=== PATIENT | female | born 1930 | race Hispanic/Latino ===

== ENCOUNTER 2017-08-02 16:44 | Inpatient (IN) | payer MEDICARE ==
--- NOTE | 2017-08-02 17:32 | ED PDOC ---
Arrival/HPI - General Chief Complaint: Eye Problem Time Seen by Provider: 08/02/17 17:23 Historian: Patient, Family - History of Present Illness Narrative History of Present Illness (Text): 87yoF, htn, mitral stenosis, cad, hl, afib on coumadin, stroke with left sided weakness and expressive aphasia but speaking well at this time and had some blurry vision transiently about 1 hr about and feels some right leg pain but otherwise no n/v/berry/dizziness/sob/chest pain/abdomen pain/numbness/tingling/ loss of limb function. 08/02/17 17:30 Time/Duration: 1 hour Symptom Onset: Sudden Symptom Course: Resolved Quality: Aching Severity Level: 1 Activities at Onset: Rest Context: Sitting Past Medical History - Provider Review Nursing Documentation Reviewed: Yes - Travel History Have you recently traveled outside [place] w/in the past 3 mons?: No - Infectious Disease Hx of Infectious Diseases: None - Cardiac Hx Cardiac Disorders: Yes (MITRAL STENOSIS) Hx Hypertension: Yes Hx Mitral Valve Prolapse: Yes - Pulmonary Hx Respiratory Disorders: Yes (PE 05-19-16,SMOKED CIGARETTES 1/2 PPD. QUIT) - Neurological Hx Neurological Disorder: Yes HX Cerebrovascular Accident: Yes (EXPRESSIVE APHASIA) - Renal Hx Renal Disorder: Yes (BLADDER CA WITH CHEMO TX.) - Musculoskeletal/Rheumatological Hx Falls: No - Genitourinary/Gynecological Hx Genitourinary Disorders: Yes Other/Comment: bladder CA - Psychiatric Hx Substance Use: No - Surgical History Hx Coronary Stent: Yes (x2) - Anesthesia Hx Anesthesia: Yes Hx Anesthesia Reactions: No Hx Malignant Hyperthermia: No Family/Social History - Physician Review Nursing Documentation Reviewed: Yes Family/Social History: No Known Family HX Smoking Status: Former Smoker Hx Alcohol Use: No Hx Substance Use: No Allergies/Home Meds Allergies/Adverse Reactions: Allergies No Known Allergies Allergy (Verified 08/02/17 17:02) Home Medications: Home Meds Medication Instructions Recorded Confirmed Atenolol [Tenormin] 50 mg PO DAILY 05/19/16 05/19/16 Atorvastatin [Lipitor] 40 mg PO DAILY 05/19/16 05/19/16 Lisinopril [Zestril] 20 mg PO DAILY 05/19/16 05/19/16 Warfarin [Coumadin] 2 mg PO 1800 05/19/16 05/19/16 amLODIPine [Norvasc] 10 mg PO DAILY 05/19/16 05/19/16 Review of Systems - Review of Systems Constitutional: Normal Eyes: Vision Changes ENT: Normal Respiratory: Normal Cardiovascular: Normal Gastrointestinal: Normal Genitourinary Female: Normal Musculoskeletal: Arthralgias Skin: Normal Neurological: Normal Endocrine: Normal Hemo/Lymphatic: Normal Psychiatric: Normal Physical Exam Vital Signs Reviewed: Yes Vital Signs Temp Pulse Resp BP Pulse Ox 08/02/17 16:59 97.9 F 110 H 18 145/93 H 97 Temperature: Afebrile Blood Pressure: Hypertensive Pulse: Tachycardic Respiratory Rate: Normal Appearance: Positive for: Well-Appearing, Non-Toxic, Comfortable Pain Distress: None Mental Status: Positive for: Alert and Oriented X 3 - Systems Exam Head: Present: Atraumatic, Normocephalic Pupils: Present: PERRL Extroacular Muscles: Present: EOMI Conjunctiva: Present: Normal Ears: Present: Normal Mouth: Present: Moist Mucous Membranes Pharnyx: Present: Normal Nose (External): Present: Atraumatic Nose (Internal): Present: Normal Inspection Neck: Present: Normal Range of Motion Respiratory/Chest: Present: Clear to Auscultation, Good Air Exchange Cardiovascular: Present: Regular Rate and Rhythm Abdomen: No: Tenderness, Distention, Normal Bowel Sounds, Peritoneal Signs, Rebound, Guarding, McBurney's Point Tender, Rovsing's Sign Present, Hernias, Feeding Tubes, Ostomy Tubes, Mass/Organomegaly, Scars, Other Back: Present: Normal Inspection Upper Extremity: Present: Normal Inspection Lower Extremity: Present: Normal Inspection Neurological: Present: GCS=15, CN II-XII Intact, Speech Normal, Motor Func Grossly Intact Skin: Present: Warm, Normal Color Psychiatric: Present: Alert, Oriented x 3, Normal Insight, Normal Concentration Medical Decision Making ED Course and Treatment: 87yoF, htn, mitral stenosis, cad, hl, afib on coumadin, stroke with left sided weakness and expressive aphasia but speaking well at this time and had some blurry vision transiently about 1 hr about and feels some right leg pain but otherwise no n/v/berry/dizziness/sob/chest pain/abdomen pain/numbness/tingling/ loss of limb function. 08/02/17 17:36 08/02/17 18:35 CT head no acute infarct. No ICH. CXR active CHF, possible right infrahilar infiltrate which is likely a function of CHF as well. 08/02/17 18:36 ct pelvis no fracture 08/02/17 18:37 wbc 7 hb 12 plts 302 trop 0.02 INR 4.00 08/02/17 18:37 08/02/17 18:[address] Myers who hs hx of cva with transient blurry vision which resolved, pt with good strength/sensation on repeat eval, he accepted the patient to tele , with neurology consult Dr. Armenta. 08/02/17 19:03 Reassessment Condition: Re-examined, Improved - Lab Interpretations Lab Results: 08/02/17 17:40 08/02/17 17:40 Lab Results 08/02/17 17:40: Sodium 140, Potassium 5.2 H, Chloride 105, Carbon Dioxide 23, Anion Gap 17, BUN 29 H, Creatinine 1.1, Est GFR ( Amer) 57, Est GFR (Non- Af Amer) 47, Random Glucose 149 H, Calcium 9.8, Magnesium 1.7, Total Bilirubin 1.1, AST 31, ALT 24, Alkaline Phosphatase 63, Lactate Dehydrogenase 785 H, Total Creatine Kinase 110, Troponin I 0.02, Total Protein 7.6, Albumin 4.1, Globulin 3.5, Albumin/Globulin Ratio 1.2 08/02/17 17:40: PT 46.9 H, INR 4.00 H*, APTT 41.5 H 08/02/17 17:40: WBC 7.2, RBC 4.41, Hgb 12.1, Hct 37.6, MCV 85.3, MCH 27.4, MCHC 32.2, RDW 14.3, Plt Count 302, MPV 9.8, Gran % 64.0, Lymph % (Auto) 19.1 L, [place] % (Auto) 10.8 H, Eos % (Auto) 5.8 H, Baso % (Auto) 0.3, Gran # 4.63, Lymph # (Auto) 1.4, [place] # (Auto) 0.8 H, Eos # (Auto) 0.4, Baso # (Auto) 0.02 I have reviewed the lab results: Yes - RAD Interpretation Radiology Orders: 08/02/17 17:28 HEAD W/O CONTRAST [CT] Stat CHEST PORTABLE [RAD] Stat 08/02/17 17:29 PELVIS W/O PO OR IV CONTRAST [CT] Stat Human Resource Officer: Radiologist (see mdm) - EKG Interpretation Interpreted by ED Physician: Yes (brittany) Type: 12 lead EKG - Medication Orders Current Medication Orders: Amlodipine Besylate (Norvasc) 10 mg PO DAILY ALISSA Atenolol (Tenormin) 50 mg PO DAILY ALISSA Atorvastatin Calcium (Lipitor) 40 mg PO HS ALISSA Lisinopril (Zestril) 20 mg PO DAILY ALISSA NIHSS Stroke Scale 3 - Date/Time Evaluation Performed Date Performed: 08/02/17 When Was NIHSS Performed: Baseline - How Severe is the Stroke Level of Consciousness: 0=Alert LOC to Questions: 0=Both comments correct LOC to commands: 0=Obeys both correctly Best Gaze: 0=Normal Visual: 0=No visual loss Facial: 0=Normal Motor Arm - Left: 0=No drift Motor Arm - Right: 0=No drift Motor Leg - Left: 0=No drift Motor Leg - Right: 0=No drift Limb Ataxia: 0=Absent Sensory: 0=Normal Best Language: 0=No aphasia Dysarthia: 0=Normal articulation Extinction & Inattention (Neglect): 0=Normal, no object Score: 0 Disposition/Present on Arrival - Present on Arrival Any Indicators Present on Arrival: No History of DVT/PE: No History of Uncontrolled Diabetes: No Urinary Catheter: No History of Decub. Ulcer: No History Surgical Site Infection Following: None - Disposition Have Diagnosis and Disposition been Completed?: Yes Diagnosis: Blurry vision, CHF (congestive heart failure) Disposition: HOSPITALIZED Disposition Time: 19:04 Patient Plan: Admission, Telemetry Condition: IMPROVED Discharge Instructions (ExitCare): Heart Failure (ED) Referrals: Elder Faith MD [Primary Care Provider] - Follow up with primary Forms: [employer] (Pakistani)
[2017-08-02 18:01] LABS: BASO # 0.02 K/mm3 (0.0-2.0); BASO % 0.3 % (0.0-3.0); EOS # 0.4 (0.0-0.7); EOS % 5.8 % (1.5-5.0); GRAN # 4.63 (1.4-6.5); HEMOGLOBIN 12.1 g/dL (12.0-16.0); LYMPH # 1.4 (1.2-3.4); LYMPH % 19.1 % (22.0-35.0); MEAN CELL VOLUME 85.3 fl (80.0-105.0); MEAN CORPUSCULAR HEMOGLOBIN 27.4 pg (25.0-35.0); MEAN CORPUSCULAR HGB CONC 32.2 g/dl (31.0-37.0); MEAN PLATELET VOLUME 9.8 fl (7.0-11.0); MONO # 0.8 (0.1-0.6); MONO % 10.8 % (1.0-6.0); RBC 4.41 10^6/uL (3.5-6.1); RED CELL DISTRIBUTION WIDTH 14.3 % (11.5-14.5); WHITE BLOOD COUNT 7.2 10^3/ul (4.5-11.0)
[2017-08-02 18:14] LABS: ALB/GLOB RATIO 1.2 (1.1-1.8); ALBUMIN 4.1 g/dL (3.0-4.8); CALCIUM 9.8 mg/dL (8.4-10.5)
[2017-08-02 18:19] LABS: PARTIAL THROMBOPLASTIN TIME 41.5 Seconds (25.1-36.5)
[2017-08-02 18:25] LABS: TROPONIN I 0.02 ng/mL
[2017-08-02 18:28] LABS: PROTHROMBIN TIME 46.9 SECONDS (9.4-12.5)
--- NOTE | 2017-08-02 18:31 | CT ---
PROCEDURE: CT HEAD WITHOUT CONTRAST. HISTORY: 87yoF, with transient blurry vision COMPARISON: None available. TECHNIQUE: Axial computed tomography images were obtained through the head/brain without intravenous contrast. Radiation dose: Total exam DLP = 767.03 mGy-cm. This CT exam was performed using one or more of the following dose reduction techniques: Automated exposure control, adjustment of the mA and/or kV according to patient size, and/or use of iterative reconstruction technique. FINDINGS: HEMORRHAGE: No intracranial hemorrhage. BRAIN: No mass effect or edema. Left temporoparietal encephalomalacia consistent with old infarct MCA territory. No evidence of acute infarct. Mild diffuse atrophy. Mild periventricular white matter lucency and patchy foci of deep white matter lucency, consistent with chronic microvascular ischemic change. VENTRICLES: Unremarkable. No hydrocephalus. CALVARIUM: Unremarkable. PARANASAL SINUSES: Chronic sphenoid sinusitis MASTOID AIR CELLS: Unremarkable as visualized. No inflammatory changes. OTHER FINDINGS: None. IMPRESSION: Probable old left temporoparietal infarct. No evidence of acute infarct. No intracranial mass or hemorrhage. Mild atrophy and chronic white matter ischemic change.
--- NOTE | 2017-08-02 18:35 | CT ---
PROCEDURE: CT pelvis HISTORY: 87yoF, right hip pain/tenderness COMPARISON: Not available TECHNIQUE: 2.5 mm contiguous axial sections were acquired through the pelvis. Sagittal and coronal images were reformatted from the axial scan. FINDINGS: There is no evidence of fracture. The hips and sacroiliac joints are preserved. Soft tissues of the pelvis are unremarkable. The patient is status post hysterectomy. There is rectosigmoid diverticular disease without evidence of diverticulitis. There is no ascites. There is no pelvic lymphadenopathy. The urinary bladder is unremarkable. IMPRESSION: No evidence of pelvic fracture. Unremarkable.
--- NOTE | 2017-08-02 18:55 | RAD ---
HISTORY: blurry vision COMPARISON: Portable chest 05/22/2016. FINDINGS: LUNGS: Questionable right infrahilar infiltrate with no left-sided infiltrate appreciated. PLEURA: Trace bilateral pleural effusions appear about the bilateral costophrenic sulci. No pneumothorax bilaterally. CARDIOVASCULAR: Cardiac silhouette appears stable. Pulmonary venous congestion is likely recurrent. OSSEOUS STRUCTURES: No significant abnormalities. VISUALIZED UPPER ABDOMEN: Normal. OTHER FINDINGS: None. IMPRESSION: Active CHF though not as advanced as previously shown. Possible right infrahilar infiltrate though this is likely a function of CHF as well.
[2017-08-02 19:05] LABS: URINE BILIRUBIN NEGATIVE (NEGATIVE); URINE BLOOD TRACE-INTACT (NEGATIVE); URINE GLUCOSE (UA) NEGATIVE (NEGATIVE); URINE LEUKOCYTE ESTERASE MODERATE Leu/uL (NEGATIVE); URINE PROTEIN NEGATIVE mg/dL (<30 mg/dL); URINE UROBILINOGEN 0.2 E.U./dL (<1 E.U./dL)
[2017-08-02 19:07] LABS: URINE APPEARANCE SL CLOUDY (CLEAR); URINE COLOR YELLOW (YELLOW)
[2017-08-02 19:19] LABS: URINE BACTERIA MOD (NEG); URINE RBC NEGATIVE /hpf (0-2)
[2017-08-02] MEDS ORDERED: Metoprolol 1 mg/ml Inj IVP STA (20:22)
[2017-08-02] MEDS ORDERED: Pneumococcal 23-Valent Vaccine IM ONE (22:04)
[2017-08-02] MEDS ORDERED: Influenza Vaccine 60 mcg/0.5 mL SYR (4YR UP) IM ONE (22:04)
--- NOTE | 2017-08-02 22:08 | CP.PCM.PN ---
Subjective - Date & Time of Evaluation Date of Evaluation: 08/02/17 Time of Evaluation: 22:02 - Subjective Subjective: draft 22:00 Patient has heart rate on monitor that is fluctuating between 130 and 160.Rhythm is atrial fibrillation. She received Lopressor 5 mg IV in the ER at about 9 PM. 23:10 95/min. Patient was seen at bedside. Has no complaints now. Denies palpitation, chest pain, sob, nausea, sweating. Medical record was reviewed. Objective - Vital Signs/Intake and Output Vital Signs (last 24 hours): Temp Pulse Resp BP Pulse Ox 98.2 F 112 H 18 110/63 100 08/02/17 21:45 08/02/17 21:45 08/02/17 21:45 08/02/17 21:45 08/02/17 21:45 - Medications Medications: Current Medications Amlodipine Besylate (Norvasc) 10 mg PO DAILY ALISSA Atenolol (Tenormin) 50 mg PO DAILY ALISSA Atorvastatin Calcium (Lipitor) 40 mg PO HS ALISSA Lisinopril (Zestril) 20 mg PO DAILY ALISSA - Labs Labs: PT 46.9 SECONDS (9.4-12.5) H 08/02/17 17:40 INR 4.00 (0.93-1.08) H* 08/02/17 17:40 APTT 41.5 Seconds (25.1-36.5) H 08/02/17 17:40
[2017-08-03 10:20] LABS: FREE T4 1.06 ng/dL (0.78-2.19)
[2017-08-03 11:22] VITALS: BMI 26.4
[2017-08-03 12:04] LABS: ALB/GLOB RATIO 1.2 (1.1-1.8); ALBUMIN 3.8 g/dL (3.0-4.8); ALT/SGPT 19 U/L (7-56); AST/SGOT 20 U/L (14-36); BLOOD UREA NITROGEN 22 mg/dL (7-21); CALCIUM 9.5 mg/dL (8.4-10.5); GFR AFRICAN-AMERICAN > 60; GFR NON-AFRICAN AMERICAN 53
--- NOTE | 2017-08-03 16:47 | MRI ---
PROCEDURE: MRI BRAIN WITHOUT CONTRAST HISTORY: blurry vision COMPARISON: None. TECHNIQUE: Multiplanar, multisequence MR images of the brain were obtained without intravenous contrast enhancement. FINDINGS: HEMORRHAGE: None DWI: Several scattered small acute cortical infarcts are seen in the right posterior frontal parietal and occipital lobes. BRAIN PARENCHYMA: No mass effect or edema. There is extensive chronic cystic encephalomalacia in the left temporal and occipital lobes VENTRICLES: Unremarkable. No hydrocephalus. CRANIUM: Unremarkable. ORBITS: Grossly unremarkable. PARANASAL SINUSES/MASTOIDS: Clear VASCULAR SYSTEM: Skull base flow voids intact. OTHER FINDINGS: None. IMPRESSION: Several scattered small acute cortical infarcts in the right posterior frontal, parietal and occipital lobes. Extensive chronic cystic encephalomalacia in the left temporal and occipital lobes
--- NOTE | 2017-08-03 18:38 | CARD ---
APPROVED REPORT EKG Measurement Heart [id number] <Conclusion> Atrial fibrillation with rapid ventricular response Left posterior fascicular block Abnormal QRS-T angle, consider primary T wave abnormality Abnormal ECG
--- NOTE | 2017-08-03 20:24 | US ---
PROCEDURE: Bilateral carotid artery duplex ultrasound HISTORY: Carotid stenosis CVA PHYSICIAN(S): Ed Levi MD. TECHNIQUE: Duplex sonography and color-flow Doppler were used to evaluate the carotid bifurcations and limited segments of the vertebral arteries bilaterally. FINDINGS: There is mild smooth heterogeneous plaque noted at the carotid bifurcations bilaterally. The peak systolic velocity in the proximal right internal carotid artery is 55 cm/sec. This corresponds to a 20 to 39% proximal right ICA stenosis. Normal systolic velocities are noted in the proximal right external carotid artery. There is antegrade flow in the small right vertebral artery. The peak systolic velocity in the proximal left internal carotid artery is 62 cm/sec. This corresponds to a 20 to 39% proximal left ICA stenosis. Normal systolic velocities are noted in the proximal left external carotid artery. There is antegrade flow in the left vertebral artery. IMPRESSION: 1. Bilateral 20-39% proximal ICA stenoses. 2. Antegrade flow in both vertebral arteries.
[2017-08-03] MEDS ORDERED: Sod Polystyrene Sulf 15 gm/60 ml Susp PO ONE (20:47)
--- NOTE | 2017-08-04 06:02 | CON ---
DATE: HISTORY OF PRESENT ILLNESS: This is a 87-year-old female with past medical history of hypertension, mitral stenosis, coronary artery disease, atrial fibrillation, on Coumadin, and the patient had history of stroke with left-sided weakness and came with some blurring of vision and for an hour some right leg pain. No dizziness. No numbness or tingling in arms, legs or face. PAST MEDICAL HISTORY: As above, hypertension, coronary artery disease, mitral stenosis, atrial fibrillation, stroke. ALLERGIES: NO KNOWN DRUG ALLERGIES. HOME MEDICATIONS: Tenormin, Lipitor, Zestril, Coumadin, Norvasc. REVIEW OF SYSTEMS: A 10-point review of systems was negative except blurring of vision. PHYSICAL EXAMINATION VITAL SIGNS: Blood pressure 145/93. HEENT: Normocephalic and atraumatic. NECK: Supple. NEUROLOGIC: Alert, awake, oriented to self. No aphasia. Cranial nerves II through XII were tested. Pupils reactive. EOM intact. Visual fall full. No facial asymmetry. Tongue midline. Motor examination, spontaneous movement of the extremities noted. Deep tendon reflexes 1+. Both plantars are downgoing. Sensory appears intact. Cerebellar, gait deferred. IMPRESSION AND PLAN: Possibly transient ischemic attack like symptoms with blurring of vision, which disappeared. An MRI of the head was done, which showed multiple small acute infarcts in the frontal, parietal, temporal and occipital area. Several scattered small acute cortical infarcts in right frontal, parietal and occipital lobes. The patient is on Coumadin, and continue present management, and we will follow up. Armando Armenta MD
[2017-08-04 07:12] LABS: ALB/GLOB RATIO 1.1 (1.1-1.8); ALBUMIN 3.4 g/dL (3.0-4.8); ALT/SGPT 24 U/L (7-56); AST/SGOT 25 U/L (14-36); BLOOD UREA NITROGEN 23 mg/dL (7-21); CALCIUM 9.1 mg/dL (8.4-10.5); GFR AFRICAN-AMERICAN > 60; GFR NON-AFRICAN AMERICAN 53
[2017-08-04 07:15] LABS: INR 2.89 (0.93-1.08)
--- NOTE | 2017-08-04 08:13 | HP ---
CHIEF COMPLAINT AND HISTORY OF PRESENT ILLNESS: This is an 87-year-old female who came into the hospital because she started having changes in her vision. The patient does have difficulty with speaking at times because of previous CVA. The patient has a past medical history of atrial fibrillation, on Coumadin. She had a stroke in the past with expressive aphasia. The patient has been having blurred vision about an hour prior to coming to the hospital. She called her primary care doctor, Dr. Faith. She was evaluated in the ER and it is felt that symptoms had improved. It is possible she may have a TIA. The patient denies any weakness in the arms or the legs, although in the ER, it was noted by the ER physician that there was some right leg pain. She had no nausea, no vomiting. No headaches, no abdominal pain, or back pain. No dysuria or frequency. No nocturia. She said she feels well. She has no other complaints. REVIEW OF SYMPTOMS: All the review of symptoms are within normal limits. ALLERGIES: NO KNOWN DRUG ALLERGIES. HOME MEDICATIONS: She is on atenolol, atorvastatin, lisinopril, Coumadin, Norvasc. PAST MEDICAL HISTORY: mitral stenosis, hypertension, bladder CA with chemotherapy, and coronary artery disease with stents. SOCIAL HISTORY: The patient was a smoker. She smoked about half a pack per day, but has quit. FAMILY HISTORY: Noncontributory. PHYSICAL EXAMINATION: VITAL SIGNS: Temperature is 98.6, pulse of 105, blood pressure 138/92, O2 saturation is 98%, height is 5 feet 1 inch, and weight 142 pounds. GENERAL: The patient lying in bed, uncomfortable, and in no acute distress. HEENT: Atraumatic and normocephalic. Anicteric sclerae. Moist mucosa. [place] conjunctivae. No oral lesions. NECK: No JVD, anterior and posterior adenopathy, thyromegaly, or bruits. CARDIOVASCULAR: S1 and S2 regular. No murmur, rubs, or gallop. LUNGS: Clear to auscultation bilaterally. No wheezes, rales, or rhonchi. ABDOMEN: Bowel sounds are positive. Soft, nontender and nondistended. No hepatosplenomegaly. No rebound and no guarding EXTREMITIES: No cyanosis, clubbing, or edema. NEUROLOGIC: I did notice a mild expressive aphasia. PSYCHIATRIC: She is awake, alert and oriented x3. No anxiety or depression. She has normal affect. GENITOURINARY: No CVA tenderness. VASCULAR: 2+ pulses in the carotid pulses and pedal pulses. SKIN: No erythema or nodules SPINE: Shows normal curvature. GAIT: The patient was not seen ambulating. LABORATORY DATA: White count of 7.3, hemoglobin of 12.1. INR is 4. Chemistry shows sodium 140, potassium is 5.2. Troponin is 0.02. The proBNP is 3300. TSH is 2.7. The patient's urine shows glucose is negative, ketones are negative, and nitrites are negative. CT of the head shows probable old left temporoparietal infarct. Chest x-ray done shows advanced , possible right hilar infiltrates. There is a pelvic CT done, shows no evidence of pelvic fracture. MRI shows several scattered small acute cortical infarcts to the right posterior frontal, parietal and occipital lobes, extensive chronic cystic encephalopathy, left temporal and occipital lobes. ASSESSMENT: 1. Cerebrovascular accident of right frontal, parietal, and occipital lobes. 2. Atrial fibrillation, on Coumadin on hold 3. Mitral stenosis. 4. History of bladder cancer. 5. Coronary artery disease with stents. 6. Dyslipidemia. 7. Hypertension. 8. Expressive aphasia. PLAN: The patient is admitted to the hospital. Her neurological symptoms have improved. The patient had an MRI that shows multiple abnormalities. The patient is on Cardizem. He is going to be on Lipitor for dyslipidemia. She was in rapid Afib. She was given IV Cardizem. She is on Norvasc for her hypertension. She is on Tenormin and the a fib did improve after she received her medications. Her Coumadin is on hold due to an elevated INR. She is going to be seen by Dr. Easley. The patient is on lisinopril for her hypertension. The patient is going to be on a heart-healthy diet. We will also get physical therapy to see the patient. The patient is going to be admitted then may need rehab depending on what the physical therapy evaluation shows. We will also get Dr. Armenta to evaluate the patient for the neurological symptoms. I did talk to the patient's sister and daughter at the bedside to give an up-to-date on the patient's diagnoses and plan of care. I will also order carotid ultrasound and I will await further input from the specialists. Rock Myers MD MTDDary
[2017-08-04 09:17] LABS: HDL CHOLESTEROL 40 mg/dL (29-60)
[2017-08-04 09:28] LABS: LDL CHOLESTEROL 53 mg/dL (0-129)
--- NOTE | 2017-08-04 11:25 | PN ---
DATE: SUBJECTIVE: The patient has no complaints of any chest pain. No shortness of breath. No headaches. PHYSICAL EXAMINATION VITAL SIGNS: Temperature is 97.5, pulse of 99, blood pressure is 104/67, respirations 19. GENERAL: The patient is lying in bed, flat, comfortable. HEENT: No oral lesion. Anicteric sclerae. Moist mucosa. NECK: No JVD, adenopathy, or thyromegaly. CARDIOVASCULAR: S1 and S2, regular. No murmurs, rubs, or gallops. LUNGS: Clear to auscultation bilaterally. No wheeze, rales, or rhonchi. ABDOMEN: Bowel sounds are positive. Soft, nontender and nondistended. EXTREMITIES: No cyanosis, clubbing or edema. LABORATORY DATA: Calcium is 5.4 yesterday. Carotid ultrasound done shows bilateral 20% to 39% proximal ICA stenosis. ASSESSMENT 1. Acute cerebrovascular accident to the right frontal, parietal and occipital lobes. 2. Coronary artery disease. 3. Dyslipidemia. 4. Hypertension. 5. History of bladder cancer. 6. Expressive aphasia. 7. Atrial fibrillation, on Coumadin. 8. Mitral valve stenosis. PLAN: The patient is currently comfortable. She is on Lipitor for dyslipidemia. The patient is on Norvasc for hypertension. She is going to continue with her atenolol. The patient is on lisinopril for her hypertension. She is on a heart-healthy diet. The Coumadin is on hold because of her elevated INR. She is being followed by Dr. Easley. Currently, she is on aspirin. I will defer management regarding her cardiac disease to Dr. Easley. The patient will most likely need physical therapy. Rock Myers MD
--- NOTE | 2017-08-04 16:29 | PN ---
DATE: SUBJECTIVE: This is an 87-year-old female with past medical history of hypertension, mitral stenosis, coronary artery disease, atrial fibrillation on Coumadin, stroke with left-sided weakness and some blurring of vision. An MRI showed frontal, parietal, and occipital acute infarct and the patient is on Coumadin, doing well. Continue present management. We will follow up. Armando Armenta MD
--- NOTE | 2017-08-04 18:37 | CON ---
DATE: 08/04/2017 INDICATIONS: Atrial fibrillation, stroke. HISTORY OF PRESENT ILLNESS: This is an 87-year-old woman known to our practice, admitted on 08/03/2017 with visual symptoms, found to have stroke. She has chronic expressive aphasia and weakness in her left side from a prior stroke. There is no chest pain, shortness of breath, orthopnea, PND, syncope, presyncope , lightheadedness, dizziness, or vertigo. No fevers, chills, cough, sputum production, or hemoptysis. No abdominal pain, nausea, vomiting, diarrhea, constipation, or melena. PAST MEDICAL HISTORY: Notable for atrial fibrillation, rheumatic mitral stenosis, congestive heart failure, stroke, hypertension, hyperlipidemia, cerebrovascular disease, and bladder cancer. She is a former smoker. MEDICATIONS: At the time of admission include warfarin, Lipitor, Norvasc, Protonix, atenolol, lisinopril, and Coumadin. ALLERGIES: THERE ARE NO MEDICATION ALLERGIES REPORTED. SOCIAL HISTORY: She lives at home. She is a former smoker. She does not drink alcohol significantly. She is ambulatory. FAMILY HISTORY: Noncontributory. REVIEW OF SYSTEMS: A 10-point review of systems is otherwise unremarkable except as noted above. PHYSICAL EXAMINATION: GENERAL: She is well developed, elderly lady, sitting on her bed in telemetry, in no acute distress. VITAL SIGNS: Notable for atrial fibrillation, 80-107 beats per minute. She is afebrile, blood pressure 120/64, respirations 18-20, and O2 sat 95%-97% on room air. HEENT: Reveals no neck vein distention, thyromegaly, or carotid bruits. Mucous membranes are moist. Conjunctivae are pink. NECK: Supple. LUNGS: Lung fall clear. HEART: Reveals an irregular rhythm. Soft systolic murmur along the left sternal border. Possible diastolic rumble. ABDOMEN: Soft, bowel sounds are present. No mass, organomegaly, tenderness, rebound, or guarding. EXTREMITIES: Reveal no cyanosis, clubbing, or edema. NEUROLOGIC: She is awake and alert. She has expressive aphasia. PSYCHIATRIC: Normal as to mood and affect. SKIN: Warm and dry. No rash or cellulitis. LABORATORY AND IMAGING DATA: EKG demonstrates atrial fibrillation, nonspecific ST wave changes. A portable chest x-ray revealed CHF. CT scan of the head revealed probable old left temporoparietal infarct. CT scan of the pelvis revealed no evidence of pelvic fracture, unremarkable study. Brain MRI reveals several scattered small acute cortical infarcts in the posterior frontal, parietal, and occipital lobes, etc. Carotid artery ultrasound reveals bilateral 20%-39% internal carotid artery stenosis. CBC is unremarkable. PT 46.9 initially, INR 4.0 initially, PTT 41.5 initially. Repeat today; PT 34, INR 2.89. Electrolytes notable for potassium of 5.2, repeat 4.8; BUN and creatinine unremarkable. Blood sugar is 100-200 range, magnesium 1.7. LFTs unremarkable. CK 110, troponin 0.02. BNP 3300. Lipids unremarkable. Thyroid studies normal. Urinalysis is noted. IMPRESSION AND PLAN: Shabnam Graff is an 87-year-old woman with rheumatic mitral stenosis; atrial fibrillation, on Coumadin, who presents with visual changes and evidence of new strokes as well as old stroke. These probably are on embolic basis. However, she was supratherapeutic with regard to anticoagulation on her arrival in the emergency room initially. She is undergoing a neurologic evaluation by Dr. Armenta. I have spoken with Dr. Myers. She is getting Lipitor, Norvasc, atenolol, lisinopril. Coumadin can be resumed since she is now in the therapeutic range. She will have a stroke evaluation. I will order an echocardiogram. I will review her old records and speak with Dr. Faith and Dr. Blancas. I will follow along with you. I will make additional recommendations based on her clinical course. Misha Easley MD [facility]
[2017-08-04] MEDS ORDERED: Pantoprazole 40 mg EC Tab PO ONE (20:40)
[2017-08-04 23:28] VITALS: TEMP 97.8
[2017-08-05 05:44] VITALS: O2SAT 96
--- NOTE | 2017-08-05 06:28 | CP.PCM.PN ---
Subjective - Date & Time of Evaluation Date of Evaluation: 08/05/17 Time of Evaluation: 06:27 - Subjective Subjective: draft pt seen protonix for heart burn Objective - Vital Signs/Intake and Output Vital Signs (last 24 hours): Temp Pulse Resp BP Pulse Ox 97.8 F 85 20 135/63 96 08/05/17 05:43 08/05/17 05:43 08/05/17 05:43 08/05/17 05:43 08/05/17 05:43 Intake and Output: 08/04/17 08/05/17 18:59 06:59 Intake Total 640 240 Output Total 0 Balance 640 240 - Medications Medications: Current Medications Acetaminophen (Tylenol 325mg Tab) 650 mg PO Q4H PRN PRN Reason: Headache Last Admin: 08/03/17 10:19 Dose: 325 mg Amlodipine Besylate (Norvasc) 10 mg PO DAILY [facility] Last Admin: 08/04/17 09:17 Dose: 10 mg Atenolol (Tenormin) 50 mg PO DAILY [facility] Last Admin: 08/04/17 09:18 Dose: 50 mg Atorvastatin Calcium (Lipitor) 40 mg PO [facility] Last Admin: 08/04/17 21:17 Dose: 40 mg Lisinopril (Zestril) 20 mg PO DAILY [facility] Last Admin: 08/04/17 09:17 Dose: 20 mg - Labs Labs: 08/04/17 05:30 PT 34.0 SECONDS (9.4-12.5) H 08/04/17 05:30 INR 2.89 (0.93-1.08) H 08/04/17 05:30 APTT 41.5 Seconds (25.1-36.5) H 08/02/17 17:40
[2017-08-05 06:39] LABS: INR 1.9 (0.93-1.08); PROTHROMBIN TIME 22.1 SECONDS (9.4-12.5)
[2017-08-05 06:47] LABS: ALB/GLOB RATIO 1.2 (1.1-1.8); ALBUMIN 3.4 g/dL (3.0-4.8); CALCIUM 9.5 mg/dL (8.4-10.5)
--- NOTE | 2017-08-05 09:48 | CP.PCM.PN ---
Subjective - Date & Time of Evaluation Date of Evaluation: 08/05/17 Time of Evaluation: 07:00 - Subjective Subjective: Stable on 2R. No CP or SOB. She feels OK and wants to go home. Her speech is better. I spoke with Marivel Faith and Magalis yesterday. V/S noted. AF PE: Lungs: clear Cor.: irreg S1S2, sys. murmur, soft rumble Abd.: softExt.: no edema Neuro.: alert Echo: Will read; Prelim> Nl LV, mod.MS with heavy calcification, sev. TR and PH. See full report. Objective - Vital Signs/Intake and Output Vital Signs (last 24 hours): Temp Pulse Resp BP Pulse Ox 97.8 F 113 H 20 126/68 96 08/05/17 05:43 08/05/17 09:36 08/05/17 05:43 08/05/17 09:36 08/05/17 05:43 Intake and Output: 08/05/17 08/05/17 06:59 18:59 Intake Total 240 Balance 240 - Medications Medications: Current Medications Acetaminophen (Tylenol 325mg Tab) 650 mg PO Q4H PRN PRN Reason: Headache Last Admin: 08/03/17 10:19 Dose: 325 mg Amlodipine Besylate (Norvasc) 10 mg PO DAILY [facility] Last Admin: 08/05/17 09:36 Dose: 10 mg Atenolol (Tenormin) 50 mg PO DAILY [facility] Last Admin: 08/05/17 09:36 Dose: 50 mg Atorvastatin Calcium (Lipitor) 40 mg PO HS [facility] Last Admin: 08/04/17 21:17 Dose: 40 mg Lisinopril (Zestril) 20 mg PO DAILY [facility] Last Admin: 08/05/17 09:36 Dose: 20 mg Warfarin Sodium (Coumadin) 5 mg PO 1800 [facility] PRN Reason: Protocol - Labs Labs: 08/05/17 05:30 PT 22.1 SECONDS (9.4-12.5) H 08/05/17 05:30 INR 1.90 (0.93-1.08) H 08/05/17 05:30 APTT 41.5 Seconds (25.1-36.5) H 08/02/17 17:40 Assessment and Plan - Assessment and Plan (Free Text) Assessment: CVAs, old and new, probably embolic in nature AF MS with sev. TR and PH CAD/PCI CHF HBP HLD CVD Former Smoker Bladder cancer Plan: Ok for D/C Out pt f/u. Will consider Watchman device given presumed embolic events on therapeutic coumadin. Probable referral to [facility] for this. As per Neuro., Dr. Myers. Resume warfarin today.
--- NOTE | 2017-08-05 10:37 | CARD ---
APPROVED REPORT EXAM: Two-dimensional and M-mode echocardiogram with Doppler and color Doppler. Other Information Quality : FairRhythm : INDICATION Strokes, AF, MS 2D DIMENSIONS IVSd1.1 (0.7-1.1cm)LVDd3.6 (3.9-5.9cm) LVOT Diameter1.9 (1.8-2.4cm)PWd1.3 (0.7-1.1cm) FS (%) 15.1 % M-Mode DIMENSIONS Left Atrium (MM)5.80 (2.5-4.0cm)Aortic Root2.60 (2.2-3.7cm) Aortic Cusp Exc.1.40 (1.5-2.0cm) Aortic Valve AoV Peak Dfjfevvp719.0cm/sAoV VTI38.1cmAO Peak GR.13mmHg LVOT Peak Rgkztmmt90.0cm/sLVOT VTI19.20cmAO Mean GR.7mmHg OSCAR (VMAX)1.10fc9YIB (VTI)1.43cm2 Mitral Valve MV E Phzpdgtx551.0cm/sMV E Peak Gr.41mmHgMV E Mean Gr.19mmHg E/A ratio0.0 TDI Lateral E' Peak V9.07cm/sMedial E' Peak V4.68cm/sE/Lateral E'33.7 E/Medial E'65.4 Tricuspid Valve TR Peak Odndkxpd080uk/sRAP KFKMZFXZ38vcUlED Peak Gr.75mmHg [id number] LEFT VENTRICLE The left ventricle is normal size. There is normal left ventricular wall thickness. The left ventricular function is normal. The left ventricular ejection fraction is within the normal range. There is normal LV segmental wall motion. RIGHT VENTRICLE The right ventricle is normal size. ATRIA The left atrium is severely dilated. The right atrium is mildly dilated. AORTIC VALVE The aortic valve is moderately calcified. There is mild valvular aortic stenosis. MITRAL VALVE Mitral annular calcification is severe. The MV leaflets are obscured. There is calcification of the subvalvular structures. There is moderate to severe mitral valve stenosis. TRICUSPID VALVE The tricuspid valve is normal in structure. There is moderate tricuspid regurgitation. There is severe pulmonary hypertension. PULMONIC VALVE The pulmonary valve is normal in structure. There is trace pulmonic valvular regurgitation. GREAT VESSELS The aortic root is normal in size. PERICARDIAL EFFUSION There is no pericardial effusion. <Conclusion> This is a limited study. The left ventricle is normal size. There is normal left ventricular wall thickness. The left ventricular function is normal. The left ventricular ejection fraction is within the normal range. The aortic valve is moderately calcified. There is mild valvular aortic stenosis. Mitral annular calcification is severe. The MV leaflets are obscured. There is calcification of the subvalvular structures. There is moderate to severe mitral valve stenosis. There is moderate tricuspid regurgitation. There is severe pulmonary hypertension.
[2017-08-05 13:04] VITALS: BP 127/84; PULSE 68; RESP 18
[2017-08-05] MEDS ORDERED: Pantoprazole 40 mg EC Tab PO ONE (20:26)
--- NOTE | 2017-08-06 16:46 | DS ---
HISTORY OF PRESENT ILLNESS: This is an 87-year-old female who had come into the hospital and was found to have acute CVA in the right frontal, parietal and occipital lobes. The patient had improvement of her symptoms. She had some visual changes that improved. The MRI had confirmed the patient's showering of emboli that most likely caused her stroke. Carotid Dopplers have been done and did not show any narrowing. The patient had echo that was a limited study. There was mild valvular aortic stenosis. No significant abnormality. EF was normal. There was mitral annular calcification that was severe. There was also some moderate mitral valve stenosis and moderate tricuspid regurgitation with severe pulmonary hypertension. . ASSESSMENT 1. Acute cerebrovascular accident of the right frontal, parietal and occipital lobes. 2. Coronary artery disease. 3. Dyslipidemia. 4. Hypertension. 5. History of bladder cancer. 6. Expressive aphasia. 7. Atrial fibrillation, on Coumadin. 8. Mitral valve stenosis. 9. Pulmonary hypertension. 10. Tricuspid regurgitation. PLAN: The patient is currently comfortable. She was on Coumadin. She is going to continue with her Coumadin. She is going to get 4 mg and get repeat INR done next week. The patient was seen by Dr. Easley. He cleared the patient to be discharged home. She is going to continue with aspirin and Norvasc for hypertension. She is on Lipitor for dyslipidemia. She is on atenolol and the patient is on lisinopril for her hypertension. She is on a heart-healthy diet. CONDITION: Stable. ACTIVITIES: Increase as tolerated. Rock Myers MD
== END 2017-08-05 13:15 | disposition home or self-care (01) | DRG 65 ==
LOC: ED 16:44 → ERH 19:05 → 2RNO 21:38 → OBSVTOIN 08-03 16:08
PROVIDERS: ADMIT Internal Medicine Nephrology; ATTEND Internal Medicine Nephrology
DX: I63.9 Cerebral infarction, unspecified (principal); I69.354 Hemiplegia and hemiparesis following cerebral infarction affecting left non-dominant side; I11.0 Hypertensive heart disease with heart failure; I50.9 Heart failure, unspecified; H53.8 Other visual disturbances; I25.10 Atherosclerotic heart disease of native coronary artery without angina pectoris; I48.91 Unspecified atrial fibrillation; I08.3 Combined rheumatic disorders of mitral, aortic and tricuspid valves; E78.5 Hyperlipidemia, unspecified; R29.702 NIHSS score 2; I27.20 Pulmonary hypertension, unspecified; Z79.01 Long term (current) use of anticoagulants; I69.320 Aphasia following cerebral infarction; Z85.51 Personal history of malignant neoplasm of bladder; Z95.5 Presence of coronary angioplasty implant and graft; Z87.891 Personal history of nicotine dependence

== ENCOUNTER 2017-08-28 08:35 | Inpatient (IN) | payer MEDICARE, OTHER ==
[2017-08-28 08:36] VITALS: BMI 26.4
--- NOTE | 2017-08-28 08:59 | ED PDOC ---
Arrival/HPI - General Time Seen by Provider: 08/28/17 08:44 Historian: Patient, Family - History of Present Illness Narrative History of Present Illness (Text): you were treated in the ED today for hx of DNR/DNI, CAD, HL, HTN, Pulmonary HTN , Bladder CA, Afib on coumadin, mitral stenosis, tricuspid regurgitation, CVA expressive dysphagia and with recent discharge 08/05/17 for stroke and now having back pain and intermittent progressive difficulty breathing and back pain but, otherwise without any nausea/vomiting/headache/dizziness//chest pain/ abdomen pain/numbness/tingling/loss of limb function/pain with urination. 08/28/17 08:56 08/28/17 09:00 Time/Duration: > week (3) Symptom Onset: Gradual Symptom Course: Unchanged, Intermittent Quality: Aching Severity Level: 2 Activities at Onset: Rest Context: Sitting Past Medical History - Provider Review Nursing Documentation Reviewed: Yes - Travel History Have you recently traveled outside [place] w/in the past 3 mons?: No - Infectious Disease Hx of Infectious Diseases: None - Cardiac Hx Cardiac Disorders: Yes (MITRAL STENOSIS) Hx Congestive Heart Failure: No Hx Hypertension: Yes - Pulmonary Hx Chronic Obstructive Pulmonary Disease (COPD): No - Neurological HX Cerebrovascular Accident: Yes (EXPRESSIVE APHASIA) - HEENT Hx HEENT Disorder: Yes (blurred vision today resolving) Hx Blind: No Hx Cataracts: No Hx Deafness: No Hx Difficulty Chewing: No Hx Epistaxis: No Hx Glaucoma: No Hx Macular Degeneration: No - Renal Hx Renal Failure: No - Endocrine/Metabolic Hx Diabetes Mellitus Type 1: No Hx Diabetes Mellitus Type 2: No Hx Hypothyroidism: No - Hematological/Oncological Hx Blood Disorders: Yes Hx AIDS: No Hx Anemia: No Hx Cancer: Yes (bladder "yrs ago") Hx Chemotherapy: Yes Hx Cirrhosis: No Hx Hemophilia: No Hx Hepatitis A: No Hx Hepatitis B: No Hx Hepatitis C: No Hx Metastasis: No Hx Shingles: No Hx Sickle Cell Disease: No Hx Unexplained Bleeding: No - Integumentary Hx Dermatological Disorder: Yes Hx Basal Cell Carcinoma: No Hx Eczema: No Hx Melanoma: No Hx Psoriasis: No Hx Squamous Cell Carcinoma: No Other/Comment: multiple skin discolorations to arms and legs, r ft bunyon and 2nd toe hammertoe, left ft grreat toe bruise - Musculoskeletal/Rheumatological Hx Arthritis: No - Gastrointestinal Hx Gastrointestinal Disorders: Yes Hx Colostomy: No Hx Crohn's Disease: No Hx Diverticulitis: No Hx Gall Bladder Disease: Yes Hx Gastroesophageal Reflux: No Hx Gastrointestinal Ulcer: No Hx Ileostomy: No Hx Liver Failure: No Hx Pancreatitis: No HX Swallowing Problems: No - Genitourinary/Gynecological Hx Genitourinary Disorders: Yes Hx Hematuria: No Hx Incontinence: No Hx Prostate Problems: No Hx Sexually Transmitted Diseases: No Hx Urinary Tract Infection: No Other/Comment: bladder CA - Psychiatric Hx Substance Use: No - Surgical History Hx Amputation: No Hx Appendectomy: No Hx Cardiac Catheterization: Yes Hx Cholecystectomy: Yes Hx Coronary Stent: Yes (x2) Hx Gastric Bypass Surgery: No Hx Hysterectomy: No Hx Inguinal Hernia Repair: No Hx Joint Replacement: No Hx Kidney Transplant: No Hx Liver Transplant: No Hx Mastectomy: No Hx Musculoskeletal Surgery: No Hx Open Heart Surgery: No Hx Orthopedic Surgery: No Hx Splenectomy: No Hx Valve Replacement: (mvp,mitral stenosis) - Anesthesia Hx Anesthesia: Yes Hx Anesthesia Reactions: No Hx Malignant Hyperthermia: No Family/Social History - Physician Review Nursing Documentation Reviewed: Yes Family/Social History: No Known Family HX Smoking Status: Former Smoker Hx Alcohol Use: No Hx Substance Use: No Allergies/Home Meds Allergies/Adverse Reactions: Allergies No Known Allergies Allergy (Verified 08/02/17 17:02) Home Medications: Home Meds Medication Instructions Recorded Confirmed Atorvastatin [Lipitor] 40 mg PO DAILY 05/19/16 08/28/17 amLODIPine [Norvasc] 10 mg PO DAILY 05/19/16 08/28/17 Warfarin [Coumadin] 4 mg PO MWF 08/03/17 08/28/17 Review of Systems - Review of Systems Constitutional: Fatigue Eyes: Normal ENT: Normal Respiratory: SOB Cardiovascular: Normal Gastrointestinal: Normal Genitourinary Female: Normal Musculoskeletal: Back Pain Skin: Normal Neurological: Normal Endocrine: Normal Hemo/Lymphatic: Normal Psychiatric: Normal Physical Exam Vital Signs Reviewed: Yes Vital Signs Temp Pulse Resp BP Pulse Ox 08/28/17 08:54 97.5 F L 109 H 16 135/71 86 L Appearance: Positive for: Uncomfortable Pain Distress: None Mental Status: Positive for: Alert and Oriented X 3 - Systems Exam Head: Present: Atraumatic, Normocephalic Pupils: Present: PERRL Extroacular Muscles: Present: EOMI Conjunctiva: Present: Normal Ears: Present: Normal Mouth: Present: Moist Mucous Membranes Pharnyx: Present: Normal Nose (External): Present: Atraumatic Nose (Internal): Present: Normal Inspection Neck: Present: Normal Range of Motion, Other Respiratory/Chest: Present: Clear to Auscultation, Good Air Exchange Cardiovascular: Present: Regular Rate and Rhythm Abdomen: Present: Other (no pulsatile masses). No: Tenderness, Distention, Normal Bowel Sounds, Peritoneal Signs, Rebound, Guarding, McBurney's Point Tender, Rovsing's Sign Present, Hernias, Feeding Tubes, Ostomy Tubes, Mass/ Organomegaly, Scars Back: Present: Normal Inspection, Other (no c-t-l spinal or paraspinal tenderness) Upper Extremity: Present: Normal Inspection Lower Extremity: Present: Edema, Other (b/l le edema w from/warm/sensation/cap refill/distal pulses+) Neurological: Present: GCS=15, CN II-XII Intact, Speech Normal, Motor Func Grossly Intact Skin: Present: Warm, Normal Color Psychiatric: Present: Alert, Oriented x 3, Normal Insight, Normal Concentration Medical Decision Making ED Course and Treatment: you were treated in the ED today for hx of DNR/DNI, CAD, HL, HTN, Pulmonary HTN , Bladder CA, Afib on coumadin, mitral stenosis, tricuspid regurgitation, CVA expressive dysphagia and with recent discharge 08/05/17 for stroke and now having back pain and intermittent progressive difficulty breathing and back pain but, otherwise without any nausea/vomiting/headache/dizziness//chest pain/ abdomen pain/numbness/tingling/loss of limb function/pain with urination. You were otherwise breathing easily, smiling and talking short words with daughter, good strength/sensation, both leg swelling and right slightly larger than left but with good distal pulses, clear lungs, no abdomen tenderness, no fever temp 97.9, fast heart rate 109____, stable breathing rate 16, low oxygen level 86% room air and 90s on oxygen and 95% on BIPAP, elevated blood pressure 135/71 which we recommend repeat in 2-3 days primary care office to determine further treatment, you have blood tests mild infection count 13.5, stable blood level hemoglobin 11.7/platelets 453, stable chemistry, except mildly elevated potassium 5.3, mildly elevated bun 25, mildly elevated glucose 153, heart blood test 0.02, lactic 2.2, heart failure test 7840, urine test____, radiology chest xray shows vascular congestion with bibasilar infiltrates and small effusions, both lower legs ultrasound negative, ECG atrial fibrilliation, tylenol, zosyn, BIPAP, lasix, and due to CHF exacerbation held fluids at this time with sepsis, observation done in the ED with improvement. Report Date : 08/28/2017 09:35:42 Procedure: Chest xray Dictator : Saman Smith MD IMPRESSION: Vascular congestion with bibasilar infiltrates and small effusions 08/28/17 10:52 08/28/17 11:03 d/w Dr. Myers and will admit to inpatient telemetry Reassessment Condition: Re-examined, Improved - Lab Interpretations Lab Results: 08/28/17 09:20 08/28/17 09:20 Lab Results 08/28/17 10:00: Urine Color Dark yellow, Urine Appearance Sl cloudy, Urine pH 6.0, Ur Specific Kun[place] 1.025, Urine Protein 30 H, Urine Glucose (UA) Negative , Urine Ketones Negative, Urine Blood Small H, Urine Nitrate Negative, Urine Bilirubin Negative, Urine Urobilinogen 0.2, Ur Leukocyte Esterase Small H, Urine RBC 5 - 10, Urine WBC 5 - 10, Ur Epithelial Cells 3 - 4, Urine Bacteria Few 08/28/17 09:20: pO2 31, VBG pH 7.31 L, VBG pCO2 53.0, VBG HCO3 26.7, VBG Total CO2 28.3 H, VBG O2 Sat (Calc) 62.7, VBG Base Excess -0.4 L, VBG Potassium 5.4 H , Sodium 134.0, Chloride 101.0, Glucose 157 H, Lactate 2.2 H, FiO2 21.0, Venous Blood Potassium 5.4 H 08/28/17 09:20: Sodium 138, Chloride 100, Potassium 5.3 H, Carbon Dioxide 27, Anion Gap 16, BUN 25 H, Creatinine 0.9, Est GFR ( Amer) > 60, Est GFR ( Non-Af Amer) 60, Random Glucose 153 H, Calcium 9.1, Magnesium 1.7, Total Bilirubin 0.7, AST 32, ALT 74 H, Alkaline Phosphatase 89, Lactate Dehydrogenase 732 H, Total Creatine Kinase 55, Troponin I 0.02, NT-Pro-B Natriuret Pep 7840 H , Total Protein 7.0, Albumin 3.9, Globulin 3.1, Albumin/Globulin Ratio 1.2 08/28/17 09:20: PT 42.1 H, INR 3.57 H*, APTT 39.1 H 08/28/17 09:20: WBC 13.5 H D, RBC 4.40, Hgb 11.7 L, Hct 37.0, MCV 84.1, MCH 26.6 , MCHC 31.6, RDW 14.8 H, Plt Count 453 H, MPV 8.6, Gran % 81.4 H, Lymph % (Auto ) 5.9 L, Sunflower % (Auto) 10.5 H, Eos % (Auto) 2.1, Baso % (Auto) 0.1, Gran # 11.02 H, Lymph # (Auto) 0.8 L, Sunflower # (Auto) 1.4 H, Eos # (Auto) 0.3, Baso # ( Auto) 0.02 I have reviewed the lab results: Yes - RAD Interpretation Radiology Orders: 08/28/17 08:53 DUPLEX LOWER EXTRM VEIN BILAT [US] Stat 08/28/17 08:54 CHEST PORTABLE [RAD] Stat Beater Machine Operator: Radiologist - EKG Interpretation Interpreted by ED Physician: Yes (afib) Type: 12 lead EKG - Medication Orders Current Medication Orders: Amlodipine Besylate (Norvasc) 10 mg PO DAILY [facility] Atorvastatin Calcium (Lipitor) 40 mg PO HS [facility] Docusate Sodium (Colace) 100 mg PO TID [facility] Furosemide (Lasix) 40 mg IM STAT STA Stop: 08/28/17 11:01 Lisinopril (Zestril) 20 mg PO DAILY [facility] Discontinued Medications Acetaminophen (Tylenol 325mg Tab) 975 mg PO STAT STA Stop: 08/28/17 08:56 Last Admin: 08/28/17 09:05 Dose: 975 mg MAR Pain/Vitals Document 08/28/17 09:05 MS (Rec: 08/28/17 09:17 [id number]) Pain Reassessment Is This A Pain ReAssessment? No Sleep Is patient sleeping during reassessment? No Presence of Pain Presence of Pain Yes Pain Scale Used Pain Scale Used Numeric Location Upper or Lower Upper Pain Location Body Site Back Description Intermittent Intensity 9 Scale Used Numeric Pain Behavior Restlessness Piperacillin Sod/Tazobactam Sod (Zosyn 4.5 Gm In Ns 100ml) 4.5 gm in 100 mls @ 200 mls/hr IVPB STAT STA PRN Reason: Protocol Stop: 08/28/17 10:06 Last Admin: 08/28/17 09:56 Dose: 200 mls/hr eMAR Start Stop Document 08/28/17 09:56 MS (Rec: 08/28/17 09:57 [id number]) Intravenous Solution Start Date 08/28/17 Start Time 09:57 End Date 08/28/17 End time 10:27 Total Infusion Time 30 Disposition/Present on Arrival - Present on Arrival Any Indicators Present on Arrival: No History of DVT/PE: No History of Uncontrolled Diabetes: No Urinary Catheter: No History Surgical Site Infection Following: None - Disposition Have Diagnosis and Disposition been Completed?: Yes Diagnosis: CHF (congestive heart failure), Pneumonia Disposition: HOSPITALIZED Disposition Time: 11:05 Patient Plan: Admission, Telemetry Condition: IMPROVED Discharge Instructions (ExitCare): Heart Failure (ED) Referrals: Elder Faith MD [Primary Care Provider] - Follow up with primary
[2017-08-28 09:28] LABS: VENOUS BLOOD GAS BASE EXCESS -0.4 mmol/L (0.0-2.0); VENOUS BLOOD GAS PO2 31 mm/Hg (30-55); VENOUS BLOOD PH 7.31 (7.32-7.43)
[2017-08-28] MEDS ORDERED: Piperacill/Tazo 4.5gm in NS 4.5 GM/100 ML BAG IVPB STA (09:37)
--- NOTE | 2017-08-28 09:37 | RAD ---
HISTORY: 87yoF, sob COMPARISON: 08/02/2017 FINDINGS: LUNGS: Bibasilar infiltrates PLEURA: Small bilateral effusions CARDIOVASCULAR: Vascular congestion OSSEOUS STRUCTURES: No significant abnormalities. VISUALIZED UPPER ABDOMEN: Normal. OTHER FINDINGS: None. IMPRESSION: Vascular congestion with bibasilar infiltrates and small effusions
[2017-08-28 09:39] LABS: ALB/GLOB RATIO 1.2 (1.1-1.8); ALBUMIN 3.9 g/dL (3.0-4.8); ALT/SGPT 74 U/L (7-56); AST/SGOT 32 U/L (14-36); BLOOD UREA NITROGEN 25 mg/dL (7-21); CALCIUM 9.1 mg/dL (8.4-10.5); GFR AFRICAN-AMERICAN > 60; GFR NON-AFRICAN AMERICAN 60
[2017-08-28 09:41] LABS: BASO # 0.02 K/mm3 (0.0-2.0); BASO % 0.1 % (0.0-3.0); EOS # 0.3 (0.0-0.7); EOS % 2.1 % (1.5-5.0); GRAN # 11.02 (1.4-6.5); GRAN % 81.4 % (50.0-68.0); HEMOGLOBIN 11.7 g/dL (12.0-16.0); LYMPH # 0.8 (1.2-3.4); LYMPH % 5.9 % (22.0-35.0); MEAN CELL VOLUME 84.1 fl (80.0-105.0); MEAN CORPUSCULAR HEMOGLOBIN 26.6 pg (25.0-35.0); MEAN CORPUSCULAR HGB CONC 31.6 g/dl (31.0-37.0); MEAN PLATELET VOLUME 8.6 fl (7.0-11.0); MONO # 1.4 (0.1-0.6); MONO % 10.5 % (1.0-6.0); RBC 4.4 10^6/uL (3.5-6.1); RED CELL DISTRIBUTION WIDTH 14.8 % (11.5-14.5); WHITE BLOOD COUNT 13.5 10^3/ul (4.5-11.0)
[2017-08-28 09:58] LABS: PARTIAL THROMBOPLASTIN TIME 39.1 Seconds (25.1-36.5); PROTHROMBIN TIME 42.1 SECONDS (9.4-12.5)
[2017-08-28 10:00] LABS: INR 3.57 (0.93-1.08)
[2017-08-28 10:02] LABS: B-TYPE NATRIURETIC PEPTIDE 7840 pg/mL (0-450); TROPONIN I 0.02 ng/mL
[2017-08-28 10:12] LABS: URINE BILIRUBIN NEGATIVE (NEGATIVE); URINE BLOOD SMALL (NEGATIVE); URINE GLUCOSE (UA) NEGATIVE (NEGATIVE); URINE LEUKOCYTE ESTERASE SMALL Leu/uL (NEGATIVE); URINE PROTEIN 30 mg/dL (<30 mg/dL); URINE UROBILINOGEN 0.2 E.U./dL (<1 E.U./dL)
[2017-08-28 10:14] LABS: URINE APPEARANCE SL CLOUDY (CLEAR); URINE COLOR DARK YELLOW (YELLOW)
[2017-08-28 10:45] LABS: URINE BACTERIA FEW (NEG)
[2017-08-28] MEDS ORDERED: Metoprolol 1 mg/ml Inj IVP ONE (12:29)
[2017-08-28] MEDS ORDERED: Metoprolol 1 mg/ml Inj IVP STA (13:38)
[2017-08-28 13:44] LABS: VENOUS BLOOD GAS BASE EXCESS 2.5 mmol/L (0.0-2.0); VENOUS BLOOD GAS PO2 42 mm/Hg (30-55)
--- NOTE | 2017-08-28 14:32 | CARD ---
APPROVED REPORT EKG Measurement Heart [id number] <Conclusion> Atrial fibrillation with rapid ventricular response Right axis deviation Low voltage QRS Abnormal ECG
--- NOTE | 2017-08-28 14:35 | US ---
HISTORY: Leg pain and swelling. Evaluate for DVT PHYSICIAN(S): Ed Levi MD. TECHNIQUE: Duplex sonography and color-flow Doppler with graded compression were used to evaluate the deep venous systems of both lower extremities. FINDINGS: The visualized deep venous systems of both lower extremities are sonographically normal and compressible. Normal wave forms and augmentation are seen. There is no sonographic evidence for deep venous thrombosis in the visualized segments of both lower extremities. There is a 2.2 x 3.9 cm fluid collection in the left popliteal fossa, consistent with a Vázquez cyst. IMPRESSION: No sonographic evidence for deep venous thrombosis in the visualized segments of both lower extremities.
[2017-08-29 07:21] LABS: MEAN CELL VOLUME 83.4 fl (80.0-105.0); MEAN CORPUSCULAR HEMOGLOBIN 25.6 pg (25.0-35.0); MEAN CORPUSCULAR HGB CONC 30.7 g/dl (31.0-37.0); MEAN PLATELET VOLUME 8.8 fl (7.0-11.0); RBC 4.29 10^6/uL (3.5-6.1); RED CELL DISTRIBUTION WIDTH 15.2 % (11.5-14.5); WHITE BLOOD COUNT 10.4 10^3/ul (4.5-11.0)
[2017-08-29] MEDS ORDERED: Azithromycin 500 MG in Sodium Chloride 0.9% 250 ML IVPB SCH (07:30)
[2017-08-29 07:42] LABS: ALB/GLOB RATIO 1.1 (1.1-1.8); ALBUMIN 3.4 g/dL (3.0-4.8); ALT/SGPT 59 U/L (7-56); AST/SGOT 42 U/L (14-36); BLOOD UREA NITROGEN 25 mg/dL (7-21); CALCIUM 8.9 mg/dL (8.4-10.5); GFR AFRICAN-AMERICAN > 60; GFR NON-AFRICAN AMERICAN 53
[2017-08-29] MEDS: Metoprolol 1 mg/ml Inj IV SCH ×2 (08:49→17:53)
[2017-08-29] MEDS: Azithromycin 500MG/NS 250ml 500 MG/250 ML BAG IVPB SCH (09:19)
[2017-08-29] MEDS: cefTRIAXone 1 gm 1 GM/100 ML BAG IVPB SCH (09:19)
--- NOTE | 2017-08-29 13:09 | CON ---
DATE: 08/29/2017 INDICATIONS: Shortness of breath, back pain. HISTORY OF PRESENT ILLNESS: This is an 87-year-old woman, well known to our practice, admitted yesterday with back discomfort. Also, shortness of breath. She was found to have evidence of pulmonary congestion, treated with IV Lasix. She was admitted to telemetry. She slept the night with a BiPAP mask. She feels better this morning, but still has a little back pain. She was recently discharged from [facility] after admission for stroke. There was a history of a remote stroke. PAST MEDICAL HISTORY: Additional past medical history includes chronic AFib, on warfarin; valvular heart disease including rheumatic mitral stenosis, tricuspid regurgitation and pulmonary hypertension with mild aortic stenosis and normal LV function on the most recent echocardiogram. There is a history of congestive heart failure, hypertension, hyperlipidemia, cerebrovascular disease, bladder cancer. She is a former smoker. She has residual aphasia. There is no history of myocardial infarction, angina, diabetes or gout. MEDICATIONS: Include Colace, warfarin, Lipitor, Norvasc, lisinopril, Percocet. ALLERGIES: THERE ARE NO MEDICATION ALLERGIES REPORTED. FAMILY HISTORY: Noncontributory. SOCIAL HISTORY: She lives at home. She is ambulatory. She no longer smokes. She does not drink alcohol. REVIEW OF SYSTEMS: Ten-point review of systems is otherwise unremarkable except as noted above. PHYSICAL EXAMINATION: GENERAL: She is an elderly woman with BiPAP mask, lying in bed on telemetry, in no acute distress. VITAL SIGNS: Notable for atrial fibrillation 105-123 beats per minute. She is afebrile, blood pressure 133/72, respirations 18-24, O2 sat 90-92% on BiPAP mask with 50% FiO2. HEENT: Reveals neck vein distention. No carotid bruit. Mucous membranes moist. No thyromegaly. Conjunctivae pink. NECK: Supple. LUNGS: Lung fall, scattered rhonchi. HEART: Examination of the heart revealed an irregular rhythm. Normal first and second heart sounds. Systolic murmur along the left sternal border. Soft diastolic rumble. ABDOMEN: Soft. Bowel sounds present. No mass, organomegaly, tenderness, rebound or guarding. No CVA tenderness. No palpable aortic aneurysm. EXTREMITIES: Revealed no cyanosis or clubbing. There is mild lower extremity edema. NEUROLOGIC: She was awake and alert. There was expressive aphasia. PSYCHIATRIC: Normal as to mood and affect. SKIN: Warm and dry. No rash or cellulitis. LABORATORY DATA AND IMAGING: A portable chest x-ray reveals vascular congestion, bibasilar infiltrates with small effusions. The EKG demonstrates atrial fibrillation, ventricular rate 109, poor R-wave progression, rightward axis, nonspecific ST-wave changes. No change from a prior EKG. Lower extremity venous Doppler revealed no evidence of DVT. White count is normal this morning, hemoglobin 11, hematocrit 35.8, platelet count normal. PT 42.1, INR 3.57, PTT 39.1. Blood gases are noted. Electrolytes notable for a potassium of 5.3, repeat 4.9. BUN 25, creatinine 1, blood sugar 108, magnesium normal. Mild elevation of LFTs noted. CK 55, troponin 0.02, BNP 7840. Urinalysis abnormal as noted. IMPRESSION: Shabnam Graff is an 87-year-old woman, readmitted with shortness of breath and also predominantly low back pain. She was treated with Lasix and bilevel positive airway pressure mask. She has improved. Her urine output is recorded as 1150 mL. I will review her old records. She will have a pulmonary evaluation. I will continue medications such as lisinopril, amlodipine, Lipitor. We will hold warfarin and monitor INRs daily. She was cultured. She is getting antibiotics. A procalcitonin level is ordered. I will put her on a dose of daily Lasix. She can be out of bed to a chair. We will monitor stool for occult blood. We will monitor inputs and outputs. She is actively being considered for a Watchman device. I will follow along with you. I will make additional recommendations based on her clinical course. Misha Easley MD [facility]
--- NOTE | 2017-08-29 16:22 | CON ---
DATE: 08/29/2017 PULMONARY CONSULTATION REASON FOR CONSULTATION: Shortness of breath. REFERRING PHYSICIAN: Rock Myers MD HISTORY OF PRESENT ILLNESS: History is obtained via extensive discussion with the telemetry nurse. I have also reviewed the chart at length and discussed the case with the patient at length. The patient is a chronically ill 87-year-old female, with past medical history significant for coronary artery disease, hypertension, atrial fibrillation (on Coumadin), mitral stenosis, congestive heart failure, cerebrovascular accident, who presents to [facility] with a 3-day history of worsening shortness of breath at rest and dyspnea on exertion. There is no history of cough or sputum production. There is no history of chest pain, coughing up of blood, or chest pain - made worse with deep respirations. There is no history of temperatures, chills or infectious exposure. There is no history of night sweats, weight loss or appetite change prior to the above events. No history of calf pains. No history of syncope or diaphoresis. No history of recent travel or trauma. REVIEW OF SYSTEMS: No history of nausea, vomiting or diarrhea. No acute urinary symptoms. No new neurologic or musculoskeletal complaints. Rest of the review of systems is negative. ALLERGIES: No known allergies. SOCIAL HISTORY: Positive for former tobacco usage. No alcohol. FAMILY HISTORY: No inheritable diseases. HOME MEDICATIONS: Include Coumadin, Lipitor, Zestril, Colace, Norvasc. PHYSICAL EXAMINATION GENERAL: The patient appears comfortable this morning. She is not short of breath at rest. She is on BiPAP. VITAL SIGNS: Temperature is 97.7, pulse 105, respirations 18/20, blood pressure 133/72. Oxygen saturation on BiPAP is 93%. HEENT: Normocephalic and atraumatic. No JVD. CARDIOVASCULAR: Systolic ejection murmur at the lower left sternal border. Positive S3 gallop. LUNGS: Decreased breath sounds with crackles at both bases. No rhonchi. No wheezing. EXTREMITIES: Positive for mild edema. No cyanosis, no clubbing. Calves are nontender to palpation. GI: Abdomen is soft, nontender and nondistended. Bowel sounds are positive. SKIN: No acute rash. NEUROLOGIC: Limited at the present time. PERTINENT LABORATORY DATA: Chest x-ray was done yesterday and reviewed. There is moderately severe pulmonary vascular congestion noted. There are also small bilateral pleural effusions noted. In addition, there may be an infiltrate at the right base (hard to tell). CBC: White count 13.5, hemoglobin 11.7, hematocrit 37, platelets of 453,000. INR 3.57. Complete metabolic profile: Potassium 5.3, BUN 25, glucose 153, ALT 74, LDH 732. B-type natriuretic peptide 7840. Rest of the metabolic profiles within normal limits. IMPRESSION: 1. Acute congestive heart failure. 2. Respiratory insufficiency. 3. Rule out pneumonia, right lower lobe. 4. Mild anemia. 5. Atrial fibrillation. PLAN: Again, I did discuss the case with the night nurse at length. I have also discussed the case with the patient at length and reviewed the chart at length. The patient presents to [facility] with a 3-day history of worsening shortness of breath at rest, and dyspnea on exertion. She offers no other pulmonary symptoms. I did review the chest x-ray as above. There is moderately severe congestive heart failure seen, with bilateral pleural effusions. There also may be an infiltrate at the right base (hard to tell). I have also reviewed the laboratory data. A significant rise in the B-type natriuretic peptide is noted. I did give a stat dose of Lasix this morning. The patient remains on BiPAP. A mild leukocytosis is also noted. Cultures have been ordered and will be analyzed when feasible. I will start the patient on antibiotic therapy this morning. I will also order a procalcitonin level - to help us distinguish whether we are dealing with an acute pneumonia or not. Cardiology evaluation with Dr. Easley has also been ordered. The patient does feel better this morning and is clinically improved - compared to yesterday. Additional pulmonary intervention will be based on the clinical status of the patient. I will discuss the above with Dr. Myers. Thank you very much for this pulmonary consultation. Deandre Flaherty MD [facility]
--- NOTE | 2017-08-29 19:24 | HP ---
DATE OF EXAM: CHIEF COMPLAINT AND HISTORY OF PRESENT ILLNESS: This is an 87-year-old female who has come into the hospital complaining of lower back pain. She is also complaining of shortness of breath. The patient has a past medical history of pulmonary hypertension. She had CVA recently and was discharged about three weeks ago. She states that her breathing is better. She has no fevers or chills. No shortness of breath at this point. She is feeling better. She said the back pain was intermittent, it was about 2 to 3 out of 10. She had no complaints of numbness or tingling. No dysuria or frequency. REVIEW OF SYSTEMS: All other review of symptoms are within normal limits except as mentioned. ALLERGIES: NO KNOWN DRUG ALLERGIES. HOME MEDICATIONS: Lipitor, Norvasc, Coumadin. PAST MEDICAL HISTORY: Include mitral stenosis, hypertension, bladder CA with chemotherapy, coronary artery disease with stent. SOCIAL HISTORY: The patient was a smoker. She smoked about half a pack per day in the past, but she quit. FAMILY HISTORY: Noncontributory. PHYSICAL EXAMINATION: VITAL SIGNS: Temperature is 97.7, pulse of 105, blood pressure 150/82, respirations 20, O2 saturation 90%, height is 5 feet 1 inch, and weight is 140 pounds, BMI is 26.5. GENERAL: The patient lying in bed, uncomfortable, and in no acute distress. HEENT: Atraumatic and normocephalic. Anicteric sclerae. Moist mucosa. [place] conjunctivae. No oral lesions. NECK: No JVD, anterior and posterior adenopathy, thyromegaly, or bruits. CARDIOVASCULAR: S1 and S2 regular. No murmur, rubs, or gallop. LUNGS: Clear to auscultation bilaterally. No wheezes, rales, or rhonchi. ABDOMEN: Bowel sounds are positive. Soft, nontender and nondistended. No hepatosplenomegaly. No rebound and no guarding. EXTREMITIES: No cyanosis, clubbing, or edema. NEUROLOGIC: No facial asymmetry. Tongue is midline. No uvula deviation. Power is 5/5 upper extremity and lower extremity. Sensation intact in upper extremity and lower extremity. PSYCHIATRIC: She is awake, alert and oriented x3. No anxiety or depression. She has normal affect. GENITOURINARY: No CVA tenderness. VASCULAR: 2+ pulses in the carotid pulses and pedal pulses. SKIN: No erythema or nodules SPINE: Shows normal curvature. LABORATORY DATA: White count of 13.5, hemoglobin is 11.7, platelet count is 453. INR is 3.57. Chemistry: She has a creatinine of 0.9, BNP is 7840. Troponin is 0.02. Blood is small, nitrites are negative, esterase is small. DIAGNOSTIC DATA: Chest x-ray shows vascular congestion with bibasilar infiltrates. EKG shows QTc of 430, heart rate of 109, it shows atrial fibrillation with rapid ventricular response. Lower extremity Doppler shows no evidence of DVT. Pulse ox in the ER was 86% on room air. ASSESSMENT: 1. Acute congestive heart failure exacerbation secondary to diastolic dysfunction. 2. Hypoxia with the O2 saturation of 86% on room air. 3. Atrial fibrillation on Coumadin. 4. Mitral stenosis. 5. History of bladder cancer. 6. Coronary artery disease with stent. 7. Dyslipidemia. 8. Hypertension. PLAN: The patient is currently comfortable. She is feeling well compared to when she first came in to the ER. She was hypoxic. Her BNP is elevated. Her chest x-ray is abnormal showing pulmonary congestion. She is having an acute CHF exacerbation. The patient is going to be seen by Dr. Flaherty and Dr. Easley from Pulmonary and Cardiology. The patient is on Colace for constipation. She is on Lipitor for dyslipidemia. She is on Norvasc for hypertension. She is on lisinopril. She was given IV antibiotics. Overall, the patient will be on Lasix twice a day for diuresis. The patient is on BiPAP and on heart-healthy diet, looks like she need physical therapy and will see if she qualifies for TCU. Rock Myers MD
[2017-08-30] MEDS: Metoprolol 1 mg/ml Inj IV SCH ×2 (01:00→09:41)
[2017-08-30 07:56] LABS: INR 2.56 (0.93-1.08)
[2017-08-30] MEDS ORDERED: Metoprolol Succinate 50 mg XL Tab PO SCH (08:00)
[2017-08-30] MEDS ORDERED: Metoprolol Succinate 100 mg XL Tab PO SCH (08:00)
[2017-08-30 08:06] LABS: CALCIUM 8.5 mg/dL (8.4-10.5)
--- NOTE | 2017-08-30 08:45 | PN ---
DATE: 08/30/2017 PULMONARY NOTE SUBJECTIVE: The patient appears more comfortable this morning. She is not short of breath at rest. PHYSICAL EXAMINATION VITAL SIGNS: Temperature is 97.8, pulse is 75, respirations 18/20, blood pressure 117/69. Oxygen saturation on VentiMask is 97%. HEENT: Normocephalic, atraumatic. No JVD. CARDIOVASCULAR: Systolic ejection murmur at the lower left sternal border. Positive S3 gallop. LUNGS: Decreased breath sounds at the bases with crackles. No rhonchi. No wheezing. EXTREMITIES: Positive for mild edema. No cyanosis or clubbing. Calves are nontender to palpation. GI: Abdomen is soft, nontender and nondistended. Bowel sounds are positive. SKIN: No acute rash. NEUROLOGIC: Limited at the present time. IMPRESSION: 1. Acute congestive heart failure. 2. Respiratory insufficiency. 3. Rule out pneumonia, right lower lobe. 4. Mild anemia. 5. Atrial fibrillation. PLAN: The patient appears much more comfortable this morning. She is not short of breath at rest. She does state to feeling much better overall. I did discuss the case with the night nurse at length. The night nurse stated that the patient is doing well overall. On physical exam, there is no significant bronchospasm noted. In addition, there is a decrease in the alveolar-arterial gradient. I will try transitioning the patient to nasal cannula this morning and check oxygen saturations closely. I did discuss these orders with the nurse. I would continue with the treatment for congestive heart failure as per Cardiology. The patient remains on intravenous Lasix - agreed. Dr. Moya (Infectious Disease) has also been called on the case. The leukocytosis has resolved. The procalcitonin is negative. Clinical status of the patient is definitely improved - compared to the initial presentation. However, her future status/prognosis does remain guarded. I will discuss the above with Dr. Myers. Deandre Flaherty MD [facility]
[2017-08-30] MEDS: Azithromycin 500MG/NS 250ml 500 MG/250 ML BAG IVPB SCH (09:26)
--- NOTE | 2017-08-30 09:27 | PN ---
DATE: 08/30/2017 SUBJECTIVE: The patient says she feels well. Her breathing is better. She has no complaints of any chest pain. No shortness of breath. No headaches. PHYSICAL EXAMINATION: VITAL SIGNS: Temperature is 97.8, pulse is 75, blood pressure is 117/69, respirations 20, O2 saturation 92%. GENERAL: The patient is lying in bed, flat, comfortable. HEENT: No oral lesion. Anicteric sclerae. Moist mucosa. NECK: No JVD, adenopathy, or thyromegaly. CARDIOVASCULAR: S1 and S2, regular. No murmurs, rubs, or gallops. LUNGS: Clear to auscultation bilaterally. No wheeze, rales, or rhonchi. ABDOMEN: Bowel sounds are positive, soft, nontender and nondistended. EXTREMITIES: No cyanosis, clubbing or edema. ASSESSMENT: 1. Acute congestive heart failure secondary to diastolic dysfunction. 2. Hypoxia. 3. Atrial fibrillation, on Coumadin. 4. Mitral stenosis. 5. Coronary artery disease with stent. 6. Dyslipidemia. 7. Hypertension. 8. History of bladder cancer. 9. Urinary tract infection secondary to gram-negative rods. 10. Sepsis secondary to urinary tract infection. PLAN: The patient is on Colace. She is going to continue on Lipitor for dyslipidemia. She is on metoprolol. I have increased the patient's p.o. Toprol and I will discontinue the patient's IV Toprol. The patient is on Rocephin for antibiotic. She is on azithromycin. She also has urine culture that shows gram-negative rods. Rock Myers MD
[2017-08-30] MEDS: cefTRIAXone 1 gm 1 GM/100 ML BAG IVPB SCH (11:10)
[2017-08-30 11:38] LABS: FREE T4 1.3 ng/dL (0.78-2.19)
--- NOTE | 2017-08-30 16:18 | CP.PCM.CON ---
History of Present Illness - History of Present Illness History of Present Illness: 87 year old female with PMH of CAD, dyslipidemia, HTN, bladder CA, atrial fibrillation on anticoagulation, mitral stenosis, CVA came in to [facility] because of worsening shortness of breath and dyspnea on exertion for 1-2 days with dry cough initially but now the patient does not have cough anymore. She initially was diagnosed with probable acute CHF but on CXR the right base showed possible infiltrates as well. Currently patient is feeling better, no nausea or vomiting , no chest pain, breathing better, no sore throat, no rhinorrhea, no dysphagia, no headache or dizziness, no abdominal pain, no diarrhea, no dysuria. Infectious diseases consult is requested to further evaluate and manage. Review of Systems - Review of Systems All systems: reviewed and no additional remarkable complaints except (as per HPI ) Past Patient History - Infectious Disease Hx of Infectious Diseases: None - Past Social History Smoking Status: Former Smoker - CARDIAC Hx Cardiac Disorders: Yes Hx Hypertension: Yes - PULMONARY Hx Respiratory Disorders: No - NEUROLOGICAL HX Cerebrovascular Accident: Yes - HEENT Hx HEENT Problems: No - RENAL Hx Chronic Kidney Disease: No - ENDOCRINE/METABOLIC Hx Endocrine Disorders: No - HEMATOLOGICAL/ONCOLOGICAL Hx Blood Disorders: Yes Hx Cancer: Yes (Bladder CA - long time ago) Hx Chemotherapy: Yes - INTEGUMENTARY Hx Dermatological Problems: Yes Other/Comment: skin discolorations - MUSCULOSKELETAL/RHEUMATOLOGICAL Hx Musculoskeletal Disorders: Yes Hx Back Pain: Yes Hx Falls: No - GASTROINTESTINAL Hx Gastrointestinal Disorders: Yes Hx Gall Bladder Disease: Yes - GENITOURINARY/GYNECOLOGICAL Hx Genitourinary Disorders: Yes Other/Comment: bladder CA - PSYCHIATRIC Hx Psychophysiologic Disorder: No Hx Substance Use: No - SURGICAL HISTORY Hx Surgeries: Yes Hx Cardiac Catheterization: Yes Hx Cholecystectomy: Yes Hx Coronary Stent: Yes (x2) - ANESTHESIA Hx Anesthesia: Yes Hx Anesthesia Reactions: No Hx Malignant Hyperthermia: No Meds Allergies/Adverse Reactions: Allergies Allergy/AdvReac Type Severity Reaction Status Date / Time No Known Allergies Allergy Verified 08/02/17 17:02 - Medications Medications: Current Medications Amlodipine Besylate (Norvasc) 10 mg PO DAILY [facility] Last Admin: 08/30/17 09:24 Dose: 10 mg Atorvastatin Calcium (Lipitor) 40 mg PO HS [facility] Last Admin: 08/28/17 21:14 Dose: 40 mg Azithromycin (Zithromax) 500 mg PO DAILY [facility] Docusate Sodium (Colace) 100 mg PO TID [facility] Last Admin: 08/30/17 13:06 Dose: Not Given Furosemide (Lasix) 40 mg IVP Q12 [facility] Last Admin: 08/30/17 09:25 Dose: 40 mg Ceftriaxone Sodium (Rocephin 1 Gram Ivpb) 1 gm in 100 mls @ 100 mls/hr IVPB DAILY [facility] PRN Reason: Protocol Last Admin: 08/30/17 11:10 Dose: 100 mls/hr Lisinopril (Zestril) 20 mg PO DAILY [facility] Last Admin: 08/30/17 09:24 Dose: 20 mg Physical Exam - Constitutional Appears: Non-toxic, Chronically Ill - Head Exam Head Exam: NORMAL INSPECTION - ENT Exam ENT Exam: Mucous Membranes Moist - Neck Exam Neck exam: Negative for: Meningismus - Respiratory Exam Respiratory Exam: Decreased Breath Sounds (at the bases) - Cardiovascular Exam Cardiovascular Exam: +S1, +S2 - GI/Abdominal Exam GI & Abdominal Exam: Soft. absent: Tenderness Results - Vital Signs Recent Vital Signs: Last Vital Signs Temp 98.4 F 08/30/17 12:00 Pulse 114 H 08/30/17 14:00 Resp 18 08/30/17 12:00 BP 96/62 L 08/30/17 12:00 Pulse Ox 92 L 08/30/17 06:00 - Labs Result Diagrams: 08/29/17 06:30 08/30/17 07:00 Labs: Laboratory Results - last 24 hr 08/30/17 08/30/17 08/30/17 07:00 07:00 07:00 PT 30.0 H INR 2.56 H Sodium 140 Potassium 4.6 Chloride 98 Carbon Dioxide 33 Anion Gap 14 BUN 27 H Creatinine 1.1 Est GFR ( Amer) 57 Est GFR (Non-Af Amer) 47 Random Glucose 100 Calcium 8.5 Free T4 1.30 TSH 3rd Generation 2.57 Assessment & Plan - Assessment and Plan (Free Text) Plan: Assessment Systemic Inflammatory response syndrome, R/O due to right lower lobe community- acquired pneumonia R/O UTI with E. coli, on top of acute on chronic CHF CAD dyslipidemia HTN bladder CA atrial fibrillation on anticoagulation mitral stenosis CVA Plan Continue Rocephin and Zithromax day 2 and will target 5-7 days of therapy urine cx showing E. coli, blood cx negative will monitor clinically
--- NOTE | 2017-08-30 20:50 | CP.PCM.PN ---
Subjective - Date & Time of Evaluation Date of Evaluation: 08/30/17 Time of Evaluation: 20:46 - Subjective Subjective: Patient was seen at bedside. She complained of headache, mild, frontal, has no other complaints. Requests one tylenol. States that she takes one tylenol for headache. Denies nausea, vomiting, dizziness, paraesthesia, weakness. Medical record was reviewed. This 87 year old woman was admitted lower back pain, sob,acute CHF with diastolic dysfunction. Has PMH of pulmonary hypertension, HTN,bladder cancer, CAD, coronary stent placement , S/P chemotherapy. Objective - Vital Signs/Intake and Output Vital Signs (last 24 hours): Temp Pulse Resp BP Pulse Ox 98.7 F 126 H 18 101/55 L 92 L 08/30/17 17:43 08/30/17 18:00 08/30/17 17:43 08/30/17 17:43 08/30/17 06:00 Intake and Output: 08/30/17 08/31/17 18:59 06:59 Intake Total 360 Output Total 600 Balance -240 - Medications Medications: Current Medications Amlodipine Besylate (Norvasc) 10 mg PO DAILY [facility] Last Admin: 08/30/17 09:24 Dose: 10 mg Atorvastatin Calcium (Lipitor) 40 mg PO HS [facility] Last Admin: 08/28/17 21:14 Dose: 40 mg Azithromycin (Zithromax) 500 mg PO DAILY [facility] Docusate Sodium (Colace) 100 mg PO TID [facility] Last Admin: 08/30/17 13:06 Dose: Not Given Furosemide (Lasix) 40 mg IVP Q12 [facility] Last Admin: 08/30/17 09:25 Dose: 40 mg Ceftriaxone Sodium (Rocephin 1 Gram Ivpb) 1 gm in 100 mls @ 100 mls/hr IVPB DAILY [facility] PRN Reason: Protocol Last Admin: 08/30/17 11:10 Dose: 100 mls/hr Lisinopril (Zestril) 20 mg PO DAILY [facility] Last Admin: 08/30/17 09:24 Dose: 20 mg Metoprolol Tartrate (Lopressor) 25 mg PO Q6H [facility] - Labs Labs: 08/29/17 06:30 08/30/17 07:00 PT 30.0 SECONDS (9.4-12.5) H 08/30/17 07:00 INR 2.56 (0.93-1.08) H 08/30/17 07:00 APTT 39.1 Seconds (25.1-36.5) H 08/28/17 09:20 Micro Results 08/28/17 10:00 Urine,Clean Catch Urine Culture - Final Escherichia Coli 08/28/17 09:20 Blood-Venous Blood Culture - Preliminary NO GROWTH AFTER 48 HOURS 08/28/17 09:20 Blood-Venous Blood Culture - Preliminary NO GROWTH AFTER 48 HOURS Most Recent Lab Values WBC 10.4 10^3/ul (4.5-11.0) D 08/29/17 06:30 RBC 4.29 10^6/uL (3.5-6.1) 08/29/17 06:30 Hgb 11.0 g/dL (12.0-16.0) L 08/29/17 06:30 Hct 35.8 % (36.0-48.0) L 08/29/17 06:30 MCV 83.4 fl (80.0-105.0) 08/29/17 06:30 MCH 25.6 pg (25.0-35.0) 08/29/17 06:30 MCHC 30.7 g/dl (31.0-37.0) L 08/29/17 06:30 RDW 15.2 % (11.5-14.5) H 08/29/17 06:30 Plt Count 414 10^3/uL (120.0-450.0) 08/29/17 06:30 MPV 8.8 fl (7.0-11.0) 08/29/17 06:30 Gran % 81.4 % (50.0-68.0) H 08/28/17 09:20 Lymph % (Auto) 5.9 % (22.0-35.0) L 08/28/17 09:20 [place] % (Auto) 10.5 % (1.0-6.0) H 08/28/17 09:20 Eos % (Auto) 2.1 % (1.5-5.0) 08/28/17 09:20 Baso % (Auto) 0.1 % (0.0-3.0) 08/28/17 09:20 Gran # 11.02 (1.4-6.5) H 08/28/17 09:20 Lymph # (Auto) 0.8 (1.2-3.4) L 08/28/17 09:20 [place] # (Auto) 1.4 (0.1-0.6) H 08/28/17 09:20 Eos # (Auto) 0.3 (0.0-0.7) 08/28/17 09:20 Baso # (Auto) 0.02 K/mm3 (0.0-2.0) 08/28/17 09:20 PT 30.0 SECONDS (9.4-12.5) H 08/30/17 07:00 INR 2.56 (0.93-1.08) H 08/30/17 07:00 APTT 39.1 Seconds (25.1-36.5) H 08/28/17 09:20 pO2 42 mm/Hg (30-55) 08/28/17 13:30 VBG pH 7.40 (7.32-7.43) 08/28/17 13:30 VBG pCO2 45.0 (40-60) 08/28/17 13:30 VBG HCO3 27.9 mmol/l (21-28) 08/28/17 13:30 VBG Total CO2 29.3 mmol.L (22-28) H 08/28/17 13:30 VBG O2 Sat (Calc) 81.8 % (40-65) H 08/28/17 13:30 VBG Base Excess 2.5 mmol/L (0.0-2.0) H 08/28/17 13:30 VBG Potassium 4.4 mmol/L (3.6-5.2) 08/28/17 13:30 Sodium 135.0 mmol/L (132-148) 08/28/17 13:30 Chloride 103.0 mmol/L (98-107) 08/28/17 13:30 Glucose 160 mg/dl (65-105) H 08/28/17 13:30 Lactate 1.4 mmol/L (0.7-2.1) 08/28/17 13:30 FiO2 21.0 % 08/28/17 13:30 Sodium 140 mmol/L (132-148) 08/30/17 07:00 Potassium 4.6 mmol/L (3.6-5.0) 08/30/17 07:00 Chloride 98 mmol/L (98-107) 08/30/17 07:00 Carbon Dioxide 33 mmol/L (21-33) 08/30/17 07:00 Anion Gap 14 (10-20) 08/30/17 07:00 BUN 27 mg/dL (7-21) H 08/30/17 07:00 Creatinine 1.1 mg/dl (0.7-1.2) 08/30/17 07:00 Est GFR ( Amer) 57 08/30/17 07:00 Est GFR (Non-Af Amer) 47 08/30/17 07:00 Random Glucose 100 mg/dL (70-110) 08/30/17 07:00 Calcium 8.5 mg/dL (8.4-10.5) 08/30/17 07:00 Phosphorus 3.2 mg/dL (2.5-4.5) 08/29/17 06:30 Magnesium 1.7 mg/dL (1.7-2.2) 08/29/17 06:30 Total Bilirubin 0.8 mg/dL (0.2-1.3) 08/29/17 06:30 AST 42 U/L (14-36) H D 08/29/17 06:30 ALT 59 U/L (7-56) H 08/29/17 06:30 Alkaline Phosphatase 81 U/L (38-126) 08/29/17 06:30 Lactate Dehydrogenase 732 U/L (333-699) H 08/28/17 09:20 Total Creatine Kinase 55 U/L (35-230) 08/28/17 09:20 Troponin I 0.02 ng/mL 08/28/17 09:20 NT-Pro-B Natriuret Pep 7840 pg/mL (0-450) H 08/28/17 09:20 Total Protein 6.5 g/dL (5.8-8.3) 08/29/17 06:30 Albumin 3.4 g/dL (3.0-4.8) 08/29/17 06:30 Globulin 3.1 gm/dL 08/29/17 06:30 Albumin/Globulin Ratio 1.1 (1.1-1.8) 08/29/17 06:30 Procalcitonin < 0.05 NG/ML (0.19-0.49) L 08/29/17 06:30 Free T4 1.30 ng/dL (0.78-2.19) 08/30/17 07:00 TSH 3rd Generation 2.57 mIU/mL (0.46-4.68) 08/30/17 07:00 Venous Blood Potassium 4.4 mmol/L (3.6-5.2) 08/28/17 13:30 Urine Color Dark yellow (YELLOW) 08/28/17 10:00 Urine Appearance Sl cloudy (CLEAR) 08/28/17 10:00 Urine pH 6.0 (4.7-8.0) 08/28/17 10:00 Ur Specific [place] 1.025 (1.005-1.035) 08/28/17 10:00 Urine Protein 30 mg/dL (<30 mg/dL) H 08/28/17 10:00 Urine Glucose (UA) Negative mg/dL (NEGATIVE) 08/28/17 10:00 Urine Ketones Negative mg/dL (NEGATIVE) 08/28/17 10:00 Urine Blood Small (NEGATIVE) H 08/28/17 10:00 Urine Nitrate Negative (NEGATIVE) 08/28/17 10:00 Urine Bilirubin Negative (NEGATIVE) 08/28/17 10:00 Urine Urobilinogen 0.2 E.U./dL (<1 E.U./dL) 08/28/17 10:00 Ur Leukocyte Esterase Small [place]/uL (NEGATIVE) H 08/28/17 10:00 Urine RBC 5 - 10 /hpf (0-2) 08/28/17 10:00 Urine WBC 5 - 10 /hpf (0-6) 08/28/17 10:00 Ur Epithelial Cells 3 - 4 /hpf (0-5) 08/28/17 10:00 Urine Bacteria Few (NEG) 08/28/17 10:00 - Constitutional Appears: Well, No Acute Distress - Head Exam Head Exam: ATRAUMATIC, NORMAL INSPECTION, NORMOCEPHALIC - Eye Exam Eye Exam: Normal appearance - ENT Exam ENT Exam: Normal External Ear Exam - Neck Exam Neck Exam: Normal Inspection - Respiratory Exam Respiratory Exam: NORMAL BREATHING PATTERN - Cardiovascular Exam Cardiovascular Exam: absent: JVD - GI/Abdominal Exam GI & Abdominal Exam: absent: Distended - Rectal Exam Rectal Exam: Deferred - Exam Additional comments: Deferred. - Extremities Exam Extremities Exam: Normal Inspection - Back Exam Back Exam: NORMAL INSPECTION - Neurological Exam Neurological Exam: Alert, Awake, Oriented x3 - Psychiatric Exam Psychiatric exam: Normal Affect, Normal Mood - Skin Skin Exam: Normal Color Assessment and Plan - Assessment and Plan (Free Text) Assessment: Head ache. CHF. CAD. HTN. HLD. Atrial fibrillation. Plan: Tylenol 325 mg PO x 1. Continue present management as per PMD.
--- NOTE | 2017-08-30 22:52 | PN ---
DATE: 08/30/2017 SUBJECTIVE: The patient is seen sitting in a chair on telemetry. She feels somewhat better. Her cough is improved. Her back pain is improved as well. She remains in atrial fibrillation with a moderate ventricular response. CURRENT MEDICATIONS: Include Lasix 40 mg IV b.i.d., Lipitor 40 mg daily, Norvasc 10 mg daily, Zestril 20 mg daily, Zithromax, and Rocephin. PHYSICAL EXAMINATION: GENERAL: She is a very elderly woman, appears comfortable at rest. VITAL SIGNS: Blood pressure is 106/50 with a pulse of 110, in atrial fibrillation; respirations are 16. She is afebrile. HEENT: No JVD. CHEST: Bilateral scattered rhonchi. HEART: PMI displaced laterally with systolic murmur at the lower left sternal border and apex. ABDOMEN: Soft and nontender with normoactive bowel sounds. EXTREMITIES: No edema. DIAGNOSTIC DATA: Potassium 4.6, BUN and creatinine 27 and 1.1. INR is 2.56. IMPRESSION: 1. Possible right lower lobe pneumonia, clinically improved. 2. Chronic congestive heart failure, diastolic, secondary to valvular heart disease. 3. Severe functional mitral stenosis. 4. Coronary artery disease, status post multivessel percutaneous coronary intervention. 5. Chronic atrial fibrillation with increased rate. RECOMMENDATIONS: Metoprolol has been on hold but will be resumed. Rate control therapy is extremely important given her severe functional mitral stenosis. Maintenance of adequate heart rate to allow for adequate diastolic filling will be helpful in improving her symptomatic dyspnea. Continued anticoagulation is advised given her recent TIA. Antibiotics and proper diuretic therapy as appropriate should continue. If she is unable to tolerate adequate heart rate control therapy with the beta kuldeep due to borderline hypertension, initiation of digoxin therapy will be entertained as well. We will continue to follow and make further recommendations as appropriate. Jose Blancas MD
--- NOTE | 2017-08-31 07:03 | PN ---
DATE: 08/31/2017 PULMONARY NOTE SUBJECTIVE: The patient appears comfortable this morning. She is not short of breath at rest. She is currently on nasal cannula. PHYSICAL EXAMINATION: VITAL SIGNS: Temperature is 98.8, pulse 105, respirations 18/20, blood pressure 103/73. Oxygen saturation on nasal cannula is 93%. HEENT: Normocephalic, atraumatic. NECK: No JVD. CARDIOVASCULAR: Systolic ejection murmur at the lower left sternal border. Positive S3 gallop. LUNGS: Decreased breath sounds at the bases with crackles. No rhonchi. No wheezing. EXTREMITIES: Positive for mild edema. No cyanosis or clubbing. Calves are nontender to palpation. GI: Abdomen is soft, nontender, nondistended. Bowel sounds are positive. SKIN: No acute rash. NEUROLOGIC: Exam limited at the present time. IMPRESSION: 1. Acute congestive heart failure. 2. Respiratory insufficiency. 3. Rule out pneumonia, right lower lobe. 4. Mild anemia. 5. Atrial fibrillation. Plan: Patient appears comfortable this morning. She is not short of breath at rest. She does state to feeling much, much better overall. I did discuss the case with the night nurse at length. The night nurse stated that the patient had a very good night, and is now on nasal cannula. She does have an acceptable oxygen saturation on the nasal cannula. I did inform the nurse, that I would like the patient to use her BiPAP at night. I did give settings. On physical exam, there is no significant bronchospasm noted. In addition, the alveolar-arterial gradient is much less. I would continue with the treatment for congestive heart failure as per Cardiology. Inputs are noted. The patient remains on intravenous Lasix. The patient also remains in rapid atrial fibrillation. Repeat a.m. labs are pending. I have also ordered a repeat chest x-ray-for today-for comparison. I will check that when feasible. Clinical status of the patient is much improved-compared to the initial presentation. However, her future status/prognosis does remain guarded. I will discuss the above with Dr. Myers. Deandre Flaherty MD [facility] # [id number] MTDD
[2017-08-31 07:19] LABS: INR 1.96 (0.93-1.08); PROTHROMBIN TIME 22.9 SECONDS (9.4-12.5)
--- NOTE | 2017-08-31 08:25 | CP.PCM.PN ---
Subjective - Date & Time of Evaluation Date of Evaluation: 08/31/17 Time of Evaluation: 07:00 - Subjective Subjective: Stable on 2R. No CP or SOB. She feels better. V/S noted. AF 120's PE: Lungs: rhonchi Cor.: irreg, S1S2 Abd.: soft Ext.: no edema Neuro.: alert I/O = 600/1200 Labs noted: INR - 1.96, Cr.= 1.1, K+= 4.6 BC X 2 NG at 48 hrs. Urine + E. coli Objective - Vital Signs/Intake and Output Vital Signs (last 24 hours): Temp Pulse Resp BP Pulse Ox 98.8 F 114 H 20 103/73 92 L 08/31/17 06:00 08/31/17 06:00 08/31/17 06:00 08/31/17 06:00 08/31/17 06:00 Intake and Output: 08/31/17 08/31/17 06:59 18:59 Intake Total 240 Output Total 600 Balance -360 - Medications Medications: Current Medications Amlodipine Besylate (Norvasc) 10 mg PO DAILY [facility] Last Admin: 08/30/17 09:24 Dose: 10 mg Atorvastatin Calcium (Lipitor) 40 mg PO HS [facility] Last Admin: 08/30/17 22:23 Dose: 40 mg Azithromycin (Zithromax) 500 mg PO DAILY [facility] Docusate Sodium (Colace) 100 mg PO TID [facility] Last Admin: 08/30/17 13:06 Dose: Not Given Furosemide (Lasix) 40 mg IVP Q12 [facility] Last Admin: 08/30/17 22:23 Dose: 40 mg Ceftriaxone Sodium (Rocephin 1 Gram Ivpb) 1 gm in 100 mls @ 100 mls/hr IVPB DAILY [facility] PRN Reason: Protocol Last Admin: 08/30/17 11:10 Dose: 100 mls/hr Lisinopril (Zestril) 20 mg PO DAILY [facility] Last Admin: 08/30/17 09:24 Dose: 20 mg Metoprolol Tartrate (Lopressor) 50 mg PO TID [facility] Warfarin Sodium (Coumadin) 2 mg PO ONCE ONE PRN Reason: Protocol Stop: 08/31/17 18:01 - Labs Labs: 08/29/17 06:30 08/30/17 07:00 PT 22.9 SECONDS (9.4-12.5) H 08/31/17 06:00 INR 1.96 (0.93-1.08) H 08/31/17 06:00 APTT 39.1 Seconds (25.1-36.5) H 08/28/17 09:20 Assessment and Plan - Assessment and Plan (Free Text) Assessment: Dyspnea/Back Pain initially UTI R/O pneumonia CHF Valvular heart disease: Mild , Mod./Sev. MS, Mod. TR, Sev. PH CAD/PCIs Chronic AF HBP HLD CVA CVD Bladder cancer Former Smoker Plan: Increase metoprolol to 50 TID Warfarin 2 mg. today. Monitor INR's daily OOB as emmanuel Continue IV Lasix for now As per Pulm.: Check CXR AB as per ID Monitor: I/O, INRs, labs, sats., etc Will follow
[2017-08-31] MEDS ORDERED: Amoxicillin-Clav 500-125 mg Tab PO SCH (09:00)
--- NOTE | 2017-08-31 09:41 | RAD ---
HISTORY: follow up COMPARISON: 08/28/2017 TECHNIQUE: Chest PA and lateral FINDINGS: LUNGS: No change in CHF with vascular congestion and bibasilar infiltrates and effusions PLEURA: No significant pleural effusion identified. No pneumothorax apparent. CARDIOVASCULAR: Normal. OSSEOUS STRUCTURES: No significant abnormalities. VISUALIZED UPPER ABDOMEN: Normal. OTHER FINDINGS: None. IMPRESSION: No change in CHF with vascular congestion and bibasilar infiltrates and effusions
--- NOTE | 2017-08-31 14:26 | CT ---
PROCEDURE: CT Chest without contrast HISTORY: dyspnea COMPARISON: None. TECHNIQUE: Contiguous axial images were obtained through the chest without intravenous contrast enhancement. Sagittal and coronal reconstructions were performed. Radiation dose (DLP): 260 mGy-cm. This CT exam was performed using one or more of the following dose reduction techniques: Automated exposure control, adjustment of the mA and/or kV according to patient size, and/or use of iterative reconstruction technique. FINDINGS: LUNGS: There is bilateral lower lobe consolidation. Several nodules surrounded by a hazy ground-glass infiltrate. Findings are suggestive of inflammatory origin. The largest nodule measures 10 mm and is seen on image 29 series 3. MEDIASTINUM: Unremarkable thoracic aorta. No aneurysm. Moderate cardiomegaly. Coronary artery calcifications. Main pulmonary artery unremarkable. No vascular congestion. No lymphadenopathy. PLEURA: Moderate size bilateral pleural effusions BONES: No fracture. No destructive lesion. UPPER ABDOMEN: Grossly unremarkable. OTHER FINDINGS: None. IMPRESSION: Bilateral lower lobe consolidation and adjacent moderate size pleural effusions. Scattered poorly defined nodules in the upper lobes
[2017-08-31 17:35] VITALS: BP 114/60
[2017-08-31 18:20] VITALS: RESP 18; TEMP 97.6
[2017-08-31 18:23] VITALS: O2SAT 91
[2017-08-31 18:40] VITALS: PULSE 111
--- NOTE | 2017-08-31 21:15 | PN ---
DATE: 08/31/2017 SUBJECTIVE: Patient is in bed, in no acute distress. Patient was seen early this morning in room 371, bed 1. Awake and alert, doing well. PHYSICAL EXAMINATION: VITAL SIGNS: Temperature is 98, blood pressure is 106/50, respiratory rate of 20, heart rate of 93. HEENT: Unremarkable. NECK: Supple. LUNGS: Decreased breath sounds. HEART: Normal S1 and S2. ABDOMEN: Soft. LABORATORY DATA: Reveals a white count of 10,000, hemoglobin of 11, platelet of 414. BUN of 27, creatinine of 1.1. Procalcitonin is less than 0.05. Microbiology reveals E. coli in the urine. The blood cultures are negative. E. coli in the urine is pansensitive. Review of orders reveals the patient is on Augmentin and Zithromax. ASSESSMENT AND PLAN: This is an 87-year-old female with systemic inflammatory response syndrome due to right lower lobe community-acquired pneumonia, with Escherichia coli urinary tract infection on top of acute on chronic congestive heart failure, coronary artery disease, dyslipidemia, hypertension, bladder cancer, atrial fibrillation on anticoagulation, mitral stenosis, cerebrovascular accident, on p.o. Augmentin and p.o. Zithromax, will continue 5 to 7 days. Chaz Moya MD
--- NOTE | 2017-09-01 05:15 | DS ---
HISTORY OF PRESENT ILLNESS: This is an 87-year-old female who came into the hospital because of pneumonia. The patient was also found to have a urinary tract infection. She was treated with IV antibiotics without improvement of her symptoms. She was seen by Physical Therapy and was thought that she most likely need to go to Transitional Care Unit for rehab. She is agreeable. She has no complaints of any chest pain or shortness of breath. PHYSICAL EXAMINATION: VITAL SIGNS: Temperature is 98.8, pulse of 114, blood pressure 103/72, respiration is 20. ASSESSMENT: 1. Acute congestive heart failure secondary to diastolic dysfunction. 2. Atrial fibrillation, on Coumadin. 3. Hypoxia. 4. Mitral stenosis. 5. Coronary artery disease with stent. 6. Dyslipidemia. 7. Hypertension. 8. Urinary tract infection secondary to Escherichia coli. 9. History of bladder cancer. 10 . Sepsis secondary to urinary tract infection. 11. Gait dysfunction. PLAN: Patient is going to Transitional Care Unit today. She is being followed by Cardiology. Patient is on metoprolol for her atrial fibrillation. She is going to be on Lipitor for dyslipidemia. She is on Lasix daily. The patient is on antibiotics with Rocephin and Zithromax. She has E. coli in her urine that is sensitive to the Rocephin. She is going to have a repeat chest x-ray done this morning. INR is therapeutic yesterday at 2.56. Rock Myers MD
== END 2017-08-31 18:50 | DRG 291 ==
LOC: ED 08:35 → ERH 11:00 → 2RSO 16:55
PROVIDERS: ADMIT Internal Medicine Nephrology; ATTEND Internal Medicine Nephrology
PROC: 5A09457 Assistance with Respiratory Ventilation, 24-96 Consecutive Hours, Continuous Positive Airway Pressure (ICD-10-PCS; principal; 2017-08-28)
DX: I11.0 Hypertensive heart disease with heart failure (principal); I50.33 Acute on chronic diastolic (congestive) heart failure; J18.9 Pneumonia, unspecified organism; N39.0 Urinary tract infection, site not specified; R47.01 Aphasia; I48.2 Chronic atrial fibrillation; R09.02 Hypoxemia; I25.10 Atherosclerotic heart disease of native coronary artery without angina pectoris; E78.5 Hyperlipidemia, unspecified; I27.20 Pulmonary hypertension, unspecified; I08.3 Combined rheumatic disorders of mitral, aortic and tricuspid valves; D64.9 Anemia, unspecified; B96.20 Unspecified Escherichia coli [E. coli] as the cause of diseases classified elsewhere; Z66 Do not resuscitate; R26.9 Unspecified abnormalities of gait and mobility; Z79.01 Long term (current) use of anticoagulants; Z86.73 Personal history of transient ischemic attack (TIA), and cerebral infarction without residual deficits; Z85.51 Personal history of malignant neoplasm of bladder; Z92.21 Personal history of antineoplastic chemotherapy; Z95.5 Presence of coronary angioplasty implant and graft; Z87.891 Personal history of nicotine dependence

== ENCOUNTER 2017-08-31 18:50 | Inpatient (IN) | payer OTHER ==
[2017-08-31 19:50] VITALS: BMI 27.8
[2017-08-31] MEDS: Amoxicillin-Clav 500-125 mg Tab PO SCH (21:37)
[2017-09-01 08:10] LABS: INR 1.59 (0.93-1.08); PROTHROMBIN TIME 18.5 SECONDS (9.4-12.5)
--- NOTE | 2017-09-01 08:23 | CP.PCM.PN ---
Subjective - Date & Time of Evaluation Date of Evaluation: 09/01/17 Time of Evaluation: 07:00 - Subjective Subjective: Stable in TCU. No CP or SOB. Sats in low 90s on N/C PE: Lungs: rhonchi. Diminished BS at bases Cor: S1S2, irreg. Abd.: soft Ext.: no edema Neuro.: alert Labs 08/31 noted. INR = 1.96 CT chest noted: Bilateral basalar consolidations and moderate effusions, etc. CXR 08/31: No change in bi-basalar infiltrates and effusions Objective - Vital Signs/Intake and Output Vital Signs (last 24 hours): Temp Pulse Resp BP Pulse Ox 97.9 F 68 20 113/66 91 L 09/01/17 06:00 09/01/17 06:00 09/01/17 06:00 09/01/17 06:00 09/01/17 06:00 - Medications Medications: Current Medications Acetaminophen (Tylenol 325mg Tab) 650 mg PO Q4 PRN; Protocol PRN Reason: Headache Amlodipine Besylate (Norvasc) 10 mg PO DAILY [facility] PRN Reason: Protocol Amoxicillin/Clavulanate Potassium (Augmentin 500 Mg-125 Mg Tab) 1 tab PO Q12 [facility] PRN Reason: Protocol Last Admin: 08/31/17 21:37 Dose: 1 tab Atorvastatin Calcium (Lipitor) 40 mg PO HS [facility] PRN Reason: Protocol Last Admin: 08/31/17 21:37 Dose: 40 mg Azithromycin (Zithromax) 250 mg PO DAILY [facility] PRN Reason: Protocol Docusate Sodium (Colace) 100 mg PO TID [facility] PRN Reason: Protocol Furosemide (Lasix) 40 mg IVP Q12 [facility] PRN Reason: Protocol Last Admin: 08/31/17 21:37 Dose: Not Given Lisinopril (Zestril) 20 mg PO DAILY [facility] PRN Reason: Protocol Metoprolol Tartrate (Lopressor) 50 mg PO TID [facility] PRN Reason: Protocol Warfarin Sodium (Coumadin) 2 mg PO 1800 [facility] PRN Reason: Protocol - Labs Labs: PT 18.5 SECONDS (9.4-12.5) H 09/01/17 07:40 INR 1.59 (0.93-1.08) H 09/01/17 07:40 Assessment and Plan - Assessment and Plan (Free Text) Assessment: Dyspnea/Back Pain UTI CHF R/O pneumonia CAD/PCIs Valvular heart disease: Mild , Mod/Sev. MS, Mod. TR, Sev. PH HBP HLD CVD CVA COPD/Former Smoker Bladder cancer Plan: Warfarin 2 mg. daily. Monitor INR's Daily IV Lasix AB OOB/PT/Rehab Efforts per [facility]., ID, Dr. Myers Monitor: sats., I/O, labs, INR's Will follow.
[2017-09-01] MEDS: Amoxicillin-Clav 500-125 mg Tab PO SCH ×2 (10:05→22:11)
--- NOTE | 2017-09-01 10:10 | PN ---
DATE: 09/01/2017 PULMONARY NOTE SUBJECTIVE: The patient appears comfortable this morning. She is not short of breath at rest. PHYSICAL EXAMINATION: VITAL SIGNS: Temperature is 97.9, pulse 68, respirations 18/20, blood pressure 114/66. Oxygen saturation on nasal cannula is 91%. HEENT: Normocephalic, atraumatic. No JVD. CARDIOVASCULAR: Systolic ejection murmur at the lower left sternal border. Positive S3 gallop. LUNGS: Decreased breath sounds at the bases with crackles. No rhonchi. No wheezing. EXTREMITIES: Positive for mild edema. No cyanosis or clubbing. Calves are nontender to palpation. GI: Abdomen is soft, nontender and nondistended. Bowel sounds are positive. SKIN: No acute rash. NEUROLOGIC: Limited at the present time. PERTINENT LABORATORY DATA: CAT scan of the chest was done yesterday and reviewed. There are moderate-sized bilateral pleural effusions noted. Adjacent to the pleural effusions, there are bilateral lower lobe consolidations. The consolidation at the right base appears more significant than the left base. There are also several small nodules surrounded by a hazy ground-glass infiltrate - most likely inflammatory and or infectious origin. IMPRESSION: 1. Acute congestive heart failure. 2. Status post respiratory insufficiency. 3. Bilateral pleural effusions. 4. Right lower lobe pneumonia. 5. Mild anemia. 6. Atrial fibrillation. PLAN: The patient appears comfortable this morning. She is not short of breath at rest. She does state to feeling much better overall. I did discuss the case with the night nurse at length. The night nurse stated that the patient had a very good night. I did review the CAT scan of the chest. Moderate-sized bilateral pleural effusions are noted. Adjacent to the effusions, there are bilateral lower lobe consolidations. Again,the right basal consolidation appears more prominent than the left basal consolidation. In addition, there are some other small scattered nodules with surrounding hazy infiltrates - most consistent with an inflammatory/infectious origin. I would continue with the antibiotic coverage as per Infectious Disease. Input by Dr. Moya is noted. I would also continue with the treatment for congestive heart failure as per Cardiology. The patient remains on intravenous Lasix. The patient is now on the Transitional Unit - where she will participate with physical therapy. The patient should be out of bed most of the day. I will also order chest physiotherapy to be done. The above measures should lead to increased aeration at the bases. The patient also remains on aspiration precautions. The clinical status of the patient is certainly improved - compared to her initial presentation. However, again, her future status/prognosis does remain guarded. I will discuss the above with Dr. Myers. Deandre Flaherty MD MTDD
--- NOTE | 2017-09-01 11:22 | PN ---
DATE: 09/01/2017 SUBJECTIVE: The patient has no complaints of any chest pain. No shortness of breath. No headaches. No dizziness. The initial H and P was reviewed from the hospital and I do agree with the in H and P. The patient is now in the transitional care unit. She is here from physical therapy. She is some hypoxic. She is home O2 dependent at home. PHYSICAL EXAMINATION VITAL SIGNS: Temperature is 97.9, pulse of 68, blood pressure is 113/66, respirations 20. GENERAL: The patient is lying in bed, flat, comfortable. HEENT: No oral lesion. Anicteric sclerae. Moist mucosa. NECK: No JVD, adenopathy, or thyromegaly. CARDIOVASCULAR: S1 and S2, regular. No murmurs, rubs, or gallops. LUNGS: Clear to auscultation bilaterally. No wheeze, rales, or rhonchi. ABDOMEN: Bowel sounds are positive, soft, nontender and nondistended. EXTREMITIES: No cyanosis, clubbing or edema. LABORATORY DATA: Chest CT done shows bilateral lower lobe consolidation and adjacent moderate-sized pleural effusion. ASSESSMENT 1. Acute congestive heart failure secondary to diastolic dysfunction. 2. Urinary tract infection secondary to Escherichia coli. 3. Atrial fibrillation, on Coumadin. 4. Hypoxia, O2 dependent at home. 5. Mitral stenosis. 6. Dyslipidemia. 7. Hypertension. 8. Sepsis secondary to urinary tract infection. 9. Gait dysfunction. 10. History of bladder cancer. PLAN: The patient is currently comfortable. She is on Colace for constipation. She is to continue on Lasix twice a day. She is on Lipitor for dyslipidemia. She is going to continue with metoprolol. The patient is on amlodipine for hypertension. The patient is on lisinopril for hypertension as well. The patient is on a heart-healthy diet. She is here from physical therapy, we are going to continue with physical therapy. Rock Myers MD
--- NOTE | 2017-09-01 13:19 | CP.PCM.CON ---
History of Present Illness - History of Present Illness History of Present Illness: 87 year old female with PMH of CAD, dyslipidemia, HTN, bladder CA, atrial fibrillation on anticoagulation, mitral stenosis, CVA was initially admitted to [facility] because of shortness of breath and was to be in acute CHF, but unable to rule out pneumonia. Patient was also found to have UTI and is on antibiotics for both possible pneumonia and UTI. She has done well and is now transferred to [facility] for continued medical therapy and physical therapy. Infectious diseases consult is requested to continue her antibiotics. She is currently comfortable on a chair, not in distress, no nausea or vomiting, no fever or chills, no abdominal pain, no dysuria. She is breathing much better but she is complaining of some loose bowel movements. Review of Systems - Review of Systems All systems: reviewed and no additional remarkable complaints except (as per HPI ) Past Patient History - Infectious Disease Hx of Infectious Diseases: None - Past Social History Smoking Status: Former Smoker - CARDIAC Hx Cardiac Disorders: Yes Hx Hypertension: Yes - PULMONARY Hx Respiratory Disorders: No - NEUROLOGICAL HX Cerebrovascular Accident: Yes - HEENT Hx HEENT Problems: No - RENAL Hx Chronic Kidney Disease: No - ENDOCRINE/METABOLIC Hx Endocrine Disorders: No - HEMATOLOGICAL/ONCOLOGICAL Hx Blood Disorders: Yes Hx Cancer: Yes (Bladder CA - long time ago) Hx Chemotherapy: Yes - INTEGUMENTARY Hx Dermatological Problems: Yes Other/Comment: skin discolorations - MUSCULOSKELETAL/RHEUMATOLOGICAL Hx Falls: No - GASTROINTESTINAL Hx Gastrointestinal Disorders: No - GENITOURINARY/GYNECOLOGICAL Hx Genitourinary Disorders: Yes (h/o bladder CA) Hx Reproductive Disorders: No - PSYCHIATRIC Hx Psychophysiologic Disorder: No Hx Substance Use: No - SURGICAL HISTORY Hx Surgeries: Yes Hx Cardiac Catheterization: Yes Hx Cholecystectomy: Yes Hx Coronary Stent: Yes (x2) - ANESTHESIA Hx Anesthesia: Yes Hx Anesthesia Reactions: No Hx Malignant Hyperthermia: No Meds Allergies/Adverse Reactions: Allergies Allergy/AdvReac Type Severity Reaction Status Date / Time No Known Allergies Allergy Verified 08/02/17 17:02 - Medications Medications: Current Medications Acetaminophen (Tylenol 325mg Tab) 650 mg PO Q4 PRN; Protocol PRN Reason: Headache Amlodipine Besylate (Norvasc) 10 mg PO DAILY ALISSA PRN Reason: Protocol Amoxicillin/Clavulanate Potassium (Augmentin 500 Mg-125 Mg Tab) 1 tab PO Q12 ALISSA PRN Reason: Protocol Last Admin: 08/31/17 21:37 Dose: 1 tab Atorvastatin Calcium (Lipitor) 40 mg PO HS ALISSA PRN Reason: Protocol Last Admin: 08/31/17 21:37 Dose: 40 mg Azithromycin (Zithromax) 250 mg PO DAILY ALISSA PRN Reason: Protocol Docusate Sodium (Colace) 100 mg PO TID ALISSA PRN Reason: Protocol Furosemide (Lasix) 40 mg IVP Q12 ALISSA PRN Reason: Protocol Last Admin: 08/31/17 21:37 Dose: Not Given Lisinopril (Zestril) 20 mg PO DAILY ALISSA PRN Reason: Protocol Loperamide HCl (Imodium) 2 mg PO QID PRN PRN Reason: Diarrhea Metoprolol Tartrate (Lopressor) 50 mg PO TID ALISSA PRN Reason: Protocol Warfarin Sodium (Coumadin) 2 mg PO 1800 ALISSA PRN Reason: Protocol Physical Exam - Constitutional Appears: Non-toxic, Chronically Ill - ENT Exam ENT Exam: Mucous Membranes Moist - Neck Exam Neck exam: Negative for: Lymphadenopathy, Meningismus - Respiratory Exam Respiratory Exam: Decreased Breath Sounds. absent: Rales - Cardiovascular Exam Cardiovascular Exam: +S1, +S2 - GI/Abdominal Exam GI & Abdominal Exam: Soft. absent: Tenderness Results - Vital Signs Recent Vital Signs: Last Vital Signs Temp 97.9 F 09/01/17 06:00 Pulse 100 H 09/01/17 08:36 Resp 20 09/01/17 06:00 BP 113/66 09/01/17 06:00 Pulse Ox 91 L 09/01/17 06:00 - Labs Labs: Laboratory Results - last 24 hr 09/01/17 07:40 PT 18.5 H INR 1.59 H Assessment & Plan - Assessment and Plan (Free Text) Plan: Assessment Systemic Inflammatory response syndrome, R/O due to right lower lobe community- acquired pneumonia R/O UTI with E. coli, on top of acute on chronic CHF CAD dyslipidemia HTN bladder CA atrial fibrillation on anticoagulation mitral stenosis CVA Plan Continue Augmentin and Zithromax day 4 and will target 5-7 days of therapy urine cx showing E. coli, blood cx negative will continue to monitor clinically
--- NOTE | 2017-09-02 07:18 | CP.PCM.PN ---
Subjective - Date & Time of Evaluation Date of Evaluation: 09/02/17 Time of Evaluation: 07:00 - Subjective Subjective: Stable in TCU. No CP or SOB. BiPap mask during the night PE: Lungs: rhonchi. Diminished BS at bases Cor: S1S2, irreg. Abd.: soft Ext.: no edema Neuro.: alert Labs 09/01 noted. INR = 1.59. Todays labs pending. CT chest noted: Bilateral basalar consolidations and moderate effusions, etc. CXR 08/31: No change in bi-basalar infiltrates and effusions Objective - Vital Signs/Intake and Output Vital Signs (last 24 hours): Temp Pulse Resp BP Pulse Ox 98 F 100 H 20 110/77 100 09/01/17 18:07 09/02/17 01:36 09/01/17 18:07 09/01/17 22:13 09/01/17 18:07 - Medications Medications: Current Medications Acetaminophen (Tylenol 325mg Tab) 650 mg PO Q4 PRN; Protocol PRN Reason: Headache Amlodipine Besylate (Norvasc) 10 mg PO DAILY ALISSA PRN Reason: Protocol Last Admin: 09/01/17 10:06 Dose: 10 mg Amoxicillin/Clavulanate Potassium (Augmentin 500 Mg-125 Mg Tab) 1 tab PO Q12 ALISSA PRN Reason: Protocol Last Admin: 09/01/17 22:11 Dose: 1 tab Atorvastatin Calcium (Lipitor) 40 mg PO HS ALISSA PRN Reason: Protocol Last Admin: 09/01/17 22:11 Dose: 40 mg Azithromycin (Zithromax) 250 mg PO DAILY ALISSA PRN Reason: Protocol Last Admin: 09/01/17 10:06 Dose: 250 mg Docusate Sodium (Colace) 100 mg PO TID ALISSA PRN Reason: Protocol Last Admin: 09/01/17 10:08 Dose: 100 mg Furosemide (Lasix) 40 mg IVP Q12 ALISSA PRN Reason: Protocol Last Admin: 09/01/17 22:13 Dose: 40 mg Lisinopril (Zestril) 20 mg PO DAILY ALISSA PRN Reason: Protocol Last Admin: 09/01/17 10:09 Dose: 20 mg Loperamide HCl (Imodium) 2 mg PO QID PRN PRN Reason: Diarrhea Metoprolol Tartrate (Lopressor) 50 mg PO TID ALISSA PRN Reason: Protocol Last Admin: 09/01/17 13:38 Dose: 50 mg Warfarin Sodium (Coumadin) 2 mg PO 1800 ALISSA PRN Reason: Protocol - Labs Labs: PT 18.5 SECONDS (9.4-12.5) H 09/01/17 07:40 INR 1.59 (0.93-1.08) H 09/01/17 07:40 Assessment and Plan - Assessment and Plan (Free Text) Assessment: Dyspnea/Back Pain UTI CHF R/O pneumonia CAD/PCIs Valvular heart disease: Mild , Mod/Sev. MS, Mod. TR, Sev. PH HBP HLD CVD CVA COPD/Former Smoker Bladder cancer Plan: Await todays labs. IV Lasix AB OOB/PT/Rehab Efforts per Pulm., ID, Dr. Myers Monitor: sats., I/O, labs, INR's Will follow.
[2017-09-02 08:59] LABS: BLOOD UREA NITROGEN 24 mg/dL (7-21); CALCIUM 8.5 mg/dL (8.4-10.5); GFR AFRICAN-AMERICAN > 60; GFR NON-AFRICAN AMERICAN 60
[2017-09-02 09:02] LABS: INR 1.8 (0.93-1.08); PROTHROMBIN TIME 20.9 SECONDS (9.4-12.5)
[2017-09-02] MEDS: Amoxicillin-Clav 500-125 mg Tab PO SCH ×2 (09:33→22:02)
[2017-09-02] MEDS ORDERED: Levalbuterol 0.63 MG/3 ML Inhal Soln UD IH PRN (11:17)
--- NOTE | 2017-09-02 12:23 | CP.PCM.PN ---
Subjective - Date & Time of Evaluation Date of Evaluation: 09/02/17 Time of Evaluation: 11:50 - Subjective Subjective: Comfortable, breathing better, no fevers, no nausea or vomiting, BM's are now more soft than watery. Objective - Vital Signs/Intake and Output Vital Signs (last 24 hours): Temp Pulse Resp BP Pulse Ox 98 F 100 H 20 110/77 100 09/01/17 18:07 09/02/17 01:36 09/01/17 18:07 09/01/17 22:13 09/01/17 18:07 - Medications Medications: Current Medications Acetaminophen (Tylenol 325mg Tab) 650 mg PO Q4 PRN; Protocol PRN Reason: Headache Amlodipine Besylate (Norvasc) 10 mg PO DAILY ALISSA PRN Reason: Protocol Last Admin: 09/01/17 10:06 Dose: 10 mg Amoxicillin/Clavulanate Potassium (Augmentin 500 Mg-125 Mg Tab) 1 tab PO Q12 ALISSA PRN Reason: Protocol Last Admin: 09/01/17 22:11 Dose: 1 tab Atorvastatin Calcium (Lipitor) 40 mg PO HS ALISSA PRN Reason: Protocol Last Admin: 09/01/17 22:11 Dose: 40 mg Azithromycin (Zithromax) 250 mg PO DAILY ALISSA PRN Reason: Protocol Last Admin: 09/01/17 10:06 Dose: 250 mg Docusate Sodium (Colace) 100 mg PO TID ALISSA PRN Reason: Protocol Last Admin: 09/01/17 10:08 Dose: 100 mg Furosemide (Lasix) 40 mg IVP Q12 ALISSA PRN Reason: Protocol Last Admin: 09/01/17 22:13 Dose: 40 mg Lisinopril (Zestril) 20 mg PO DAILY ALISSA PRN Reason: Protocol Last Admin: 09/01/17 10:09 Dose: 20 mg Loperamide HCl (Imodium) 2 mg PO QID PRN PRN Reason: Diarrhea Metoprolol Tartrate (Lopressor) 50 mg PO TID ALISSA PRN Reason: Protocol Last Admin: 09/01/17 13:38 Dose: 50 mg Warfarin Sodium (Coumadin) 2 mg PO 1800 ALISSA PRN Reason: Protocol - Labs Labs: PT 18.5 SECONDS (9.4-12.5) H 09/01/17 07:40 INR 1.59 (0.93-1.08) H 09/01/17 07:40 - Constitutional Appears: Non-toxic, Chronically Ill - Head Exam Head Exam: NORMAL INSPECTION - ENT Exam ENT Exam: Mucous Membranes Moist - Neck Exam Neck Exam: absent: Meningismus - Respiratory Exam Respiratory Exam: Decreased Breath Sounds. absent: Rales - Cardiovascular Exam Cardiovascular Exam: +S1, +S2 - GI/Abdominal Exam GI & Abdominal Exam: Soft. absent: Tenderness Assessment and Plan - Assessment and Plan (Free Text) Plan: Assessment Systemic Inflammatory response syndrome, R/O due to right lower lobe community- acquired pneumonia R/O UTI with E. coli, on top of acute on chronic CHF CAD R/O C.diff. associated diarrhea dyslipidemia HTN bladder CA atrial fibrillation on anticoagulation mitral stenosis CVA Plan Continue Augmentin and Zithromax day 5 and will target 5-7 days of therapy urine cx showing E. coli, blood cx negative will continue to follow clinically follow up stool for C. diff.
--- NOTE | 2017-09-02 14:28 | PN ---
DATE: 09/02/2017 PULMONARY PROGRESS NOTE SUBJECTIVE: The patient is feeling better. At this time, she is awaiting treatment and claims to have no real shortness of breath. PHYSICAL EXAMINATION: GENERAL: She is resting comfortably sitting in a chair. VITAL SIGNS: She is afebrile. Respiratory rate is 16, blood pressure 110/70, O2 sat 91% on room air and 94% on supplemental oxygen. HEENT: Normocephalic and atraumatic. No jugular venous distention. No lymphadenopathy. No bruit. CARDIOVASCULAR: Regular rhythm. S1, S2. Gallop is questionable. Systolic ejection murmur is questionable. LUNGS: Revealed global decrease in breath sounds. No rhonchi. No wheezes. Some rales noted at both bases. ABDOMEN: Soft. Bowel sounds normoactive without mass, guarding, rebound or organomegaly. EXTREMITIES: Revealed no clubbing or cyanosis. There is trace edema. No Homans sign. SKIN: No rash or excoriation. NEUROLOGIC: No focal findings. DATA: There remains on the CAT scan some residual pleural effusions, minor consolidations are noted as well, nodules are noted. All of these problems will require further evaluation. CLINICAL IMPRESSION: 1. Congestive heart failure, acute on chronic. 2. Respiratory insufficiency (status post). 3. Bilateral pleural effusions. 4. Right lower lobe pneumonia. 5. Pulmonary nodules. 6. Atrial fibrillation. PLAN: The patient will require further evaluation as an outpatient. She will continue to require vigorous bronchodilator and inhaled corticosteroids. She needs attention to her cardiovascular disease. We will need to repeat a CAT scan in the future to make sure that these problems resolve. The patient should be seen by Pulmonary after discharge. Issues of concern are effusions, scarring, nodules, COPD, congestive heart failure. We will discuss with Dr. Myers and continue vigorous supportive care. Prince Alejandre MD MTDD
[2017-09-02] MEDS ORDERED: Budesonide 0.5 mg/2 ml Inhal Susp UD IH SCH (20:00)
--- NOTE | 2017-09-03 07:28 | CP.PCM.PN ---
Subjective - Date & Time of Evaluation Date of Evaluation: 09/03/17 Time of Evaluation: 07:00 - Subjective Subjective: Stable in TCU. No CP or SOB. BiPap mask during the night V/S noted. BP 90s sys. at times PE: Lungs: rhonchi. Diminished BS at bases Cor: S1S2, irreg. Abd.: soft Ext.: no edema Neuro.: alert Labs 09/02 noted. INR = 1.8. Todays labs pending. CT chest noted: Bilateral basalar consolidations and moderate effusions, etc. CXR 08/31: No change in bi-basalar infiltrates and effusions Objective - Vital Signs/Intake and Output Vital Signs (last 24 hours): Temp Pulse Resp BP Pulse Ox 98.3 F 66 22 98/58 L 91 L 09/02/17 14:04 09/02/17 17:39 09/02/17 14:04 09/02/17 22:03 09/02/17 14:04 - Medications Medications: Current Medications Acetaminophen (Tylenol 325mg Tab) 650 mg PO Q4 PRN; Protocol PRN Reason: Headache Last Admin: 09/02/17 15:16 Dose: 650 mg Amlodipine Besylate (Norvasc) 10 mg PO DAILY ALISSA PRN Reason: Protocol Last Admin: 09/02/17 09:37 Dose: 10 mg Amoxicillin/Clavulanate Potassium (Augmentin 500 Mg-125 Mg Tab) 1 tab PO Q12 ALISSA PRN Reason: Protocol Last Admin: 09/02/17 22:02 Dose: 1 tab Atorvastatin Calcium (Lipitor) 40 mg PO HS ALISSA PRN Reason: Protocol Last Admin: 09/02/17 22:02 Dose: 40 mg Azithromycin (Zithromax) 250 mg PO DAILY ALISSA PRN Reason: Protocol Last Admin: 09/02/17 09:34 Dose: 250 mg Docusate Sodium (Colace) 100 mg PO TID ALISSA PRN Reason: Protocol Last Admin: 09/02/17 17:37 Dose: Not Given Furosemide (Lasix) 40 mg IVP Q12 ALISSA PRN Reason: Protocol Last Admin: 09/02/17 22:03 Dose: Not Given Lisinopril (Zestril) 20 mg PO DAILY ALISSA PRN Reason: Protocol Last Admin: 09/02/17 09:36 Dose: 20 mg Loperamide HCl (Imodium) 2 mg PO QID PRN PRN Reason: Diarrhea Last Admin: 09/02/17 13:55 Dose: 2 mg Metoprolol Tartrate (Lopressor) 50 mg PO TID ALISSA PRN Reason: Protocol Last Admin: 09/02/17 17:39 Dose: 50 mg Warfarin Sodium (Coumadin) 2 mg PO 1800 ALISSA PRN Reason: Protocol Last Admin: 09/02/17 17:38 Dose: 2 mg - Labs Labs: 09/02/17 08:40 PT 20.9 SECONDS (9.4-12.5) H 09/02/17 08:40 INR 1.80 (0.93-1.08) H 09/02/17 08:40 Assessment and Plan - Assessment and Plan (Free Text) Assessment: Dyspnea/Back Pain UTI CHF R/O pneumonia CAD/PCIs Valvular heart disease: Mild , Mod/Sev. MS, Mod. TR, Sev. PH HBP HLD CVD CVA COPD/Former Smoker Bladder cancer Plan: Await todays labs. IV Lasix AB OOB/PT/Rehab Efforts per Pulm., ID, Dr. Myers Monitor: sats., I/O, labs, INR's Will follow.
[2017-09-03 08:42] LABS: INR 1.77 (0.93-1.08); PROTHROMBIN TIME 20.6 SECONDS (9.4-12.5)
[2017-09-03] MEDS: Amoxicillin-Clav 500-125 mg Tab PO SCH ×2 (09:33→21:09)
--- NOTE | 2017-09-03 13:35 | CP.PCM.PN ---
Subjective - Date & Time of Evaluation Date of Evaluation: 09/03/17 Time of Evaluation: 13:10 - Subjective Subjective: Comfortably resting in bed, no fevers. Objective - Vital Signs/Intake and Output Vital Signs (last 24 hours): Temp Pulse Resp BP Pulse Ox 98.3 F 91 H 22 112/68 91 L 09/02/17 14:04 09/03/17 09:34 09/02/17 14:04 09/03/17 09:36 09/02/17 14:04 - Medications Medications: Current Medications Acetaminophen (Tylenol 325mg Tab) 650 mg PO Q4 PRN; Protocol PRN Reason: Headache Last Admin: 09/02/17 15:16 Dose: 650 mg Amlodipine Besylate (Norvasc) 10 mg PO DAILY ALISSA PRN Reason: Protocol Last Admin: 09/03/17 09:34 Dose: 10 mg Amoxicillin/Clavulanate Potassium (Augmentin 500 Mg-125 Mg Tab) 1 tab PO Q12 ALISSA PRN Reason: Protocol Last Admin: 09/03/17 09:33 Dose: 1 tab Atorvastatin Calcium (Lipitor) 40 mg PO HS ALISSA PRN Reason: Protocol Last Admin: 09/02/17 22:02 Dose: 40 mg Azithromycin (Zithromax) 250 mg PO DAILY ALISSA PRN Reason: Protocol Last Admin: 09/03/17 09:33 Dose: 250 mg Docusate Sodium (Colace) 100 mg PO TID ALISSA PRN Reason: Protocol Last Admin: 09/03/17 09:32 Dose: Not Given Furosemide (Lasix) 40 mg IVP Q12 ALISSA PRN Reason: Protocol Last Admin: 09/03/17 09:36 Dose: 40 mg Lisinopril (Zestril) 20 mg PO DAILY ALISSA PRN Reason: Protocol Last Admin: 09/03/17 09:33 Dose: 20 mg Loperamide HCl (Imodium) 2 mg PO QID PRN PRN Reason: Diarrhea Last Admin: 09/02/17 13:55 Dose: 2 mg Metoprolol Tartrate (Lopressor) 50 mg PO TID ALISSA PRN Reason: Protocol Last Admin: 09/03/17 09:34 Dose: 50 mg Warfarin Sodium (Coumadin) 2 mg PO 1800 ALISSA PRN Reason: Protocol Last Admin: 09/02/17 17:38 Dose: 2 mg - Labs Labs: 09/02/17 08:40 PT 20.6 SECONDS (9.4-12.5) H 09/03/17 08:20 INR 1.77 (0.93-1.08) H 09/03/17 08:20 - Constitutional Appears: Non-toxic, Chronically Ill - Head Exam Head Exam: NORMAL INSPECTION - Respiratory Exam Respiratory Exam: Decreased Breath Sounds - Cardiovascular Exam Cardiovascular Exam: +S1, +S2 - GI/Abdominal Exam GI & Abdominal Exam: Soft. absent: Tenderness Assessment and Plan - Assessment and Plan (Free Text) Plan: Assessment Systemic Inflammatory response syndrome, R/O due to right lower lobe community- acquired pneumonia R/O UTI with E. coli, on top of acute on chronic CHF CAD R/O C.diff. associated diarrhea dyslipidemia HTN bladder CA atrial fibrillation on anticoagulation mitral stenosis CVA Plan Continue Augmentin and Zithromax day 6 and will target 5-7 days of therapy urine cx showing E. coli, blood cx negative will continue to follow clinically follow up stool for C. diff.
[2017-09-04 07:21] LABS: INR 1.79 (0.93-1.08); PROTHROMBIN TIME 20.8 SECONDS (9.4-12.5)
--- NOTE | 2017-09-04 07:52 | CP.PCM.PN ---
Subjective - Date & Time of Evaluation Date of Evaluation: 09/04/17 Time of Evaluation: 07:00 - Subjective Subjective: Stable in TCU. No CP or SOB. BiPap mask during the night V/S noted. BP 90s sys. at times PE: Lungs: rhonchi. Diminished BS at bases Cor: S1S2, irreg. Abd.: soft Ext.: no edema Neuro.: alert 09/03 INR = 1.79. CT chest noted: Bilateral basalar consolidations and moderate effusions, etc. CXR 08/31: No change in bi-basalar infiltrates and effusions Objective - Vital Signs/Intake and Output Vital Signs (last 24 hours): Temp Pulse Resp BP Pulse Ox 97.3 F L 68 18 116/53 L 100 09/04/17 06:00 09/04/17 06:00 09/04/17 06:00 09/04/17 06:00 09/04/17 06:00 - Medications Medications: Current Medications Acetaminophen (Tylenol 325mg Tab) 650 mg PO Q4 PRN; Protocol PRN Reason: Headache Last Admin: 09/02/17 15:16 Dose: 650 mg Amlodipine Besylate (Norvasc) 10 mg PO DAILY ALISSA PRN Reason: Protocol Last Admin: 09/03/17 09:34 Dose: 10 mg Amoxicillin/Clavulanate Potassium (Augmentin 500 Mg-125 Mg Tab) 1 tab PO Q12 ALISSA PRN Reason: Protocol Last Admin: 09/03/17 21:09 Dose: 1 tab Atorvastatin Calcium (Lipitor) 40 mg PO HS ALISSA PRN Reason: Protocol Last Admin: 09/03/17 21:09 Dose: 40 mg Azithromycin (Zithromax) 250 mg PO DAILY ALISSA PRN Reason: Protocol Last Admin: 09/03/17 09:33 Dose: 250 mg Docusate Sodium (Colace) 100 mg PO TID ALISSA PRN Reason: Protocol Last Admin: 09/03/17 17:16 Dose: Not Given Furosemide (Lasix) 40 mg IVP Q12 ALISSA PRN Reason: Protocol Last Admin: 09/03/17 21:09 Dose: 40 mg Lisinopril (Zestril) 20 mg PO DAILY ALISSA PRN Reason: Protocol Last Admin: 09/03/17 09:33 Dose: 20 mg Loperamide HCl (Imodium) 2 mg PO QID PRN PRN Reason: Diarrhea Last Admin: 09/02/17 13:55 Dose: 2 mg Metoprolol Tartrate (Lopressor) 50 mg PO BID ALISSA PRN Reason: Protocol Warfarin Sodium (Coumadin) 3 mg PO 1800 ALISSA PRN Reason: Protocol - Labs Labs: 09/02/17 08:40 PT 20.8 SECONDS (9.4-12.5) H 09/04/17 07:00 INR 1.79 (0.93-1.08) H 09/04/17 07:00 Assessment and Plan - Assessment and Plan (Free Text) Assessment: Dyspnea/Back Pain UTI CHF R/O pneumonia CAD/PCIs Valvular heart disease: Mild , Mod/Sev. MS, Mod. TR, Sev. PH HBP HLD CVD CVA COPD/Former Smoker Bladder cancer Plan: IV Lasix Decrease metoprolol 50 BID AB as per ID OOB/PT/Rehab Efforts per Pulm., ID, Dr. Myers BMP, INR in AM Will follow.
[2017-09-04] MEDS: Amoxicillin-Clav 500-125 mg Tab PO SCH ×2 (09:58→21:22)
--- NOTE | 2017-09-04 10:31 | PN ---
DATE: 09/04/2017 SUBJECTIVE: The patient has no complaints of any chest pain, no shortness of breath, no headaches or dizziness. PHYSICAL EXAMINATION VITAL SIGNS: Temperature is 97.3, pulse of 68, blood pressure is 116/53, respirations 18. GENERAL: The patient is lying in bed, flat, comfortable. HEENT: No oral lesion. Anicteric sclerae. Moist mucosa. NECK: No JVD, adenopathy, or thyromegaly. CARDIOVASCULAR: S1 and S2, regular. No murmurs, rubs, or gallops. LUNGS: Clear to auscultation bilaterally. No wheeze, rales, or rhonchi. ABDOMEN: Bowel sounds are positive, soft, nontender and nondistended. EXTREMITIES: No cyanosis, clubbing or edema. ASSESSMENT: 1. Acute congestive heart failure secondary to diastolic dysfunction. 2. Urinary tract infection secondary to Escherichia coli. 3. Atrial fibrillation, on Coumadin. 4. Hypoxia, home O2 dependent at 2-3 liters. 5. Mitral stenosis. 6. Dyslipidemia. 7. Hypertension. 8. Sepsis secondary to urinary tract infection. 9. History of bladder cancer. 10. Gait dysfunction. PLAN: The patient is ambulating well. The patient is getting physical therapy. She is sitting out of bed in a chair. She is on Coumadin. I will increase her Coumadin as her INR is subtherapeutic to 4 mg. The patient is on Imodium as needed. She is on Lasix twice a day. She is on Norvasc for hypertension. She is on lisinopril. She uses a BiPAP. She is on 4 liters of O2. I did speak to the patient's family to give them an update of the patient's diagnoses and plan of care. Continue physical therapy. Rock Myers MD
[2017-09-04 10:36] LABS: ARTERIAL BLOOD GAS HCO3 30.6 mmol/L (21-28); ARTERIAL BLOOD GAS HEMOGLOBIN 10.2 g/dL (11.7-17.4); ARTERIAL BLOOD GAS O2 CAPACITY 13.9 mL/dl (16-24); ARTERIAL BLOOD GAS O2 CONTENT 12.7 ML/dl (15-23); ARTERIAL BLOOD GAS O2 SAT 91.5 % (95-98); ARTERIAL BLOOD GAS PCO2 43 mm/Hg (35-45); ARTERIAL BLOOD GAS PH 7.46 (7.35-7.45); ARTERIAL BLOOD GAS TCO2 31.9 mmol.L (22-28)
--- NOTE | 2017-09-04 11:25 | PN ---
DATE: 09/04/2017 PULMONARY PROGRESS NOTE SUBJECTIVE: The patient is markedly better, doing well, anxious to be discharged. The patient has no shortness of breath. The need for BiPAP at night is questionable. The patient has no signs or symptoms of sleep apnea. Respiratory failure seems to have resolved. PHYSICAL EXAMINATION: GENERAL: The patient is comfortable, in no acute distress. VITAL SIGNS: Stable. Blood pressure 110/70, O2 sat 94% on supplemental oxygen. HEENT: Normocephalic, atraumatic. No jugular venous distention. No lymphadenopathy. No bruit. CARDIOVASCULAR: Regular rhythm. S1, S2. No gallop is heard. There is questionable soft systolic ejection murmur. LUNGS: Reveal global decrease in breath sounds, but no rales, rhonchi or wheezes. ABDOMEN: Soft. Bowel sounds normoactive without mass, guarding, rebound, organomegaly. EXTREMITIES: Reveal no clubbing, cyanosis or edema. There is no Homans' sign. LYMPHADENOPATHY: There are no lymph nodes palpated in the supraclavicular notch nor in the cervical, inguinal or axillary areas. SKIN: No rash or excoriation. NEUROLOGIC: There are no focal findings. CLINICAL IMPRESSION: 1. Congestive heart failure, acute and chronic. 2. Respiratory insufficiency, status post #3. 3. Bilateral pleural effusions from heart failure, resolving right lower lobe pneumonia. 4. Pulmonary nodules. 5. Atrial fibrillation. 6. Use of bilevel positive airway pressure, etiology unclear, possibly status post respiratory failure. The patient does use nocturnal oxygen at home. I do not think that she will require bilevel positive airway pressure. We will do an oxygen saturation test tonight without bilevel positive airway pressure to look for oxygen desaturation. She can use her oxygen at that time. Unfortunately, we cannot do a sleep study at this time. A blood gas will be done in the morning to make sure there is no CO2 retention or hypoxemia. PLAN: Follow her closely. Await results of nocturnal O2 saturation and ABG. Continue vigorous care. We will decide on the need for further intervention based on her status in the morning. Prince Alejandre MD [facility] # [id number]
--- NOTE | 2017-09-04 18:31 | CP.PCM.PN ---
Subjective - Date & Time of Evaluation Date of Evaluation: 09/04/17 Time of Evaluation: 11:50 - Subjective Subjective: No fevers, not in distress. Objective - Vital Signs/Intake and Output Vital Signs (last 24 hours): Temp Pulse Resp BP Pulse Ox 97.3 F L 68 18 116/53 L 100 09/04/17 06:00 09/04/17 06:00 09/04/17 06:00 09/04/17 06:00 09/04/17 06:00 - Medications Medications: Current Medications Acetaminophen (Tylenol 325mg Tab) 650 mg PO Q4 PRN; Protocol PRN Reason: Headache Last Admin: 09/02/17 15:16 Dose: 650 mg Amlodipine Besylate (Norvasc) 10 mg PO DAILY ALISSA PRN Reason: Protocol Last Admin: 09/03/17 09:34 Dose: 10 mg Amoxicillin/Clavulanate Potassium (Augmentin 500 Mg-125 Mg Tab) 1 tab PO Q12 ALISSA PRN Reason: Protocol Last Admin: 09/03/17 21:09 Dose: 1 tab Atorvastatin Calcium (Lipitor) 40 mg PO HS ALISSA PRN Reason: Protocol Last Admin: 09/03/17 21:09 Dose: 40 mg Docusate Sodium (Colace) 100 mg PO TID ALISSA PRN Reason: Protocol Last Admin: 09/03/17 17:16 Dose: Not Given Furosemide (Lasix) 40 mg IVP Q12 ALISSA PRN Reason: Protocol Last Admin: 09/03/17 21:09 Dose: 40 mg Lisinopril (Zestril) 20 mg PO DAILY ALISSA PRN Reason: Protocol Last Admin: 09/03/17 09:33 Dose: 20 mg Loperamide HCl (Imodium) 2 mg PO QID PRN PRN Reason: Diarrhea Last Admin: 09/02/17 13:55 Dose: 2 mg Metoprolol Tartrate (Lopressor) 50 mg PO BID ALISSA PRN Reason: Protocol Warfarin Sodium (Coumadin) 4 mg PO 1800 [facility] - Labs Labs: 09/02/17 08:40 PT 20.8 SECONDS (9.4-12.5) H 09/04/17 07:00 INR 1.79 (0.93-1.08) H 09/04/17 07:00 - Constitutional Appears: Chronically Ill - Head Exam Head Exam: NORMAL INSPECTION - Respiratory Exam Respiratory Exam: Decreased Breath Sounds - Cardiovascular Exam Cardiovascular Exam: +S1, +S2 - GI/Abdominal Exam GI & Abdominal Exam: Soft. absent: Tenderness Assessment and Plan - Assessment and Plan (Free Text) Plan: Assessment Systemic Inflammatory response syndrome, R/O due to right lower lobe community- acquired pneumonia R/O UTI with E. coli, on top of acute on chronic CHF CAD R/O C.diff. associated diarrhea dyslipidemia HTN bladder CA atrial fibrillation on anticoagulation mitral stenosis CVA Plan Continue Augmentin and Zithromax day 7 and will target 5-7 days of therapy urine cx showing E. coli, blood cx negative will continue to monitor clinically follow up stool for C. diff.
[2017-09-05 07:24] LABS: INR 1.87 (0.93-1.08); PROTHROMBIN TIME 21.8 SECONDS (9.4-12.5)
[2017-09-05] MEDS: Amoxicillin-Clav 500-125 mg Tab PO SCH (10:14)
--- NOTE | 2017-09-05 14:19 | CP.PCM.PN ---
Subjective - Date & Time of Evaluation Date of Evaluation: 09/05/17 Time of Evaluation: 11:30 - Subjective Subjective: Comfortable, breathing much better, no fevers, no diarrhea. Objective - Vital Signs/Intake and Output Vital Signs (last 24 hours): Temp Pulse Resp BP Pulse Ox 97.5 F L 79 20 126/69 93 L 09/05/17 06:00 09/05/17 07:48 09/05/17 06:00 09/05/17 07:48 09/05/17 06:00 - Medications Medications: Current Medications Acetaminophen (Tylenol 325mg Tab) 650 mg PO Q4 PRN; Protocol PRN Reason: Headache Last Admin: 09/04/17 18:37 Dose: 650 mg Amlodipine Besylate (Norvasc) 10 mg PO DAILY ALISSA PRN Reason: Protocol Last Admin: 09/04/17 09:59 Dose: Not Given Amoxicillin/Clavulanate Potassium (Augmentin 500 Mg-125 Mg Tab) 1 tab PO Q12 ALISSA PRN Reason: Protocol Last Admin: 09/04/17 21:22 Dose: 1 tab Atorvastatin Calcium (Lipitor) 40 mg PO HS ALISSA PRN Reason: Protocol Last Admin: 09/04/17 21:22 Dose: 40 mg Docusate Sodium (Colace) 100 mg PO TID ALISSA PRN Reason: Protocol Last Admin: 09/04/17 17:07 Dose: Not Given Furosemide (Lasix) 40 mg IVP 0600,1800 ALISSA PRN Reason: Protocol Lisinopril (Zestril) 20 mg PO DAILY ALISSA PRN Reason: Protocol Last Admin: 09/04/17 10:01 Dose: 20 mg Loperamide HCl (Imodium) 2 mg PO QID PRN PRN Reason: Diarrhea Last Admin: 09/02/17 13:55 Dose: 2 mg Metoprolol Tartrate (Lopressor) 50 mg PO 0800,1800 ALISSA PRN Reason: Protocol Warfarin Sodium (Coumadin) 4 mg PO 1800 ALISSA Last Admin: 09/04/17 17:07 Dose: 4 mg - Labs Labs: 09/02/17 08:40 PT 21.8 SECONDS (9.4-12.5) H 09/05/17 06:45 INR 1.87 (0.93-1.08) H 09/05/17 06:45 - Constitutional Appears: Non-toxic, Chronically Ill - Head Exam Head Exam: NORMAL INSPECTION - ENT Exam ENT Exam: Mucous Membranes Moist - Neck Exam Neck Exam: absent: Meningismus - Respiratory Exam Respiratory Exam: Decreased Breath Sounds - Cardiovascular Exam Cardiovascular Exam: +S1, +S2 - GI/Abdominal Exam GI & Abdominal Exam: Soft. absent: Tenderness Assessment and Plan - Assessment and Plan (Free Text) Plan: Assessment Systemic Inflammatory response syndrome, R/O due to right lower lobe community- acquired pneumonia R/O UTI with E. coli, on top of acute on chronic CHF CAD R/O C.diff. associated diarrhea dyslipidemia HTN bladder CA atrial fibrillation on anticoagulation mitral stenosis CVA Plan completed Augmentin and Zithromax 7 days - will d/c antibiotics today urine cx showing E. coli, blood cx negative will continue to monitor clinically follow up stool for C. diff.
--- NOTE | 2017-09-06 10:56 | PN ---
DATE: 09/06/2017 SUBJECTIVE: Patient is seen sitting in a chair in the Transitional Care Unit. She states she is comfortable. She has been ambulating fairly well with the use of portable oxygen. Her heart rate has been relatively well controlled and ranging from 50 to 80. CURRENT MEDICATIONS: Include warfarin, Lasix 40 mg b.i.d., Lipitor 40 mg daily, metoprolol 50 mg b.i.d., Norvasc 10 mg daily, and Zestril 20 mg daily. OBJECTIVE: GENERAL: She is a very elderly woman, appears comfortable at the present time. VITAL SIGNS: Her blood pressure is 126/64, the pulse is 60, respirations are 16. She is afebrile. HEAD AND NECK: Unremarkable. CHEST: Reveals a few scattered rhonchi. HEART: PMI is displaced laterally with a systolic murmur noted at the lower left sternal border and apex. ABDOMEN: Soft and nontender. Normoactive bowel sounds. EXTREMITIES: No edema. DIAGNOSTIC DATA: No blood work pending from this morning. Her last INR is 1.87 yesterday. IMPRESSION: 1. Severe functional mitral stenosis secondary to extensive mitral annular calcification. 2. Moderate tricuspid regurgitation. 3. Coronary artery disease, status post multivessel percutaneous coronary intervention. 4. Persistent back pain. RECOMMENDATIONS: Her current medications should continue for now. Maintaining adequate beta-blockade is advisable given her mitral stenosis. Control her heart rate to allow for adequate diastolic filling time, will be helpful and reducing her symptomatology. In general, conservative management will continue. We will follow along as needed. Jose Blancas MD
--- NOTE | 2017-09-06 10:57 | RAD ---
HISTORY: pleural effusion COMPARISON: 08/31/2017 TECHNIQUE: Chest PA and lateral FINDINGS: LUNGS: There is improvement in the left lower lobe infiltrate. There is persistent infiltrate in the right lower lobe. PLEURA: No significant pleural effusion identified. No pneumothorax apparent. CARDIOVASCULAR: Decreased vascular congestion OSSEOUS STRUCTURES: No significant abnormalities. VISUALIZED UPPER ABDOMEN: Normal. OTHER FINDINGS: None. IMPRESSION: Persistent infiltrate in the right lower lobe. Improvement in left lower lobe infiltrate. Improvement in vascular congestion
--- NOTE | 2017-09-06 11:40 | PN ---
DATE: 09/06/2017 SUBJECTIVE: The patient has no complaints of any chest pain. No shortness of breath, no headaches or dizziness. PHYSICAL EXAMINATION: VITAL SIGNS: Temperature is 97.2, pulse of 83, blood pressure 128/66, respirations 18. GENERAL: The patient is lying in bed, flat, comfortable. HEENT: No oral lesion. Anicteric sclerae. Moist mucosa. NECK: No JVD, adenopathy, or thyromegaly. CARDIOVASCULAR: S1 and S2, regular. No murmurs, rubs, or gallops. LUNGS: Clear to auscultation bilaterally. No wheeze, rales, or rhonchi. ABDOMEN: Bowel sounds are positive. Soft, nontender and nondistended. EXTREMITIES: No cyanosis, clubbing or edema. ASSESSMENT: 1. Acute congestive heart failure secondary to diastolic dysfunction. 2. Urinary tract infection secondary to Escherichia coli, resolved. 3. Hypoxia, on home oxygen. 4. Atrial fibrillation, on Coumadin. 5. Mitral stenosis. 6. Sepsis secondary to urinary tract infection. 7. History of bladder cancer. 8. Gait dysfunction. PLAN: The patient is currently comfortable. She is on Coumadin at 4 mg. She is going to continue with Colace for constipation. She is on Lipitor for dyslipidemia. She is on Norvasc for hypertension. She is on for hypertension as well. She is being followed by Pulmonary and Cardiology. She is getting her BiPAP. She is ambulating. Rock Myers MD
--- NOTE | 2017-09-06 14:09 | PN ---
DATE: 09/06/2017 PULMONARY PROGRESS NOTE SUBJECTIVE: Patient was seen and examined at bedside. She feels better. She is not short of breath at rest. She did not use BiPAP last night. PHYSICAL EXAMINATION: VITAL SIGNS: Temperature is 98, pulse 74, respirations 20, blood pressure 110/70, oxygen saturation 94% on room air. HEENT: Head normocephalic and atraumatic. CARDIOVASCULAR: S1 and S2. No S3. Irregular. PULMONARY: Few scattered rhonchi. No wheezing. GASTROINTESTINAL: Soft and nontender. No organomegaly. EXTREMITIES: No clubbing, cyanosis or edema. LYMPHATICS: No lymphadenopathy in the neck, axilla or groin. SKIN: No skin rash. NEUROLOGIC: Limited at the present time. ASSESSMENT: 1. Exacerbation of chronic obstructive pulmonary disease. 2. Congestive heart failure. 3. Respiratory insufficiency. 4. Pulmonary nodule. PLAN: Patient is being weaned off BiPAP. She is on nebulizer treatment, benefitted greatly. Her respiratory status has improved. She does have nocturnal oxygen, the need for which should be further evaluated. Dr. Alejandre suggested blood gas to rule out CO2 retention and nocturnal oxygen saturation to evaluate the further need for oxygen. Her pulse oximetry is 99 on nasal cannula and 91 on room air. Prieto Kennedy MD
--- NOTE | 2017-09-06 16:58 | CP.PCM.PN ---
Subjective - Date & Time of Evaluation Date of Evaluation: 09/06/17 Time of Evaluation: 09:15 - Subjective Subjective: Comfortable on a chair, breathing well, no fevers. Objective - Vital Signs/Intake and Output Vital Signs (last 24 hours): Temp Pulse Resp BP Pulse Ox 97.7 F 60 16 128/66 99 09/06/17 05:56 09/06/17 07:44 09/06/17 05:56 09/06/17 07:44 09/06/17 05:56 - Medications Medications: Current Medications Acetaminophen (Tylenol 325mg Tab) 650 mg PO Q4 PRN; Protocol PRN Reason: Headache Last Admin: 09/05/17 21:26 Dose: 650 mg Amlodipine Besylate (Norvasc) 10 mg PO DAILY ALISSA PRN Reason: Protocol Last Admin: 09/05/17 10:21 Dose: Not Given Atorvastatin Calcium (Lipitor) 40 mg PO HS ALISSA PRN Reason: Protocol Last Admin: 09/05/17 21:28 Dose: 40 mg Docusate Sodium (Colace) 100 mg PO TID ALISSA PRN Reason: Protocol Last Admin: 09/05/17 17:14 Dose: Not Given Furosemide (Lasix) 40 mg IVP 0600,1800 ALISSA PRN Reason: Protocol Last Admin: 09/06/17 05:36 Dose: 40 mg Lisinopril (Zestril) 20 mg PO DAILY ALISSA PRN Reason: Protocol Last Admin: 09/05/17 10:20 Dose: Not Given Loperamide HCl (Imodium) 2 mg PO QID PRN PRN Reason: Diarrhea Last Admin: 09/02/17 13:55 Dose: 2 mg Metoprolol Tartrate (Lopressor) 50 mg PO 0800,1800 ALISSA PRN Reason: Protocol Last Admin: 09/06/17 07:44 Dose: 50 mg Warfarin Sodium (Coumadin) 4 mg PO 1800 ALISSA Last Admin: 09/05/17 17:15 Dose: 4 mg - Labs Labs: 09/02/17 08:40 PT 21.8 SECONDS (9.4-12.5) H 09/05/17 06:45 INR 1.87 (0.93-1.08) H 09/05/17 06:45 - Constitutional Appears: Chronically Ill - Head Exam Head Exam: NORMAL INSPECTION - Neck Exam Neck Exam: absent: Meningismus - Respiratory Exam Respiratory Exam: Decreased Breath Sounds - Cardiovascular Exam Cardiovascular Exam: +S1, +S2 - GI/Abdominal Exam GI & Abdominal Exam: Soft. absent: Tenderness Assessment and Plan - Assessment and Plan (Free Text) Plan: Assessment S/P Systemic Inflammatory response syndrome, R/O due to right lower lobe community-acquired pneumonia R/O UTI with E. coli, on top of acute on chronic CHF CAD R/O C.diff. associated diarrhea dyslipidemia HTN bladder CA atrial fibrillation on anticoagulation mitral stenosis CVA Plan completed Augmentin and Zithromax 7 days - will continue to monitor off antibiotics since she is at risk for infections
[2017-09-07 05:45] VITALS: RESP 20
[2017-09-07 07:08] LABS: HEMOGLOBIN 11.2 g/dL (12.0-16.0); MEAN CELL VOLUME 83.3 fl (80.0-105.0); MEAN CORPUSCULAR HEMOGLOBIN 25.6 pg (25.0-35.0); MEAN CORPUSCULAR HGB CONC 30.8 g/dl (31.0-37.0); RBC 4.37 10^6/uL (3.5-6.1); RED CELL DISTRIBUTION WIDTH 14.9 % (11.5-14.5); WHITE BLOOD COUNT 8.4 10^3/ul (4.5-11.0)
[2017-09-07 07:15] LABS: INR 2.67 (0.93-1.08); PROTHROMBIN TIME 31.3 SECONDS (9.4-12.5)
[2017-09-07 07:41] LABS: ALB/GLOB RATIO 1.1 (1.1-1.8); ALBUMIN 3.7 g/dL (3.0-4.8); ALT/SGPT 51 U/L (7-56); AST/SGOT 35 U/L (14-36); BLOOD UREA NITROGEN 19 mg/dL (7-21); CALCIUM 8.9 mg/dL (8.4-10.5); GFR AFRICAN-AMERICAN > 60; GFR NON-AFRICAN AMERICAN 53
[2017-09-07] MEDS ORDERED: Fluticasone-Salmeterol 250-50mcg Diskus IH SCH (10:00)
--- NOTE | 2017-09-07 10:42 | PN ---
DATE: 09/07/2017 PULMONARY PROGRESS NOTE SUBJECTIVE: The patient is markedly improved. She feels better. We were awaiting followup testing to see if the patient needs BiPAP at home. PHYSICAL EXAMINATION: GENERAL: The patient is comfortable, in no acute respiratory distress. VITAL SIGNS: Stable. She is afebrile. Her pulse is 74, respiratory rate 18, blood pressure 112/72. HEENT: Normocephalic, atraumatic. CARDIOVASCULAR: Irregular rhythm. S1, S2 without murmur or gallop. CHEST: Minimal rhonchi. Minimal wheezes. No acute distress. ABDOMEN: Soft. Bowel sounds normoactive without any mass, guarding or rebound. No organomegaly. EXTREMITIES: Reveal no clubbing, cyanosis or edema. NEUROLOGIC: Normal. SKIN: Dry; intact. LABORATORY STUDIES: Arterial blood gases noted at night. There is some desaturation, which is already known. The patient takes oxygen at home. There does not appear to be the need for home BiPAP as the patient still has some CO2 retention, but requires further medications. ASSESSMENT: 1. Chronic obstructive pulmonary disease. 2. Congestive heart failure. 3. Status post respiratory insufficiency. 4. Pulmonary nodule. 5. Status post pneumonia. PLAN: The patient needs a followup x-ray to show complete clearance of x-ray in the future. I will notify the daughter at this time the need for this. She needs a complete pulmonary function study to determine the severity of her COPD. She should go home on a long-acting bronchodilator and inhaled corticosteroid as well as LAMA. We have discussed followup with the patient and her family. She should continue oxygen at night, no more than 2 L a minute. During the day, she should try to get portable concentrator, which my office can help her get. This will enable her to feel better. Further intensive therapy is required at home. Prince Alejandre MD MTDD
[2017-09-07] MEDS: Tiotropium 18 mcg Cap For Inhalation IH SCH (12:17)
[2017-09-07] MEDS: Budesonide 0.5 mg/2 ml Inhal Susp UD IH SCH ×2 (13:19→20:04)
[2017-09-07] MEDS: Arformoterol 15 mcg/2 ml Inh Sol IH SCH ×2 (13:19→20:04)
[2017-09-07 17:01] VITALS: TEMP 98
[2017-09-07 17:12] VITALS: O2SAT 95
--- NOTE | 2017-09-07 19:36 | PN ---
DATE: 09/07/2017 SUBJECTIVE: Patient was seen today in 320. No fevers and no chills. No nausea or vomiting. PHYSICAL EXAMINATION: VITAL SIGNS: Temperature is 98, blood pressure is 111/60, respiratory rate of 20, heart rate of 86. HEENT: Unremarkable. NECK: Supple. LUNGS: Decreased breath sounds. HEART: Normal S1 and S2. ABDOMEN: Soft, nontender. LABORATORY EXAMINATION: Revels the patient's white count is 8.4, hemoglobin of 11. BUN of 19, creatinine of 1. ASSESSMENT AND PLAN: This is an 87-year-old female who was seen earlier today in room 320 status post systemic inflammatory response syndrome, right lower lobe community-acquired pneumonia, urinary tract infection with Escherichia coli and [id number] congestive heart failure with coronary artery disease, has completed Augmentin and Zithromax, currently now off of antibiotics, afebrile and doing well. Chaz Moya MD
[2017-09-08] MEDS: Arformoterol 15 mcg/2 ml Inh Sol IH SCH (07:17)
[2017-09-08] MEDS: Budesonide 0.5 mg/2 ml Inhal Susp UD IH SCH (07:19)
[2017-09-08] MEDS: Tiotropium 18 mcg Cap For Inhalation IH SCH (09:17)
[2017-09-08 09:22] VITALS: BP 118/70; PULSE 79
--- NOTE | 2017-09-08 09:51 | PN ---
DATE: 09/08/2017 SUBJECTIVE: The patient is in bed in no acute distress, nontoxic. PHYSICAL EXAMINATION VITAL SIGNS: Temperature is 98, blood pressure is 115/60, respiratory rate of 18, heart rate of 82. HEENT: Unremarkable. NECK: Supple. LUNGS: Decreased breath sounds. HEART: Normal S1 and S2. ABDOMEN: Soft, nontender. MEDICATIONS: Review of the medications reveals the patient is off of antibiotics. ASSESSMENT AND PLAN: This is an 87-year-old female who was seen earlier this morning in room 320 with systemic inflammatory response syndrome, right lower lobe community-acquired pneumonia, urinary tract infection, Escherichia coli and acute on chronic congestive heart failure and completed Augmentin and Zithromax, currently off of antibiotics, afebrile and possible discharge today. Chaz Moya MD
--- NOTE | 2017-09-08 13:10 | DS ---
HISTORY OF PRESENT ILLNESS: The patient has no complaints of any chest pain. No shortness of breath. No headache. No dizziness. She had come into the Transitional Care Unit for rehab, treated fairly well. She is ambulating better. The patient has a chest x-ray that showed persistent infiltrate in the right lower lobe, this improved then on the left lower lobe infiltrate and improving vascular congestion. ASSESSMENT: 1. Acute congestive heart failure secondary to diastolic dysfunction. 2. Urinary tract infection secondary to Escherichia coli, resolved. 3. Hypoxia, on home O2. 4. Atrial fibrillation, on Coumadin. 5. Mitral stenosis. 6. Sepsis secondary to urinary tract infection. 7. History of bladder cancer. 8. Gait dysfunction. PLAN: The patient is currently on Coumadin. The patient's INR is therapeutic at 2.6. The patient is on Colace. She is going to continue Lipitor for dyslipidemia. The patient is on Lipitor for dyslipidemia, going to be on Toprol. She is on Norvasc for hypertension. She is on lisinopril for hypertension as well. The patient is going to be discharged tomorrow. CONDITION: Stable. ACTIVITIES: Increase as tolerated. Rock Myers MD
== END 2017-09-08 10:54 | disposition home health service (06) | DRG 91 ==
LOC: TRCU 18:50
PROVIDERS: ADMIT Internal Medicine Nephrology; ATTEND Internal Medicine Nephrology
PROC: F07Z9FZ Gait Training/Functional Ambulation Treatment using Assistive, Adaptive, Supportive or Protective Equipment (ICD-10-PCS; principal; 2017-09-02)
PROC: 5A09357 Assistance with Respiratory Ventilation, Less than 24 Consecutive Hours, Continuous Positive Airway Pressure (ICD-10-PCS; 2017-09-02)
PROC: F08Z2FZ Grooming/Personal Hygiene Treatment using Assistive, Adaptive, Supportive or Protective Equipment (ICD-10-PCS; 2017-09-03)
PROC: F07Z5FZ Bed Mobility Treatment using Assistive, Adaptive, Supportive or Protective Equipment (ICD-10-PCS; 2017-09-04)
PROC: F07Z8FZ Transfer Training Treatment using Assistive, Adaptive, Supportive or Protective Equipment (ICD-10-PCS; 2017-09-04)
PROC: F07L6ZZ Therapeutic Exercise Treatment of Musculoskeletal System - Lower Back / Lower Extremity (ICD-10-PCS; 2017-09-04)
PROC: F08Z0ZZ Bathing/Showering Techniques Treatment (ICD-10-PCS; 2017-09-07)
PROC: F08Z1ZZ Dressing Techniques Treatment (ICD-10-PCS; 2017-09-07)
DX: R26.9 Unspecified abnormalities of gait and mobility (principal); I50.33 Acute on chronic diastolic (congestive) heart failure; J18.9 Pneumonia, unspecified organism; J96.91 Respiratory failure, unspecified with hypoxia; N39.0 Urinary tract infection, site not specified; J44.0 Chronic obstructive pulmonary disease with (acute) lower respiratory infection; J44.1 Chronic obstructive pulmonary disease with (acute) exacerbation; I11.0 Hypertensive heart disease with heart failure; I48.91 Unspecified atrial fibrillation; I08.1 Rheumatic disorders of both mitral and tricuspid valves; E78.5 Hyperlipidemia, unspecified; I25.10 Atherosclerotic heart disease of native coronary artery without angina pectoris; B96.20 Unspecified Escherichia coli [E. coli] as the cause of diseases classified elsewhere; R91.1 Solitary pulmonary nodule; K59.00 Constipation, unspecified; Z99.81 Dependence on supplemental oxygen; Z87.891 Personal history of nicotine dependence; Z79.01 Long term (current) use of anticoagulants; Z85.51 Personal history of malignant neoplasm of bladder; Z86.73 Personal history of transient ischemic attack (TIA), and cerebral infarction without residual deficits

== ENCOUNTER 2017-09-12 06:48 | Observation (INO) | payer MEDICARE, SELFPAY ==
[2017-09-12] MEDS: diltiaZEM IVPB 100mg in NS 100 ML IV PRN ×2 (07:25→17:31)
[2017-09-12 07:29] LABS: BASO # 0.03 K/mm3 (0.0-2.0); BASO % 0.2 % (0.0-3.0); EOS # 0.2 (0.0-0.7); EOS % 1.4 % (1.5-5.0); GRAN # 9.9 (1.4-6.5); GRAN % 80.9 % (50.0-68.0); LYMPH # 1.4 (1.2-3.4); LYMPH % 11.7 % (22.0-35.0); MEAN CORPUSCULAR HEMOGLOBIN 25.8 pg (25.0-35.0); MEAN CORPUSCULAR HGB CONC 31.1 g/dl (31.0-37.0); MEAN PLATELET VOLUME 9.2 fl (7.0-11.0); MONO # 0.7 (0.1-0.6); MONO % 5.8 % (1.0-6.0); RBC 4.65 10^6/uL (3.5-6.1); RED CELL DISTRIBUTION WIDTH 15.2 % (11.5-14.5); WHITE BLOOD COUNT 12.2 10^3/ul (4.5-11.0)
--- NOTE | 2017-09-12 07:30 | ED PDOC ---
Arrival/HPI - General Time Seen by Provider: 09/12/17 07:15 Historian: Family (Daughter), EMS - History of Present Illness Narrative History of Present Illness (Text): 09/12/17 07:24 A 87 year old female, whose past medical history includes CHF, atrial fibrillation and CVA, brought into the emergency department by EMS accompanied by daughter for worsening shortness of breath this morning. As per EMS, patient given 125 mg Solumedrol and 20 mg Lasix on the field. Daughter reports a pulse ox of 77% on 4L of oxygen at home. She states patients symptoms usually worsen after laying down flat to sleep. Daughter denies any fever, cough, neurological deficits. Patient unable to provide further history. PMD: Dr. Faith Scalehouse Attendant: Dr. Garcia Time/Duration: Other (this morning) Context: Home Past Medical History - Provider Review Nursing Documentation Reviewed: Yes - Infectious Disease Hx of Infectious Diseases: None - Cardiac Hx Cardiac Disorders: Yes Hx Hypertension: Yes - Pulmonary Hx Respiratory Disorders: No - Neurological HX Cerebrovascular Accident: Yes - HEENT Hx HEENT Disorder: No - Renal Hx Renal Disorder: No - Endocrine/Metabolic Hx Endocrine Disorders: No - Hematological/Oncological Hx Blood Disorders: Yes Hx Cancer: Yes (Bladder CA - long time ago) Hx Chemotherapy: Yes - Integumentary Hx Dermatological Disorder: Yes Other/Comment: skin discolorations - Musculoskeletal/Rheumatological Hx Falls: No - Gastrointestinal Hx Gastrointestinal Disorders: Yes - Genitourinary/Gynecological Hx Genitourinary Disorders: Yes - Psychiatric Hx Psychophysiologic Disorder: No Hx Substance Use: No - Surgical History Hx Cardiac Catheterization: Yes Hx Cholecystectomy: Yes Hx Coronary Stent: Yes (x2) - Anesthesia Hx Anesthesia: Yes Hx Anesthesia Reactions: No Hx Malignant Hyperthermia: No Family/Social History - Physician Review Nursing Documentation Reviewed: Yes Family/Social History: No Known Family HX Smoking Status: Former Smoker Hx Alcohol Use: No Hx Substance Use: No Allergies/Home Meds Allergies/Adverse Reactions: Allergies No Known Allergies Allergy (Verified 08/02/17 17:02) Home Medications: Home Meds Medication Instructions Recorded Confirmed Atorvastatin [Lipitor] 40 mg PO DAILY 05/19/16 08/28/17 amLODIPine [Norvasc] 10 mg PO DAILY 05/19/16 08/28/17 Warfarin [Coumadin] 4 mg PO MWF 08/03/17 08/28/17 Review of Systems - Review of Systems Systems not reviewed;Unavailable: Acuity of Condition Physical Exam - Physical Exam Narrative Physical Exam (Text): Constitutional: No acute distress. Head: Normocephalic. Atraumatic. Eyes: PERRL. ENT: Moist mucous membranes. Neck: Supple. Cardiovascular: Regular rate. Chest: No tenderness. Respiratory: Clear to auscultation bilaterally. GI: Soft. Nontender. Nondistended. Back: No CVA tenderness. Musculoskeletal: Bilateral pitting edema. No tenderness of extremities. Skin: No rash. Neurologic: Alert, no focal deficit. Vital Signs Temp Pulse Resp BP Pulse Ox 09/12/17 08:08 18 09/12/17 07:50 124 H 12 115/73 94 L 09/12/17 07:35 114 H 12 138/63 98 09/12/17 07:28 143 H 147/80 09/12/17 06:55 98.4 F 63 18 147/80 96 Medical Decision Making ED Course and Treatment: 09/12/17 07:24 Impression: A 87 year old female with shortness of breath. History of CHF. Plan: -- Chest xray -- EKG -- Labs -- Urinalysis -- Cardizem -- Reassess and disposition Prior Visits: Notes and results from previous visits were reviewed. Patient last seen in the ED on 08/28/17 and hospitalized for CHF and pneumonia. Progress Notes: EKG shows atrial fibrillation at [address]-segment elevations. Interpreted by me. Report Date : 09/12/2017 08:11:52 Procedure: Chest xray Dictator : Satinder Carmona MD IMPRESSION: Persistent mild pulmonary vascular congestive changes with bilateral effusions right larger than left. Suspected bilateral lower lobe alveolar-type infiltrates. HR and BP normalized after Cardizem. BiPap started as patient states she felt much better on CPAP from ambulance. Dr. Myers accepts patient to his service. - Lab Interpretations Lab Results: 09/12/17 07:23 09/12/17 07:51 Lab Results 09/12/17 07:51: Blood Type A POSITIVE, Antibody Screen Negative, BBK History Checked Patient has bt 09/12/17 07:51: Sodium 137, Potassium 4.1, Chloride 94 L, Carbon Dioxide 29, Anion Gap 18, BUN 19, Creatinine 0.9, Est GFR ( Amer) > 60, Est GFR (Non- Af Amer) 60, Random Glucose 210 H, Calcium 9.0, Total Bilirubin 0.8, AST 29, ALT 47, Alkaline Phosphatase 120, Total Creatine Kinase 52, Troponin I 0.02, NT- Pro-B Natriuret Pep 6820 H, Total Protein 7.2, Albumin 4.0, Globulin 3.2, Albumin/Globulin Ratio 1.3 09/12/17 07:51: PT 49.2 H, INR 4.16 H*, APTT 38.4 H 09/12/17 07:23: WBC 12.2 H D, RBC 4.65, Hgb 12.0, Hct 38.6, MCV 83.0, MCH 25.8, MCHC 31.1, RDW 15.2 H, Plt Count 456 H, MPV 9.2, Gran % 80.9 H, Lymph % (Auto) 11.7 L, [place] % (Auto) 5.8, Eos % (Auto) 1.4 L, Baso % (Auto) 0.2, Gran # 9.90 H , Lymph # (Auto) 1.4, [place] # (Auto) 0.7 H, Eos # (Auto) 0.2, Baso # (Auto) 0.03 I have reviewed the lab results: Yes - RAD Interpretation Radiology Orders: 09/12/17 07:21 CHEST PORTABLE [RAD] Stat - Medication Orders Current Medication Orders: diltiaZEM IVPB 100mg in NS (Cardizem 100mg In Ns) 100 mls @ 5 mls/hr IV .Q20H PRN; Protocol; 5 MG/HR PRN Reason: TITRATE PER MD ORDER Last Admin: 09/12/17 07:25 Dose: 5 mls/hr eMAR Start Stop Document 09/12/17 07:25 ZOHREH (Rec: 09/12/17 07:26 ZOHREH [id number]) Intravenous Solution Start Date 09/12/17 Start Time 07:25 Discontinued Medications Diltiazem HCl (Cardizem) 20 mg IVP STAT STA Stop: 09/12/17 07:28 Last Admin: 09/12/17 07:28 Dose: 20 mg Comments: unable to scan IVP Administration Document 09/12/17 07:28 ZOHREH (Rec: 09/12/17 07:29 ZOHREH [id number]) Charges for Administration # of IVP Administrations 1 MAR Pulse and Blood Pressure Document 09/12/17 07:28 ZOHREH (Rec: 09/12/17 07:29 ZOHREH [id number]) Pulse Pulse Rate (60-90) 143 Blood Pressure Blood Pressure (100/60-150/90) 147/80 - Scribe Statement The provider has reviewed the documentation as recorded by the Scribmoisés Huggins Provider Scribe Attestation: All medical record entries made by the Scribe were at my direction and personally dictated by me. I have reviewed the chart and agree that the record accurately reflects my personal performance of the history, physical exam, medical decision making, and the department course for this patient. I have also personally directed, reviewed, and agree with the discharge instructions and disposition. Disposition/Present on Arrival - Present on Arrival Any Indicators Present on Arrival: No History of DVT/PE: No History of Uncontrolled Diabetes: No Urinary Catheter: No History Surgical Site Infection Following: None - Disposition Have Diagnosis and Disposition been Completed?: Yes Diagnosis: CHF exacerbation, Rapid atrial fibrillation Disposition: HOSPITALIZED Disposition Time: 08:35 Patient Plan: Observation, Telemetry Condition: FAIR
[2017-09-12 08:08] LABS: ALB/GLOB RATIO 1.3 (1.1-1.8); ALT/SGPT 47 U/L (7-56); AST/SGOT 29 U/L (14-36); BLOOD UREA NITROGEN 19 mg/dL (7-21); GFR AFRICAN-AMERICAN > 60; GFR NON-AFRICAN AMERICAN 60
--- NOTE | 2017-09-12 08:13 | RAD ---
HISTORY: dyspnea COMPARISON: Comparison chest 09/06/2017 FINDINGS: LUNGS: Persistent mild pulmonary vascular congestive changes with bilateral effusions right larger than left. Suspected bilateral lower lobe alveolar-type infiltrates. PLEURA: No significant pleural effusion identified, no pneumothorax apparent. CARDIOVASCULAR: Heart size difficult to assess due to silhouetting both cardiac borders OSSEOUS STRUCTURES: No significant abnormalities. VISUALIZED UPPER ABDOMEN: Normal. OTHER FINDINGS: None. IMPRESSION: Persistent mild pulmonary vascular congestive changes with bilateral effusions right larger than left. Suspected bilateral lower lobe alveolar-type infiltrates.
[2017-09-12 08:17] LABS: B-TYPE NATRIURETIC PEPTIDE 6820 pg/mL (0-450); TROPONIN I 0.02 ng/mL
[2017-09-12 08:26] LABS: PROTHROMBIN TIME 49.2 SECONDS (9.4-12.5)
[2017-09-12 08:27] LABS: INR 4.16 (0.93-1.08); PARTIAL THROMBOPLASTIN TIME 38.4 Seconds (25.1-36.5)
--- NOTE | 2017-09-12 10:34 | CARD ---
APPROVED REPORT EKG Measurement Heart [id number] <Conclusion> Atrial fibrillation with rapid ventricular response Right axis deviation Anteroseptal infarct, age undetermined No changee xcept the rate is faster.
[2017-09-12 11:33] LABS: URINE BILIRUBIN NEGATIVE (NEGATIVE); URINE BLOOD SMALL (NEGATIVE); URINE GLUCOSE (UA) NEGATIVE (NEGATIVE); URINE LEUKOCYTE ESTERASE SMALL Leu/uL (NEGATIVE); URINE PROTEIN 100 mg/dL (<30 mg/dL); URINE UROBILINOGEN 0.2 E.U./dL (<1 E.U./dL)
[2017-09-12 11:42] LABS: URINE APPEARANCE CLEAR (CLEAR); URINE COLOR YELLOW (YELLOW)
[2017-09-12 12:04] LABS: URINE BACTERIA MANY (NEG)
[2017-09-12 12:05] LABS: URINE AMORPHOUS SEDIMENT FEW
[2017-09-12 15:22] VITALS: BMI 15.0
[2017-09-12] MEDS ORDERED: Pneumococcal 23-Valent Vaccine IM ONE (15:22)
--- NOTE | 2017-09-13 05:39 | HP ---
CHIEF COMPLAINT AND HISTORY OF PRESENT ILLNESS: This is an 87-year-old female who is coming to the hospital complaining of shortness of breath. She had woken up this morning with acutely short of breath. She came in with her daughter because of this difficulty with breathing. When she was brought in by EMS, she was found to have oxygen saturation of 77% although she was on 4 liters of oxygen at home. The patient was having difficulty breathing and was placed on BiPAP. She was surrounded by her family who was able to give most of the information and I also spoke with Dr. Faith. The patient had been on Lasix at home and had been compliant. The patient has no fevers or chills. REVIEW OF SYSTEMS: Is limited given the patient's acute status. The patient's family would like to continue DNR status. They are interested in possible hospice after discussion regarding end of life care. ALLERGIES: NO KNOWN DRUG ALLERGIES. HOME MEDICATIONS: Have been reviewed on the [facility]. PAST MEDICAL HISTORY: Mitral stenosis, hypertension, bladder cancer, chemotherapy, coronary artery disease with stent, CHF secondary to diastolic dysfunction, hypoxia on home O2, atrial fibrillation on Coumadin. SOCIAL HISTORY: She was a smoker. She smoked about half a pack per day in the past, but had quit. FAMILY HISTORY: Noncontributory. PHYSICAL EXAMINATION: VITAL SIGNS: Temperature is 98.4, pulse varies from 102 to 121, O2 saturation is 95%. GENERAL: The patient lying in bed, uncomfortable, and in no acute distress. HEENT: Atraumatic and normocephalic. Anicteric sclerae. Moist mucosa. [place] conjunctivae. No oral lesions. NECK: No JVD, anterior and posterior adenopathy, thyromegaly, or bruits. CARDIOVASCULAR: S1 and S2 regular. No murmur, rubs, or gallop. LUNGS: She is tachypneic. There are rales bilaterally. ABDOMEN: Bowel sounds are positive. Soft, nontender and nondistended. No hepatosplenomegaly. No rebound and no guarding EXTREMITIES: No cyanosis, clubbing, or edema. NEUROLOGIC: Unable to fully assess, but the patient is able to move all 4 extremities on command. PSYCHIATRIC: Unable to assess. GENITOURINARY: No CVA tenderness. VASCULAR: 2+ pulses in the carotid pulses and pedal pulses. SKIN: No erythema or nodules. SPINE: Shows normal curvature. LABORATORY DATA: The patient has a white count of 12.2, hemoglobin of 12, platelet count of 456. INR is 4.1. Chemistry shows a sodium of 137, potassium is 4.1, creatinine 0.9. Troponin is 0.02. Albumin is 4. Urine now shows ketones are negative, blood small, nitrites are negative, bilirubin is negative. A chest x-ray done shows persistent pulmonary vascular congestion, but bilateral effusion right greater than left, suspected bilateral lower lobe alveolar type infiltrates. EKG shows heart rate of 157 with rapid rate. ASSESSMENT: 1. Atrial fibrillation with rapid rate. 2. Acute congestive heart failure secondary to diastolic dysfunction. 3. Atrial fibrillation, on anticoagulation. 4. Mitral stenosis. 5. Gait dysfunction. 6. Hypoxia, on home oxygen. 7. Do not resuscitate/do not intubate. PLAN: The patient is currently on BiPAP. She is given IV diuretics. When she came into the ER, she was put on Cardizem. She is going to have her Coumadin on hold. She is going to get evaluation for hospice. I will also get evaluation by Cardiology and Pulmonary. The patient is on Norvasc for hypertension. She is going to continue with BiPAP. She is going to be on a heart-healthy diet. She is going to continue DNR status. I did confirm this with the patient's family. Rock Myers MD
[2017-09-13 07:17] LABS: PROTHROMBIN TIME 56.7 SECONDS (9.4-12.5)
[2017-09-13 07:18] LABS: INR 4.78 (0.93-1.08)
--- NOTE | 2017-09-13 08:08 | PN ---
DATE: 09/13/2017 SUBJECTIVE: The patient continues to have shortness of breath. She is able to communicate. She is better than when she first came in. PHYSICAL EXAMINATION: VITAL SIGNS: Temperature is 98.2, pulse is 96, blood pressure 130/68. GENERAL: The patient is lying in bed, flat, comfortable. HEENT: No oral lesion. Anicteric sclerae. Moist mucosa. NECK: No JVD, adenopathy, or thyromegaly. CARDIOVASCULAR: S1 and S2, regular. No murmurs, rubs, or gallops. LUNGS: Clear to auscultation bilaterally. No wheeze, rales, or rhonchi. ABDOMEN: Bowel sounds are positive. Soft, nontender and nondistended. EXTREMITIES: No cyanosis, clubbing or edema. ASSESSMENT: 1. Acute congestive heart failure secondary to diastolic dysfunction. 2. Mitral valve stenosis. 3. Atrial fibrillation with rapid rate, on Cardizem. 4. Atrial fibrillation, on anticoagulation. 5. Gait dysfunction. 6. Hypoxia, on home oxygen. 7. Do not resuscitate/do not intubate. PLAN: The patient is currently on Cardizem. The patient is going to continue with Colace for constipation, on Lipitor for dyslipidemia. She is on Norvasc. She is going to continue with Zestril. She is on BIPAP. Continue on furosemide. She is going to be seen by Cardiology and Pulmonary. The family has decided for hospice services. We will get hospice evaluation to be done. She is to continue the heart-healthy diet. Rock Myers MD
--- NOTE | 2017-09-13 09:33 | CON ---
DATE: 09/13/2017 PULMONARY CONSULTATION REFERRING PHYSICIAN: Rock Myers MD. REASON FOR CONSULTATION: Shortness of breath. HISTORY OF PRESENT ILLNESS: The patient is a chronically ill 87-year-old female, with past medical history significant for recurrent congestive heart failure, atrial fibrillation, mitral stenosis, coronary artery disease, chronic pleural effusions, who presented to [facility] with severe shortness of breath at rest and dyspnea on exertion - soon after awakening yesterday morning. In addition, the patient was noted to have a low pulse oximetry at home. The patient denies cough or sputum production. The patient also denies chest pain, coughing up of blood, or chest pain - made worse with deep respirations. There is no history of temperatures, chills, or infectious exposure. There is no history of night sweats, weight loss, or appetite change prior to the above events. No history of calf pains. No history of syncope or diaphoresis. No history of recent travel or trauma. REVIEW OF SYSTEMS: No history of nausea, vomiting, or diarrhea. No acute urinary symptoms. No new neurologic or musculoskeletal complaints. Rest of the review of systems is negative. ALLERGIES: NO KNOWN ALLERGIES. SOCIAL HISTORY: Negative for tobacco, negative for alcohol. FAMILY HISTORY: No inheritable diseases. HOME MEDICATIONS: Include Norvasc, Coumadin, Zestril, Colace, Lipitor, and Tylenol. PHYSICAL EXAMINATION: GENERAL: The patient appears comfortable this morning. She is not short of breath at rest. She is not using accessory muscles for breathing. VITAL SIGNS: Temperature is 97.8, pulse on the monitor is 76, respiratory rate 18/20, blood pressure 127/68. Oxygen saturation on BiPAP is 95%. HEENT: Normocephalic, atraumatic. No JVD. CARDIOVASCULAR: Systolic ejection murmur at the lower left sternal border. Positive S3 gallop. LUNGS: Decreased breath sounds at both bases with crackles. No rhonchi. No wheezing. EXTREMITIES: Positive for edema. No cyanosis or clubbing. Calves are nontender to palpation. GASTROINTESTINAL: Abdomen is soft, nontender, and nondistended. Bowel sounds are positive. SKIN: No acute rash. NEUROLOGIC: Limited at the present time. PERTINENT LABORATORY DATA: Chest x-ray was done yesterday and reviewed. There is moderately severe pulmonary vascular congestion noted. There are also chronic bilateral pleural effusions noted. CBC: White count 12.2 K, hemoglobin 12, hematocrit 38.6, platelets of 456,000. INR 4.16. Complete metabolic profile: Chloride 94, glucose 210. B-type natriuretic peptide 6820. Rest of the metabolic profile is within normal limits. IMPRESSION: 1. Recurrent congestive heart failure. 2. Rapid atrial fibrillation. 3. Chronic bilateral pleural effusions. 4. Mitral stenosis. 5. Hypoxemia. PLAN: The patient presented to [facility] with acute shortness of breath at rest, and dyspnea on exertion - soon after awakening yesterday morning. In addition, as above, the patient's pulse oximetry was noted to be low at home. The daughter then had the patient transported to [facility] for additional evaluation and treatment. I did review the chest x-ray as above. Moderately severe congestive heart failure is noted, with bilateral pleural effusions. I have also reviewed the laboratory data. A significant increase in the B-type natriuretic peptide is noted. Cardiology consult with Dr. Easley has been ordered. The patient is currently on intravenous Lasix. The patient also presented with rapid atrial fibrillation. The ventricular rate is much more controlled this morning. On physical exam, there is no significant bronchospasm. In addition, I will try transitioning to nasal cannula this morning. I would still like the patient to be on BiPAP at night. The patient does state to feeling much better this morning.. She appears clinically improved. I will order a repeat chest x-ray for tomorrow - for comparison. I will also place the patient on aspiration precautions. Again, the patient does appear improved today - compared to yesterday. However, her future status/prognosis does remain poor. I will discuss the above with Dr. Myers this morning. Thank you very much for this pulmonary consultation. Deandre Flaherty MD MTDDary
[2017-09-13] MEDS ORDERED: Non Formulary Medication (Warfarin [Coumadin] 4 MG) PO SCH (10:00)
[2017-09-13] MEDS: diltiaZEM IVPB 100mg in NS 100 ML IV PRN (14:30)
--- NOTE | 2017-09-13 19:48 | CON ---
DATE: 09/13/2017 REQUESTING PHYSICIAN: Dr. Pozo. REASON FOR CONSULTATION: Dyspnea. HISTORY OF PRESENT ILLNESS: This is an 87-year-old woman well-known to us with a history of severe functional mitral stenosis, coronary artery disease, chronic atrial fibrillation, who has had multiple admissions with decompensated congestive heart failure recently. She presented to the emergency room yesterday with recurrent dyspnea. She was placed on BiPAP with some improvement. Bilateral effusions were noted. Her functional status has significantly deteriorated over the past several months. She underwent cardiac catheterization at [facility] over a year ago and multivessel PCI was performed at that time. Her mitral valve disease was not felt to be amendable to any intervention then. She is maintained on medical therapy and attempts have been made to provide the highest degree of a beta-blockade possible without causing hypotension in order to allow for a greater diastolic filling time. Despite this, she has had steady deterioration. She has currently been made a DNR, and discussions are being made for possible hospice care. She has been maintained on home oxygen at home. PAST MEDICAL HISTORY: Notable for the problems mentioned above. She has a history of hypertension, prior bladder cancer treated with chemotherapy and chronic atrial fibrillation with a recent TIA. SOCIAL HISTORY: She was a smoker for many years, but has discontinued this. There is no history of alcohol use and she lives with her family at home. FAMILY HISTORY: Both parents are from age-related illness. ALLERGIES: NONE. CURRENT MEDICATIONS: Include IV diltiazem, Lasix 40 mg IV b.i.d., Norvasc 10 mg daily, Lipitor 40 mg daily, Zestril 20 mg daily. REVIEW OF SYSTEMS: Ten-point review of systems is notable mainly for the problems as mentioned above. PHYSICAL EXAMINATION: GENERAL: She is a elderly woman, who appears uncomfortable, and remains on BiPAP mask. VITAL SIGNS: Her blood pressure is 126/68 with a pulse of 110, in atrial fibrillation; respirations are 14. She is afebrile. HEENT: BiPAP mask is in place. JVD is present. CHEST: Diminished breath sounds at the bases with bilateral rales and rhonchi. HEART: PMI displaced laterally with distant sounds noted. The rhythm is irregularly irregular. ABDOMEN: Soft and nontender. Normoactive bowel sounds. EXTREMITIES: Trace ankle edema. SKIN: Warm and dry. PSYCHIATRIC: Moderate anxiety, but otherwise normal mood and affect. NEUROLOGIC: No gross motor or sensory deficits appreciable at the present time. DIAGNOSTIC DATA: White count is 12.2, hemoglobin and hematocrit of 12 and 38.6, with a platelet count of 456,000. INR is 4.78, potassium 4.1, BUN and creatinine are 19 and 0.9. BNP 6820. CK is negative, as is troponin. Chest x-ray reveals bilateral congestive changes with bilateral effusions and basilar atelectasis. Electrocardiogram reveals atrial fibrillation with rapid ventricular response, rightward axis, nonspecific ST-T abnormalities. IMPRESSION: 1. Recurrent decompensated congestive heart failure, acute on chronic diastolic. 2. Chronic atrial fibrillation with inadequate heart rate control. 3. Bilateral effusions, likely secondary to heart failure. 4. Advanced mitral valve disease, not a candidate for intervention at this time. 5. Rest of problems as noted. RECOMMENDATIONS: Resumption of beta-kuldeep therapy is advised at this time. Maximal tolerated beta-kuldeep dose is recommended. IV Lasix will continue for now. Norvasc will be discontinued in order to allow for maximum beta-kuldeep use and avoid hypotension. Her overall prognosis remains limited. She is aware of this and is willing to institute a DNR order. Thank you for this consultation. I will be happy to follow up her hospital course as needed. Jose Blancas MD
[2017-09-13 23:26] VITALS: RESP 18
[2017-09-14 06:26] VITALS: O2SAT 96
--- NOTE | 2017-09-14 08:13 | CP.PCM.PN ---
Subjective - Date & Time of Evaluation Date of Evaluation: 09/14/17 Time of Evaluation: 07:00 - Subjective Subjective: Stable on 2R. Still SOB. BiPap mask now. V/S noted. AF. PE: Lungs: Decreased BS at bases. Rhonchi. Cor: irreg. Abd.: soft Ext.: + mild edema Neuro.: alert I/O = N/A Labs noted Urine: + GPC ECG noted CXR noted. Objective - Vital Signs/Intake and Output Vital Signs (last 24 hours): Temp Pulse Resp BP Pulse Ox 98.4 F 81 18 136/73 96 09/14/17 06:00 09/14/17 06:00 09/14/17 06:00 09/14/17 06:00 09/14/17 06:00 Intake and Output: 09/14/17 09/14/17 06:59 18:59 Intake Total 240 Balance 240 - Medications Medications: Current Medications Atorvastatin Calcium (Lipitor) 40 mg PO HS [facility] Last Admin: 09/13/17 21:34 Dose: 40 mg Docusate Sodium (Colace) 100 mg PO TID [facility] Last Admin: 09/13/17 18:29 Dose: 100 mg Furosemide (Lasix) 40 mg IVP BID [facility] Last Admin: 09/13/17 18:28 Dose: 40 mg diltiaZEM IVPB 100mg in NS (Cardizem 100mg In Ns) 100 mls @ 5 mls/hr IV .Q20H PRN; Protocol; 5 MG/HR PRN Reason: TITRATE PER MD ORDER Last Admin: 09/13/17 14:30 Dose: 5 mg/hr, 5 mls/hr Lisinopril (Zestril) 20 mg PO DAILY [facility] Last Admin: 09/13/17 09:51 Dose: 20 mg Metoprolol Tartrate (Lopressor) 50 mg PO BRKDIN [facility] Last Admin: 09/13/17 18:29 Dose: 50 mg - Labs Labs: PT 56.7 SECONDS (9.4-12.5) H 09/13/17 06:00 INR 4.78 (0.93-1.08) H* 09/13/17 06:00 APTT 38.4 Seconds (25.1-36.5) H 09/12/17 07:51 Assessment and Plan - Assessment and Plan (Free Text) Assessment: Dyspnea CHF/Home O2 Bilateral pleural effusions Functional M CAD/PCIs Chronic AF HBP TIA Bladder cancer Former Smoker Bladder cancer Plan: Continue IV Lasix Increase metoprolol 50 TID BiPap Monitor I/O, INRs, labs, sats., tel As per Pulm., Dr. Myers DNR/DNI noted.
--- NOTE | 2017-09-14 08:15 | PN ---
DATE: 09/14/2017 PULMONARY NOTE SUBJECTIVE: The patient appears comfortable this morning. She is not short of breath at rest. PHYSICAL EXAMINATION: VITAL SIGNS: Temperature is 98.4, pulse 81, respirations 18, blood pressure 136/73. Oxygen saturation on nasal cannula is 96%. HEENT: Normocephalic, atraumatic. No JVD. CARDIOVASCULAR: Systolic ejection murmur at the lower left sternal border. Positive S3 gallop. LUNGS: Decreased breath sounds at the bases with crackles. No rhonchi. No wheezing. EXTREMITIES: Positive for edema. No cyanosis or clubbing. Calves are nontender to palpation. GI: Abdomen is soft, nontender and nondistended. Bowel sounds are positive. SKIN: No acute rash. NEUROLOGIC: Limited at the present time. IMPRESSION: 1. Recurrent congestive heart failure. 2. Rapid atrial fibrillation. 3. Chronic bilateral pleural effusions. 4. Mitral stenosis. 5. Hypoxemia. PLAN: The patient appears comfortable this morning. She is not short of breath at rest. She does state to feeling better overall. She is currently wearing her BiPAP. I did discuss the case with the night nurse at length. The night nurse stated that the patient had a pretty good night. I would continue with the treatment for congestive heart failure as per Cardiology. Input by Dr. Blancas is noted. The patient remains on intravenous Lasix. The patient also remains on a Cardizem drip. I have also ordered a repeat chest x-ray - for followup. The patient remains critically ill with overall poor prognosis. I will discuss the above with Dr. Myers. Deandre Flaherty MD MTDD
--- NOTE | 2017-09-14 10:09 | RAD ---
HISTORY: copd/chf COMPARISON: Portable chest 09/12/2017. FINDINGS: LUNGS: Hilar vascular markings are diminished indicative of improved CHF however. Underlying bilateral perihilar and basilar atelectasis or infiltrates are not completely excluded. PLEURA: Bilateral pleural effusions are suspected and appear [id number] volume bilaterally. No pneumothorax bilaterally. CARDIOVASCULAR: Cardiac silhouette is obscured by opacity bilaterally. OSSEOUS STRUCTURES: No significant abnormalities. VISUALIZED UPPER ABDOMEN: Normal. OTHER FINDINGS: None. IMPRESSION: Likely improved pulmonary vascular congestion with persistent [id number] bilateral pleural effusions and potential underlying bi-hilar, bibasilar atelectasis or infiltrates.
--- NOTE | 2017-09-14 11:23 | PN ---
DATE: 09/14/2017 SUBJECTIVE: The patient has no complaints of any chest pain. She states she still does not feel back to her baseline, but it is better than when she came in. She has been using the BiPAP. PHYSICAL EXAMINATION: VITAL SIGNS: Temperature is 98.2, pulse is 70, blood pressure 122/74, respirations 18, and O2 saturation 95%. GENERAL: The patient is lying in bed, flat, comfortable. HEENT: No oral lesion. Anicteric sclerae. Moist mucosa. NECK: No JVD, adenopathy, or thyromegaly. CARDIOVASCULAR: S1 and S2, regular. No murmurs, rubs, or gallops. LUNGS: Bilateral rales at the bases. No wheezing. A few rhonchi. ABDOMEN: Bowel sounds are positive. Soft, nontender and nondistended. EXTREMITIES: No cyanosis, clubbing or edema. ASSESSMENT: 1. Acute congestive heart failure secondary to diastolic dysfunction. 2. Mitral valve stenosis. 3. Atrial fibrillation, on Cardizem. 4. Gait dysfunction. 5. Hypoxia, on home oxygen. 6. Do not resuscitate/do not intubate. PLAN: The patient is currently comfortable. The patient's INR remained elevated yesterday at 4.7. She is on Colace for her constipation. She is on lisinopril. She is going to continue with metoprolol. She is on BiPAP. I will repeat her INR tomorrow. She is going to be under hospice care. She has a difficult time eating because of her symptoms. I have placed her on Lasix to see if she can be diuresed more. She is being followed by Cardiology and Pulmonary. Overall prognosis is poor. She remains DNR. Family accepted hospice. Rock Myers MD
[2017-09-14 11:52] VITALS: BP 109/50; PULSE 76; TEMP 98
== END 2017-09-14 12:35 | disposition home or self-care (01) ==
LOC: ED 06:48 → ERH 08:31 → 2RSO 12:37
PROVIDERS: ADMIT Internal Medicine Nephrology; ATTEND Internal Medicine Nephrology
DX: I11.0 Hypertensive heart disease with heart failure (principal); I50.33 Acute on chronic diastolic (congestive) heart failure; I05.0 Rheumatic mitral stenosis; I48.2 Chronic atrial fibrillation; R26.9 Unspecified abnormalities of gait and mobility; I25.10 Atherosclerotic heart disease of native coronary artery without angina pectoris; R09.02 Hypoxemia; Z66 Do not resuscitate; K59.00 Constipation, unspecified; E78.5 Hyperlipidemia, unspecified; Z86.73 Personal history of transient ischemic attack (TIA), and cerebral infarction without residual deficits; Z85.51 Personal history of malignant neoplasm of bladder; Z79.01 Long term (current) use of anticoagulants; Z87.891 Personal history of nicotine dependence; Z99.81 Dependence on supplemental oxygen
CPT/HCPCS: 36415; 71045; 80053; 81001; 82550; 83880; 84484; 85025; 85610; 85730; 86850; 86900; 87086; 87181; 93005; 94660; 96374; 99285; G0378; J1940